=== PATIENT | female | born 1940 | race Caucasian/White ===

== ENCOUNTER 2021-11-11 17:34 | Emergency (ER) | payer OTHER, MEDICARE, SELFPAY ==
[2021-11-11 17:37] VITALS: BP 141/69; PULSE 89; RESP 14; TEMP 36.7; O2SAT 99; BMI 28.7
[2021-11-11 18:39] LABS: Absolute Lymphocyte Count 0.82 X10^3/uL (0.83-4.51); Absolute Neutrophil Count 4.4 X10^3/uL (2.0-7.7); Basophil# 0.02 X10^3/uL; Basophil% 0.3 % (0-1); Eosinophil# 0.17 X10^3/uL; Eosinophils% 2.8 % (0-5); Hematocrit 33.4 % (37-47); Hemoglobin 11.5 g/dL (12.0-15.0); Lymphocyte # 0.82 X10^3/ul (0.83-4.51); Lymphocyte % 13.7 % (19-41); Mean Corp Hgb Conc 34.4 g/dL (32-36); Mean Corpuscular Hgb 32.6 pg (27.0-32.0); Mean Corpuscular Volume 94.6 fL (81-99); Mean Platelet Vol. 10.4 fl (6.2-12.0); Monocyte# 0.59 X10^3/uL; Monocyte% 9.8 % (0-10); NRBC Flagged by Analyzer 0 % (0-5); Neutrophil # 4.38 X10^3/uL (2.7-7.7); Neutrophil % 73.2 % (47-70); Platelet Count 206 K/mm3 (150-450); RBC Distribution Width CV 11.5 % (11.6-14.6); RBC Distribution Width SD 39.1 fl (35.1-43.9); Red Blood Count 3.53 M/mm3 (4.2-5.4)
[2021-11-11 18:56] LABS: ALB/GLOB Ratio 1.2 RATIO (0.9-2.4); AST(SGOT) 17 U/L (15-37); Alanine Aminotransfer ALT/SGPT 27 U/L (13-56); Albumin, Serum 3.6 g/dL (3.2-5.0); Alkaline Phosphatase 83 U/L (45-117); Anion Gap 6 (5-15); BUN 32 mg/dL (7-18); BUN/Creat Ratio 17.9 RATIO (10-20); Calcium,Total 8.7 mg/dL (8.5-10.1); Chloride 108 mmol/L (98-107); Creatinine, Serum 1.79 mg/dL (0.55-1.02); EST Glomerular Filtration Rate 29 mL/min (>60); Est Glom Filt Rate - Afr Amer 35 mL/min (>60); Estimated Creatinine Clearance 22.01 ml/min; Glucose 112 mg/dL (74-106); Potassium 3.6 mmol/L (3.5-5.1); Protein, Total 6.6 g/dL (6.4-8.2); Sodium Level 137 mmol/L (136-145)
[2021-11-11 18:58] LABS: Prothrombin Time (Protime)PT. 12.4 SECONDS (11.7-14.9)
[2021-11-11 18:59] LABS: Partial Thromboplast Time 24.8 Seconds (24.1-36.2)
--- NOTE | 2021-11-11 19:55 | EDS_ITS ---
HPI History of Present Illness Chief Complaint: GI Bleed Informant: patient Narrative Narrative: Very pleasant 81-year-old female arriving to the emergency department chief complaint of bright red blood per rectum. Patient states that she had a bowel movement at 4:00 and at 5:00 this afternoon in which the stool was brown but there was bright red blood. She denies any syncope or lightheadedness. She is recently started on aspirin and Plavix because of a stroke. Patient reports a recent colonoscopy with Dr. Asif and states that she was told it was negative. She denies any history of diverticulosis. She denies any rectal pain. No prior aortic repair. [facility] Medical History (Updated 11/11/21 @ 19:[address] August Anna DO) Stroke Home Medications aspirin 81 mg tablet,delayed release 81 mg PO DAILY 11/11/21 [History Last Taken Unknown] atorvastatin 80 mg tablet (Lipitor) 80 mg PO QHS 11/11/21 [History Last Taken Unknown] biotin 1,000 mcg chewable tablet 1,000 mcg PO DAILY 11/11/21 [History Last Taken Unknown] clopidogrel 75 mg tablet (Plavix) 75 mg PO DAILY 11/11/21 [History Last Taken Unknown] levothyroxine 75 mcg tablet 75 mcg PO DAILY 11/11/21 [History Last Taken Unknown] Allergy/AdvReac Type Severity Reaction Status Date / Time nitrofurantoin Allergy Hives Verified 11/11/21 17:36 [From Macrodantin] benzonatate AdvReac Other Verified 11/11/21 17:36 [From Tessalon Perles] Social History (Updated 11/11/21 @ 19:[address] August Anna DO) current gender identity: female Smoking Status: Former smoker ROS ROS ED Constitutional Constitutional ED: Denies chills or weight loss Eyes Eyes: Denies change in vision or diplopia ENT ENT ED: Denies ear pain, rhinorrhea or sore throat Cardiovascular Cardiovascular: Denies chest pain, orthopnea, palpitations or racing heartbeat Respiratory/Chest Respiratory/Chest: Denies cough, dyspnea or orthopnea Gastrointestinal Gastrointestinal: Reports other Details: Rectal bleeding ; Denies abdominal pain, diarrhea, nausea or vomiting Genitourinary Genitourinary ED: Denies dysuria, hematuria or urinary frequency Musculoskeletal Musculoskeletal: Denies arthralgias or myalgias Integumentary Denies abscess or rash Neurologic Neurologic: Denies headache(s) or weakness Psychiatric Psychiatric: Denies anxiety, depression, suicidal ideation or suicidal thoughts Endocrine Endocrinology: Denies polydipsia, polyphagia or polyuria Allergic/Immunologic Allergic/Immunologic ED: Denies mouth swelling, tongue swelling or urticaria EXAM Physical Exam Const Vital Signs: 11/11/21 17:37 Temperature 98.1 F Temperature Source Temporal Pulse Rate 89 Respiratory Rate 14 Blood Pressure 141/69 H Blood Pressure Mean 93 Pulse Ox 99 Oxygen Delivery Method Room Air Positive well nourished and well developed General Appearance ED: well developed HEENT Reports normocephalic, head/scalp atraumatic and moist mucous membranes Eyes PERRL and EOMs intact bilaterally Neck no lymphadenopathy, supple and no JVD Resp normal respiratory effort and clear to auscultation bilaterally Cardio regular rate, regular rhythm and no murmurs GI normal to inspection, nondistended, normoactive bowel sounds and non-tender Palpation: soft Narrative: On rectal examination there is bright red blood on the glove. There is no anal fissure or external hemorrhoid. Stool is brown Back/Spine no CVA tenderness and normal ROM Extremity normal to inspection General Extremety ED: Negative for edema General Extremity: Negative for edema Neuro oriented x3 and CN's II-XII intact bilaterally Sensorium / Orientation: alert Motor Exam: strength 5/5 throughout Psych mental status grossly normal Mood & Affect: Negative for depressed or tearful Skin no rashes or lesions noted and no wounds MDM MDM MDM Narrative Medical decision making narrative: Patient's hemoglobin is 11.5. I do not have anything old to compare to and she does not know what her hemoglobin would typically run. She is hemodynamically stable. She has had no further bleeding. I think it is reasonable that we discharge her home and have her observe. If she continues to bleed she would need to have her hemoglobin rechecked and possibly admission. Patient notes understanding of the plan Lab Data Attestation: I reviewed the patient's lab results. Labs: Laboratory Results - last 24 hr 11/11/21 11/11/21 11/11/21 18:00 18:00 18:00 WBC 6.0 RBC 3.53 L Hgb 11.5 L Hct 33.4 L MCV 94.6 MCH 32.6 H MCHC 34.4 RDW Std Deviation 39.1 RDW Coeff of Kristy 11.5 L Plt Count 206 MPV 10.4 Immature Gran % (Auto) 0.200 Neut % (Auto) 73.2 H Lymph % (Auto) 13.7 L Mason % (Auto) 9.8 Eos % (Auto) 2.8 Baso % (Auto) 0.3 Absolute Neuts (auto) 4.4 Absolute Lymphs (auto) 0.82 L Nucleated RBC % 0 PT 12.4 INR 1.0 APTT 24.8 Sodium 137 Potassium 3.6 Chloride 108 H Carbon Dioxide 23.0 Anion Gap 6 BUN 32 H Creatinine 1.79 H Estim Creat Clear Calc 22.01 Est GFR (MDRD) Af Amer 35 L Est GFR (MDRD) Non-Af 29 L BUN/Creatinine Ratio 17.9 Glucose 112 H Calcium 8.7 Total Bilirubin 0.30 AST 17 ALT 27 Alkaline Phosphatase 83 Total Protein 6.6 Albumin 3.6 Globulin 3.0 Albumin/Globulin Ratio 1.2 Discharge Plan Triage Chief Complaint: GI Bleed ED Provider: August Anna Dx/Rx/DC Orders Clinical Impression: Acute lower gastrointestinal bleeding Instructions: ED Lower GI Bleeding (Stable) Prescriptions: No Action atorvastatin [Lipitor] 80 mg Tablet 80 mg PO QHS clopidogrel [Plavix] 75 mg Tablet 75 mg PO DAILY aspirin [Aspir-81] 81 mg Tablet,Delayed Release (Dr/Ec) 81 mg PO DAILY levothyroxine 75 mcg Tablet 75 mcg PO DAILY biotin 1,000 mcg Tablet,Chewable 1,000 mcg PO DAILY Primary Care Provider: Reddy Crowe Referrals: Reddy Crowe MD [Primary Care Provider] - As Needed Disposition Disposition: Home, Self Care
[2021-11-11 20:08] VITALS: PULSE 85; RESP 18; O2SAT 96
== END 2021-11-11 20:10 | disposition home or self-care (01) ==
PROVIDERS: Emergency Provider Emergency Medicine; PCP Family Medicine; Visit Provider Emergency Medicine
DX: K92.1 Melena (principal); Z87.891 Personal history of nicotine dependence; Z86.73 Personal history of transient ischemic attack (TIA), and cerebral infarction without residual deficits; Z79.82 Long term (current) use of aspirin; Z79.02 Long term (current) use of antithrombotics/antiplatelets; Z79.899 Other long term (current) drug therapy
CPT/HCPCS: 80053; 85025; 85610; 85730; 99283; A4216

== ENCOUNTER 2022-09-23 09:53 | Emergency (ER) | payer MEDICARE, SELFPAY ==
[2022-09-23] VITALS (11 sets, daily range): BP systolic 108–180; BP diastolic 53–86; PULSE 50–68; RESP 13–18; TEMP 36.1; O2SAT 96–100; BMI 27.8
--- NOTE | 2022-09-23 10:12 | CT_ITS ---
We are attempting to reach an attending provider to discuss findings. An addendum with communication details will be sent when the communication is complete. EXAM: CT HEAD WITHOUT INTRAVENOUS CONTRAST CLINICAL INDICATION: Neuro deficit, acute, stroke suspected TECHNIQUE: Multiple axial images were obtained of the head without intravenous contrast. This CT exam was performed using one or more of the following dose reduction techniques: automated exposure control, adjustment of the mA and/or kV according to patient size, and/or use of iterative reconstruction technique. COMPARISON: No relevant prior studies available. FINDINGS: BRAIN AND EXTRA-AXIAL SPACES: Areas of diminished white matter density noted within both cerebral hemispheres suggestive of chronic microvascular change. No hemorrhage or mass effect. No evidence of acute ischemia. BONES/JOINTS: No suspicious lytic or blastic abnormality. SINUSES: No acute sinusitis. MASTOID AIR CELLS: Normal. Clear. ORBITS: Visualized globes, extraocular muscles, optic nerves and retrobulbar fat appear unremarkable. CT/STROKE Brain/Head without Cont IMPRESSION: 1. No acute intracranial abnormality. 2. Senescent changes. Aspect score 10 Electronically Signed: Kenny Knight MD at 11:38 EDT ,
--- NOTE | 2022-09-23 10:12 | EKG12_ITS ---
Test Reason : DIZZY Blood Pressure : / mmHG Vent. Rate : 051 BPM Atrial Rate : 051 BPM P-R Int : 156 ms QRS Dur : 078 ms QT Int : 454 ms P-R-T Axes : 051 032 041 degrees QTc Int : 418 ms Sinus bradycardia Otherwise normal ECG Confirmed by KWAN TIERNEY, MILLICENT ([id number]), content editor RAISA ANGLIN ([id number]) on 09/27/2022 2:28:28 PM Referred By: Confirmed By:BERT BOWENS MD
--- NOTE | 2022-09-23 10:13 | CT_ITS ---
INDICATION: Neuro deficit, acute, stroke suspected EXAMINATION: CTA HEAD - CTA Head and Neck W/ Contrast Injection (and W/O Contrast Images if performed) TECHNIQUE: [place] of [place]/head CT angiogram protocol was performed following IV contrast. Routine carotid CT angiogram protocol was performed without and with IV contrast. NASCET criteria using the distal ICAs for comparison were used for evaluation of stenoses. 3D reconstructions were reviewed of the CT angiogram head and neck. A radiation dose optimization technique was used for this scan. IV Contrast dosage and agent: 75 cc [id number] COMPARISON: None. FINDINGS: --Anterior cerebral circulation: ACAs: No significant stenosis at the visualized segments. ACOM: Not present. MCAs: 2 of the branches at the trifurcation of the right M1 segment appears significantly stenotic without occlusion. Left MCA and branches appear normal. --Posterior cerebral circulation: PCOMs: Right P-comm is present giving rise to the right PERIODICALS LIBRARY ASSISTANT. intellectual property paralegal: No significant stenosis at the visualized segments. BASILAR ARTERY: No significant stenosis. --Carotid and vertebral circulation: AORTIC ARCH AND BRANCHES: Normal anatomy, patent. RIGHT CCA: No occlusion, significant stenosis or dissection. RIGHT ICA: No occlusion, significant stenosis or dissection. LEFT CCA: No occlusion, significant stenosis or dissection. LEFT ICA: No occlusion, significant stenosis or dissection. RIGHT VERTEBRAL ARTERY: No occlusion, significant stenosis or dissection. LEFT VERTEBRAL ARTERY: No occlusion, significant stenosis or dissection. NECK SOFT TISSUES: Unremarkable. LUNG APICES: Clear. BONES: Unremarkable. 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 Otherwise unremarkable CTA head and neck. N.B. : The above Results were Read Back by Kenny Knight MD to Julio Marques and understanding confirmed on 09/23/2022 11:53:25 (ET). Electronically Signed: Kenny Knight MD at 11:54 EDT ,
--- NOTE | 2022-09-23 10:17 | NURSING ---
NO OLD EKGS
--- NOTE | 2022-09-23 10:19 | ED.VIS.STROK ---
HPI History of Present Illness Chief Complaint: Dizziness Narrative Narrative: Patient present with a chief complaint of dizziness, mild headache, and some left foot numbness. She states the symptoms started last evening. She states she just has a mild ache in her head. Its not bad or sudden on onset/thunderclap. She states her dizziness is just a feeling as though she might be on a boat. But its not spinning. Is just a little bit of unsteady feeling. But she states she walks without any difficulty at all. She does not lean to one side or have to grab anything. She does not feel presyncopal. She just feels like her balance is a little harder to control than normal. She also then noted that she has some numbness of her left foot only. And it is distal to the ankle all the way down to the toes. Nothing proximally. Nothing in upper extremities. No weakness. Nothing seems to make the symptoms better or worse. Patient does have a history of a stroke approximately 1 year ago in October 2021. She presented with aphasia. It resolved in 24 to 36 hours. She used to be on Plavix and aspirin. They also placed a loop recorder in about that time because as I suspect there was a question of possible A-fib. This July she was admitted to a hospital in [place]. That was for pneumonia. But she was found to be in atrial fibrillation. At that time she was placed on Eliquis and is still taking it as prescribed. She is also on a low-dose of metoprolol. Other medicines include levothyroxine. She is not on a statin aspirin or Plavix at this time. [facility] Medical History (Updated 09/23/22 @ 16:[address] Julio Marques MD) Atrial fibrillation Stroke Home Medications biotin 1,000 mcg chewable tablet 1,000 mcg PO DAILY 11/11/21 [History Last Taken Unknown] levothyroxine 75 mcg tablet 75 mcg PO DAILY 11/11/21 [History Last Taken Unknown] apixaban 2.5 mg tablet (Eliquis) 2.5 mg PO DAILY 09/23/22 [History Last Taken Unknown] metoprolol tartrate 25 mg tablet 25 mg PO BID 09/23/22 [History Last Taken Unknown] Allergy/AdvReac Type Severity Reaction Status Date / Time nitrofurantoin Allergy Hives Verified 09/23/22 09:54 [From Macrodantin] benzonatate AdvReac Other Verified 09/23/22 09:54 [From Tessalon Jena] Social History Smoking Status: Former smoker ROS ROS ED Constitutional Constitutional ED: Denies chills, fever(s) or weakness ENT ENT ED: Denies rhinorrhea or sore throat Cardiovascular Cardiovascular: Denies chest pain, palpitations or racing heartbeat Respiratory/Chest Respiratory/Chest: Denies cough or dyspnea Gastrointestinal Gastrointestinal: Denies nausea or vomiting Genitourinary Genitourinary ED: Denies hematuria Musculoskeletal Musculoskeletal: Denies myalgias Integumentary Denies rash Neurologic Neurologic: Reports headache(s) and paresthesias; Denies weakness Hematologic/Lymphatic Hematologic/Lymphatic: Reports easy bleeding and easy bruising Allergic/Immunologic Allergic/Immunologic ED: Denies urticaria EXAM Physical Exam Narrative Exam Narrative: Patient is awake alert sitting comfortably in bed. I watched her walk in down the koo when I came in. She had a good stable gait and was not ataxic or wide-based. HEENT shows no trauma. Eyes show normal range of motion. There is no visual field cut to direct confrontation. Neck shows no pain with motion. There is no carotid bruit heard on either side. Lungs are clear bilaterally and saturations are normal 100% on room air. Heart is regular. Slightly bradycardic. Sounds to be in normal sinus rhythm. I do not hear any murmurs. Abdomen is soft and completely nontender Back shows no tenderness on the neck thoracic or lumbar area. Extremities show no edema cords. Neurologic: Normal coordination visual strength throughout. She has an NIH of 1 losing 1 point for some very subtle sensory loss on the dorsum of the left foot compared with the right. She still feels the area but it does feel different. Skin shows no abnormal bruising or petechiae. No diaphoresis. No pallor. Const Vital Signs: 09/23/22 09:54 09/23/22 10:30 09/23/22 10:30 Temperature 97 F L Temperature Source Temporal Pulse Rate 58 L 50 L Respiratory Rate 14 18 Blood Pressure 143/82 H 139/53 H Blood Pressure Mean 102 81 Pulse Ox 100 96 96 Oxygen Delivery Method Room Air Room Air Room Air 09/23/22 11:00 09/23/22 11:30 09/23/22 13:13 Temperature Temperature Source Pulse Rate 53 L 54 L 51 L Respiratory Rate 16 16 15 Blood Pressure 137/67 H 180/74 H 134/63 H Blood Pressure Mean 90 109 86 Pulse Ox 96 97 98 Oxygen Delivery Method Room Air Room Air 09/23/22 12:00 09/23/22 12:30 09/23/22 13:00 Temperature Temperature Source Pulse Rate 56 L 51 L 50 L Respiratory Rate 18 14 13 Blood Pressure 134/63 H 125/66 H Blood Pressure Mean 86 85 Pulse Ox 99 97 97 Oxygen Delivery Method Room Air Room Air Room Air 09/23/22 15:00 Temperature Temperature Source Pulse Rate 57 L Respiratory Rate 14 Blood Pressure 109/86 H Blood Pressure Mean 93 Pulse Ox 99 Oxygen Delivery Method Room Air MDM MDM MDM Narrative Medical decision making narrative: My independent interpretation the patient's CT of the head shows no acute process. Final reading is similar. Radiology is reading of the CTA shows possible stenosis of 2 branches of trifurcation of her right MCA. Blood work shows minimal anemia which is not the source of her symptoms. Coagulation studies are normal. Electrolytes showed mild renal dysfunction but better than her baseline. We discussed case with teleneurology. They did not have the CT at the time. I called back and talk again to the neurologist. He looked at the images of the CT. His concern is that this is not stenosis but may be subtotal or subacute occlusive clot. He thought she should be at a facility that can do intervention if necessary. I talked with the family about this. Since all her care and family members work at [facility], she preferred to go there. Their family members were able to contact [facility] that actually called me. I had just gotten off the line with the transfer line for [facility] also. I discussed the case with Dr. Velasquez there. They will accept her in transfer. Patient was not given tPA as these symptoms are from last night, she is on Eliquis, and they have now resolved. Lab Data Labs: Laboratory Results - last 24 hr 09/23/22 09/23/22 09/23/22 10:19 10:22 10:22 WBC 8.2 RBC 3.88 L Hgb 11.2 L Hct 34.9 L MCV 89.9 MCH 28.9 MCHC 32.1 RDW Std Deviation 46.0 H RDW Coeff of Kristy 14.1 Plt Count 210 MPV 9.4 Immature Gran % (Auto) 0.200 Neut % (Auto) 72.8 H Lymph % (Auto) 12.8 L Grimes % (Auto) 6.2 Eos % (Auto) 7.6 H Baso % (Auto) 0.4 Absolute Neuts (auto) 6.0 Absolute Lymphs (auto) 1.05 Nucleated RBC % 0 PT 14.2 INR 1.1 APTT 27.0 Sodium Potassium Chloride Carbon Dioxide Anion Gap BUN Creatinine Estim Creat Clear Calc Est GFR (MDRD) Af Amer Est GFR (MDRD) Non-Af BUN/Creatinine Ratio Glucose Calcium Troponin I High Sens TSH POC Glucose 103 09/23/22 10:22 WBC RBC Hgb Hct MCV MCH MCHC RDW Std Deviation RDW Coeff of Kristy Plt Count MPV Immature Gran % (Auto) Neut % (Auto) Lymph % (Auto) Grimes % (Auto) Eos % (Auto) Baso % (Auto) Absolute Neuts (auto) Absolute Lymphs (auto) Nucleated RBC % PT INR APTT Sodium 137 Potassium 4.2 Chloride 104 Carbon Dioxide 26.0 Anion Gap 7 BUN 27 H Creatinine 1.56 H Estim Creat Clear Calc 24.84 Est GFR (MDRD) Af Amer 41 L Est GFR (MDRD) Non-Af 34 L BUN/Creatinine Ratio 17.3 Glucose 113 H Calcium 8.9 Troponin I High Sens 9 TSH 1.16 POC Glucose Radiography Diagnostic Testing: Clinical Impression(s) from Imaging Studies Brain CT 09/23/22 10:12 IMPRESSION: 1. No acute intracranial abnormality. 2. Senescent changes. Aspect score 10 Electronically Signed: Kenny Knight MD at 11:38 EDT , ADDENDUM: 09/23/22 1200 IMPRESSION: 1. No acute intracranial abnormality. 2. Senescent changes. Aspect score 10 N.B. : The above Results were Read Back by Kenny Knight MD to Julio Marques MD, and understanding confirmed on 09/23/2022 11:53:34 (ET). 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 Otherwise unremarkable CTA head and neck. N.B. : The above Results were Read Back by Kenny Knight MD to Julio Marques and understanding confirmed on 09/23/2022 11:53:25 (ET). 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 Otherwise unremarkable CTA head and neck. N.B. : The above Results were Read Back by Kenny Knight MD to Julio Marques and understanding confirmed on 09/23/2022 11:53:25 (ET). Electronically Signed: Kenny Knight MD at 11:54 EDT Reading Location ID and State: [facility] / [place] Tel , Service support , Chest X-Ray 09/23/22 11:30 IMPRESSION: No acute cardiopulmonary abnormality. Moderate size hiatal hernia. Electronically Signed: Kenny Knight MD at 11:57 EDT , EKG Initial EKG: Comments: My independent interpretation the patient's EKG that was done to look for possible rhythm abnormality shows a normal sinus rhythm but bradycardic rate at 51. No ectopy. No acute ST elevation or depression. NH interval, QRS duration and QTc are all normal. Critical Care Time Critical Care Time: Yes Critical care time (excluding procedures): 30-74 minutes, Discussing w/Patient &/or Family/Campground Attendant, Discussing w/Consultants, Arranging Admission or Transfer, Performing Direct Patient Care at Bedside and - (38 minutes several revisits, risk for worsening stroke, adding therapy, multiple discussions, risk for decompensation) Discharge Plan Triage Chief Complaint: Dizziness ED Provider: Julio Marques Dx/Rx/DC Orders Clinical Impression: TIA on medication, Coagulopathy, Cephalalgia Prescriptions: No Action levothyroxine 75 mcg Tablet 75 mcg PO DAILY biotin 1,000 mcg Tablet,Chewable 1,000 mcg PO DAILY metoprolol tartrate 25 mg tablet 25 mg PO BID Eliquis 2.5 mg tablet 2.5 mg PO DAILY Primary Care Provider: Reddy Crowe Referrals: Reddy Crowe MD [Primary Care Provider] - Disposition Disposition: Acute Care Hospital Discharge Location: [facility]
[2022-09-23 10:33] LABS: Absolute Lymphocyte Count 1.05 X10^3/uL (0.83-4.51); Basophil# 0.03 X10^3/uL; Basophil% 0.4 % (0-1); Eosinophil# 0.62 X10^3/uL; Eosinophils% 7.6 % (0-5); Hematocrit 34.9 % (37-47); Hemoglobin 11.2 g/dL (12.0-15.0); Lymphocyte # 1.05 X10^3/ul (0.83-4.51); Lymphocyte % 12.8 % (19-41); Mean Corp Hgb Conc 32.1 g/dL (32-36); Mean Corpuscular Hgb 28.9 pg (27.0-32.0); Mean Corpuscular Volume 89.9 fL (81-99); Mean Platelet Vol. 9.4 fl (6.2-12.0); Monocyte# 0.51 X10^3/uL; Monocyte% 6.2 % (0-10); NRBC Flagged by Analyzer 0 % (0-5); Neutrophil # 5.97 X10^3/uL (2.7-7.7); Neutrophil % 72.8 % (47-70); Platelet Count 210 K/mm3 (150-450); RBC Distribution Width CV 14.1 % (11.6-14.6); Red Blood Count 3.88 M/mm3 (4.2-5.4); White Blood Count 8.2 K/mm3 (4.4-11.0)
[2022-09-23 10:41] LABS: Bedside Glucose 103 mg/dL (74-106)
[2022-09-23 11:02] LABS: International Normalized Ratio 1.1; Prothrombin Time (Protime)PT. 14.2 SECONDS (11.7-14.9)
[2022-09-23 11:11] LABS: BUN 27 mg/dL (7-18); Creatinine, Serum 1.56 mg/dL (0.55-1.02); Estimated Creatinine Clearance 24.84 ml/min; Glucose 113 mg/dL (74-106)
[2022-09-23 11:12] LABS: Anion Gap 7 (5-15); BUN/Creat Ratio 17.3 RATIO (10-20); Calcium,Total 8.9 mg/dL (8.5-10.1); Chloride 104 mmol/L (98-107); EST Glomerular Filtration Rate 34 mL/min (>60); Est Glom Filt Rate - Afr Amer 41 mL/min (>60); Potassium 4.2 mmol/L (3.5-5.1); Sodium Level 137 mmol/L (136-145); Thyroid Stim Hormone (TSH) 1.16 uIU/mL (0.358-3.74); Troponin-I HS 9 pg/mL (3.0-54.0)
--- NOTE | 2022-09-23 11:30 | RAD_ITS ---
EXAM: XR CHEST, 1 VIEW CLINICAL INDICATION: Neuro deficit, acute, stroke suspected TECHNIQUE: Frontal view of the chest. COMPARISON: No relevant prior studies available. FINDINGS: LUNGS AND PLEURAL SPACES: Normal. No consolidation or edema. No pneumothorax. No effusion. HEART: Normal heart size. MEDIASTINUM: Moderate size hiatal hernia. BONES/JOINTS: No acute abnormality. TUBES, LINES AND DEVICES: Loop recorder in place. RAD/Chest 1 View IMPRESSION: No acute cardiopulmonary abnormality. Moderate size hiatal hernia. Electronically Signed: Kenny Knight MD at 11:57 EDT ,
--- NOTE | 2022-09-23 14:21 | ED.RN ---
PER DR. RAJAN, WE CAN COMPLETE NIH'S AT THIS TIME.
[2022-09-23] MEDS: Aspirin 325 MG Tablet PO (14:34)
--- NOTE | 2022-09-23 17:14 | ED.RN ---
per pt she updated daughter on leaving and did not want daughter called at this time.
== END 2022-09-23 17:15 | disposition short-term general hospital (02) ==
PROVIDERS: Emergency Provider Emergency Medicine; PCP Family Medicine; Visit Provider Emergency Medicine
DX: G45.9 Transient cerebral ischemic attack, unspecified (principal); I48.91 Unspecified atrial fibrillation; D68.9 Coagulation defect, unspecified; Z87.891 Personal history of nicotine dependence; Z79.01 Long term (current) use of anticoagulants; Z86.73 Personal history of transient ischemic attack (TIA), and cerebral infarction without residual deficits; R51.9 Headache, unspecified
CPT/HCPCS: 70450; 70496; 70498; 71045; 80048; 82962; 84443; 84484; 85025; 85610; 85730; 93005; 99284; Q9967; A4216

== ENCOUNTER 2022-10-05 15:40 | Inpatient (IN) | payer MEDICARE, SELFPAY ==
[2022-10-05 15:46] VITALS: BP 138/59; PULSE 59; RESP 16; TEMP 36.7; O2SAT 98; BMI 27.9
[2022-10-05 21:20] VITALS: BP 133/52; PULSE 64; RESP 18; TEMP 35.7; O2SAT 98; BMI 27.9
--- NOTE | 2022-10-05 21:34 | HP.PCM_ITS ---
[facility] - General General Date of Admission: 10/05/22 Date of Service: 10/05/22 HPI Narrative 09/23/2022 NAOMI HARRISON, is a 82 Female who presents to [facility] Emergency Department with stroke like symptoms. Transfer to [facility]. 09/23/2022 Admit to [facility]. Sudden onset headache, persistent headache, left leg numbness for 7 hours. Symptoms resolved upon arrival to [facility] ED. 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 EKG okay, Bilateral ICA negative significant stenosis. Order MRI brain, hold eliquis until ischemic stroke ruled out. Start Atorvastatin 40mg daily. CKD stage 3a baseline. 09/24/2022 MRI brain showed multiple scattered infarcts in right MCA territory. 09/25/2022 Fell with left ankle fracutre. 09/28/2022 ORIF left bimalleolar ankle fracture with Dr. Hayden. 09/29/2022 NWB left lower extremity, short leg splint. PT/OT. Passed swallow screen. Liver enzymes elevated to high doses of Percocet, but trending down. 10/05/2022 Admit to for 3 hours daily rehabilitation, strengthening, prior to discharge home alone. [facility] Medical History (Updated 10/05/22 @ 21:[address] Ramin Pedroza MD) Atrial fibrillation Hypothyroid Hypothyroidism Stroke Home Medications biotin 1,000 mcg chewable tablet 1,000 mcg PO DAILY Check with primary doctor 11/11/21 [History Last Taken Unknown] levothyroxine 75 mcg tablet 75 mcg PO DAILY hypothyroid 11/11/21 [History Last Taken Unknown] apixaban 2.5 mg tablet (Eliquis) 2.5 mg PO BID A-Fib 09/23/22 [History Last Taken Unknown] metoprolol tartrate 25 mg tablet 25 mg PO BID BP/HR 09/23/22 [History Last Taken Unknown] ergocalciferol (vitamin D2) 1,000 unit capsule 1,000 unit PO DAILY supplement 10/05/22 [History Last Taken Unknown] hydrocortisone 2.5 % rectal cream with applicator 1 ea MT 0600,2200 hemorrhoids 10/05/22 [History Last Taken Unknown] oxycodone 5 mg capsule 5 mg PO Q6H PRN Pain 1-10 10/05/22 [History Last Taken Unknown] pantoprazole 40 mg tablet,delayed release 40 mg PO 0600,1600 Check with primary doctor 10/05/22 [History Last Taken 10/05/22 06:00] pantoprazole 40 mg tablet,delayed release 40 mg PO DAILY Check with primary doctor 10/05/22 [History Last Taken Unknown] propranolol 10 mg tablet 10 mg PO BID PRN elevated BP/HR 10/05/22 [History Last Taken Unknown] triamcinolone acetonide 0.025 % topical cream 1 applic topical BID PRN itchy 10/05/22 [History Last Taken Unknown] Allergy/AdvReac Type Severity Reaction Status Date / Time nitrofurantoin Allergy Hives Verified 09/23/22 09:54 [From Macrodantin] benzonatate AdvReac Other Verified 09/23/22 09:54 [From Tessalon Perles] Family History (Updated 10/05/22 @ 21:[address] Ramin Pedroza MD) Father CAD (coronary artery disease) Diabetes Brother Multiple sclerosis Brother ALS (amyotrophic lateral sclerosis) Grandfather CAD (coronary artery disease) Surgical History (Updated 10/05/22 @ 21:[address] Ramin Pedroza MD) History of blepharoplasty History of hernia surgery History of mandibular surgery S/P skin biopsy Social History (Updated 10/05/22 @ 21:[address] Ramin Pedroza MD) household members: none Smoking Status: Former smoker alcohol intake: current alcohol intake frequency: 0-2 drinks per day Alcohol type: wine details: 2 glasses of wine every 2 weeks. substance use type: does not use ROS Constitutional Constitutional: Denies chills, fever(s) or weight gain ENT HEENT: Denies headache(s), nasal congestion or nasal discharge Cardiovascular Cardiovascular: Denies chest pain or palpitations Respiratory/Chest Respiratory/Chest: Denies cough, excessive phlegm production or shortness of breath with exertion Gastrointestinal Gastrointestinal: Denies abdominal pain, nausea or vomiting Genitourinary Genitourinary: Denies dysuria Musculoskeletal Musculoskeletal: Denies joint pain or joint swelling Integumentary Integumentary: Denies rash or wounds Neurologic Neurologic: Denies focal weakness, numbness or tingling Psychiatric Psychiatric: Denies anxiety, auditory hallucinations, depression, homicidal ideation or suicidal ideation Vital Signs Vital Signs Vital Signs: 10/05/22 15:46 Temperature 98.1 F Temperature Source Temporal Pulse Rate 59 L Respiratory Rate 16 Blood Pressure 138/59 H Blood Pressure Mean 85 Blood Pressure Source Monitor Blood Pressure Position Semi-Fowlers Blood Pressure Location Right Arm Pulse Ox 98 Oxygen Delivery Method Room Air Weight Weight: 73.8 kg Body Mass Index (BMI) 27.9 Indicators for Scoring Admitted with or Primary Diagnosis of CVA/Stroke: Yes Hx of CVA/Stroke: Yes Modified José Miguel Score MRS Score at time of Evaluation: 1-No significant disability NIHSS NIHSS 1a. Level of Consciousness: Alert; keenly responsive 1b. LOC Questions: Answers BOTH questions correctly. 1c. LOC Commands: Performs both tasks correctly. 2. Best Gaze: Normal 3. Visual: No visual loss 4. Facial Palsy: Normal symmetrical movements 5a. Left Arm: No drift; arm holds 90 (or 45) degrees for full 10 seconds 5b. Right Arm: No drift; arm holds 90 (or 45) degrees for full 10 seconds 6a. Left Leg: No drift; leg holds 30-degree position for full 5 seconds 6b. Right Leg: No drift; leg holds 30-degree position for full 5 seconds 7. Limb Ataxia: Absent 8. Sensory: Normal; no sensory loss 9. Best Language: No aphasia; normal 10. Dysarthria: Normal 11. Extinction and Inattention: No abnormality Total: 0 Physical Exam Const alert General Appearance: cooperative HEENT normocephalic Eyes PERRL and EOMs intact bilaterally Neck supple, no JVD and no carotid bruits Resp normal respiratory effort, normal air movement and clear to auscultation bi laterally Cardio regular rate and regular rhythm GI normal to inspection, nondistended, normoactive bowel sounds, non-tender and non-distended Extremity normal capillary refill Extremity Narrative: Left lower extremity splint. General Extremity: Negative for edema Skin no rashes or lesions noted General Skin Exam: no breakdown Psych affect normal Appearance: appropriate Assessment & Plan Assessment/Plan (1) Debility: (2) Bimalleolar fracture of left ankle: (3) Acute right MCA stroke: (4) Atrial fibrillation: (5) Chronic kidney disease, stage 3a: (6) Hypothyroidism: (7) Allergic rhinitis: PLAN: Plan 82 year old female with below past medical history hospitalized for multiple embolic infarcts right MCA territory, complicated by bimalleolar left ankle fracture requiring ORIF 09/28/2022, admitted to for 3 hours daily rehabilitation, strengthening, prior to discharge home alone. * Debility - PT/OT/ST. * Pain - Tylenol 1000mg q6h prn pain (1-5), Oxycodone 5mg q4h prn pain (6-10). * Bowel - senna/colace 2 tablets bid, Dulcolax 10mg pr x 1 prn, MOM 30ml po x 1 prn. * Atrial fibrillation - Metoprolol 25mg bid, Eliquis 2.5mg bid. * Rash - HC 2.5% bid, and bid prn. * Hypothyroidism - Levothyroxine 75mcg daily. * Gastritis - Pantoprazole 40mg bid thru 10/13/2022, then 40mg daily. * Bimalleolar left ankle fracture s/p ORIF - LLE short leg splint, NWB left lower extremity, follow with Dr. Hayden. * Vitamin D deficiency - D3 25mcg daily.
[2022-10-05] MEDS: oxyCODONE 5 MG Tablet PO (21:41)
[2022-10-05 21:42] VITALS: BP 133/52; PULSE 64
[2022-10-05] MEDS: Senna/Docusate Sodium 1 Tablet 2 TABLET PO (21:42)
[2022-10-05] MEDS: Hydrocortisone 2.5% Crm 1 APPLIC RC (21:42)
[2022-10-05] MEDS: Metoprolol Tartrate 25 MG Tablet PO (21:42)
[2022-10-05] MEDS: APIXABAN 2.5 MG TABLET (WCH) PO (21:42)
[2022-10-06] VITALS (7 sets, daily range): BP systolic 105–119; BP diastolic 52–56; PULSE 60–61; RESP 14–16; TEMP 36.8–37.4; O2SAT 95–98; BMI 27.8
[2022-10-06] MEDS: Hydrocortisone 2.5% Crm 1 APPLIC RC ×2 (05:49→20:37)
[2022-10-06] MEDS: Pantoprazole Sodium 40 MG Tablet PO ×2 (05:50→17:12)
[2022-10-06] MEDS: Levothyroxine 75 MCG Tablet PO (05:50)
[2022-10-06 06:04] LABS: Absolute Lymphocyte Count 2.12 X10^3/uL (0.83-4.51); Absolute Neutrophil Count 4.2 X10^3/uL (2.0-7.7); Basophil# 0.05 X10^3/uL; Basophil% 0.6 % (0-1); Hematocrit 31.7 % (37-47); Hemoglobin 9.9 g/dL (12.0-15.0); Lymphocyte # 2.12 X10^3/ul (0.83-4.51); Lymphocyte % 27.1 % (19-41); Mean Corp Hgb Conc 31.2 g/dL (32-36); Mean Corpuscular Hgb 29.2 pg (27.0-32.0); Mean Corpuscular Volume 93.5 fL (81-99); Mean Platelet Vol. 8.9 fl (6.2-12.0); Monocyte# 0.78 X10^3/uL; NRBC Flagged by Analyzer 0 % (0-5); Neutrophil # 4.15 X10^3/uL (2.7-7.7); Platelet Count 415 K/mm3 (150-450); RBC Distribution Width CV 14.8 % (11.6-14.6); RBC Distribution Width SD 51.1 fl (35.1-43.9); Red Blood Count 3.39 M/mm3 (4.2-5.4); White Blood Count 7.8 K/mm3 (4.4-11.0)
[2022-10-06 06:43] LABS: ALB/GLOB Ratio 0.6 RATIO (0.9-2.4); AST(SGOT) 72 U/L (15-37); Alanine Aminotransfer ALT/SGPT 83 U/L (13-56); Albumin, Serum 2.6 g/dL (3.2-5.0); Alkaline Phosphatase 527 U/L (45-117); Anion Gap 8 (5-15); BUN 28 mg/dL (7-18); BUN/Creat Ratio 17.9 RATIO (10-20); Calcium,Total 8.9 mg/dL (8.5-10.1); Chloride 105 mmol/L (98-107); Creatinine, Serum 1.56 mg/dL (0.55-1.02); EST Glomerular Filtration Rate 34 mL/min (>60); Est Glom Filt Rate - Afr Amer 41 mL/min (>60); Estimated Creatinine Clearance 24.84 ml/min; Globulin 4.1 g/dL (2.2-4.2); Glucose 103 mg/dL (74-106); Magnesium 2.2 mg/dL (1.6-2.6); Phosphorus 3.8 mg/dL (2.5-4.9); Potassium 3.9 mmol/L (3.5-5.1); Protein, Total 6.7 g/dL (6.4-8.2); Sodium Level 138 mmol/L (136-145)
[2022-10-06] MEDS: Cholecalciferol (VIT D3) 25 MCG TABLET (1,000 UNITS) PO (08:51)
[2022-10-06] MEDS: Metoprolol Tartrate 25 MG Tablet PO ×2 (08:51→20:36)
[2022-10-06] MEDS: APIXABAN 2.5 MG TABLET (WCH) PO ×2 (08:51→20:37)
--- NOTE | 2022-10-06 11:55 | PN_ITS ---
Subjective Subjective Patient seen, examined. She is eating breakfast. She has no new problems, concerns, issues, complaints. Pain is well controlled. Objective Data Objective Data Vital Signs: Vital Signs Temp Pulse Resp BP Pulse Ox O2 Del Method 98.2 F 60 16 119/52 L 97 Room Air 10/06/22 09:02 10/06/22 09:02 10/06/22 09:02 10/06/22 09:02 10/06/22 09:02 10/06/22 09:02 Oxygen Delivery Method Room Air Weight: 73.6 kg Body Mass Index (BMI) 27.8 Intake & Output: Intake and Output for Last 24 Hours 10/04/22 10/05/22 10/06/22 23:59 23:59 23:59 Intake Total 240 / 240 Output Total 200 / 200 200 / 200 Balance -200 / -200 40 / 40 Lab / Micro Data Result Diagrams: 10/06/22 05:55 10/06/22 05:55 Labs: Laboratory Results - last 24 hr 10/06/22 05:55: WBC 7.8, RBC 3.39 L, Hgb 9.9 L, Hct 31.7 L, MCV 93.5, MCH 29.2, MCHC 31.2 L, RDW Std Deviation 51.1 H, RDW Coeff of Kristy 14.8 H, Plt Count 415, MPV 8.9, Immature Gran % (Auto) 0.300, Neut % (Auto) 53.0, Lymph % (Auto) 27.1, Lynn % (Auto) 10.0, Eos % (Auto) 9.0 H, Baso % (Auto) 0.6, Absolute Neuts (auto) 4.2, Absolute Lymphs (auto) 2.12, Nucleated RBC % 0 10/06/22 05:55: Sodium 138, Potassium 3.9, Chloride 105, Carbon Dioxide 25.0, Anion Gap 8, BUN 28 H, Creatinine 1.56 H, Estim Creat Clear Calc 24.84, Est GFR (MDRD) Af Amer 41 L, Est GFR (MDRD) Non-Af 34 L, BUN/Creatinine Ratio 17.9, Glucose 103, Calcium 8.9, Phosphorus 3.8, Magnesium 2.2, Total Bilirubin 0.60, AST 72 H, ALT 83 H, Alkaline Phosphatase 527 H, Total Protein 6.7, Albumin 2.6 L , Globulin 4.1, Albumin/Globulin Ratio 0.6 L Physical Exam Const alert General Appearance: cooperative HEENT normocephalic Eyes PERRL and EOMs intact bilaterally Neck supple, no JVD and no carotid bruits Resp normal respiratory effort, normal air movement and clear to auscultation bilaterally Cardio regular rate and regular rhythm GI normal to inspection, nondistended, normoactive bowel sounds, non-tender and non-distended Extremity normal capillary refill Extremity Narrative: Left lower extremity short leg splint. General Extremity: Negative for edema Skin no rashes or lesions noted General Skin Exam: no breakdown Psych affect normal Appearance: appropriate Assessment & Plan Assessment/Plan (1) Debility: (2) Bimalleolar fracture of left ankle: (3) Acute right MCA stroke: (4) Atrial fibrillation: (5) Chronic kidney disease, stage 3a: (6) Hypothyroidism: (7) Allergic rhinitis: PLAN: Plan 82 year old female with below past medical history hospitalized for multiple embolic infarcts right MCA territory, complicated by bimalleolar left ankle fracture requiring ORIF 09/28/2022, admitted to for 3 hours daily rehabilitation, strengthening, prior to discharge home alone. * Debility - PT/OT/ST. * Pain - Tylenol 1000mg q6h prn pain (1-5), Oxycodone 5mg q4h prn pain (6-10). * Bowel - senna/colace 2 tablets bid, Dulcolax 10mg pr x 1 prn, MOM 30ml po x 1 prn. * Atrial fibrillation - Metoprolol 25mg bid, Eliquis 2.5mg bid. * Rash - HC 2.5% bid, and bid prn. * Hypothyroidism - Levothyroxine 75mcg daily. * Gastritis - Pantoprazole 40mg bid thru 10/13/2022, then 40mg daily. * Bimalleolar left ankle fracture s/p ORIF - LLE short leg splint, NWB left lower extremity, follow with Dr. Hayden. * Vitamin D deficiency - D3 25mcg daily. * Acute right MCA stroke - no deficits. Capacity Capacity Assessment Tool Can the patient make a choice & communicate that choice?: Yes Can the patient understand benefits, risks and alternatives?: Yes Can the patient make a logical, rational choice?: Yes Is the choice the patient makes consistent w/ their values?: Yes Is there an impending, emergent risk to the patient?: No Does the patient have an Advance Directive?: Yes Is there a Surrogate Available?: Yes i.e. HCPOA: Yes i.e. close relative (spouse, child, parent, sibling)?: Yes
--- NOTE | 2022-10-06 13:02 | REHABEVAL_ITS ---
Admission Information Primary Diagnosis:: Acute right MCA stroke, left bimalleolar fracture s/p ORIF. Status Changes from Prescreening?: No changes Identified Actual Problem List:: Falls, Pain, ALteration in Cmfrt, Alteration in Sleep, Mobility Impaired and Self Care Deficit Potential Problem List:: DVT, Bleeding, Infection, UTI, Aspiration, Falls, Skin Integrity and Depression Risk of Complications DVT: DEREK Hammonds Bleeding: Monitor Lab Values, Nursing to Teach Precautions for anti-coagulation therapy., Wound, if applicable, to be assessed every shift. and Stroke patients assessed for lethargy or change in status. Infection: Clinical Staff to Monitor for S/S of infection: and S/S of infection include fever, redness, warmth, etc. Urinary Tract Infection: Monitor for frequency, burning, discomfort, or incontinence. and Nursing will obtain urine sample for urinalysis and C&S when ordered. Aspiration: Clinical staff will monitor for coughing, drooling, congestion., Speech will evaluate swallowing and dsyphasia. and Nursing will monitor patient swallowing during meals. Falls: Patient will be evaluated for Fall Precautions and Patient will be placed on Fall Precautions as indicated per protocol. Skin Breakdown: Nursing will assess skin daily using assessment tool. and Nurs ing will place on Skin Breakdown Precautions as indicated. Pain: Clinical staff will assess patient's pain level per protocol., Medications will be given, if needed, and the pain level reassessed. and Other methods: Massage, distraction, decrease stimulus, etc. used PRN. Plan of Care Patient requires physician specializing in physical medicine and rehab oversight to provide close medical supervision of rehab issues including: Pain Management, Sleep Problems, Bowel and Bladder, Medical and co-morbidity Management, DVT pro phylaxis, Rehabilitation Leadership and Coordination of treatment team Patient needs Physical Therapy: For a minimum of 1 hour and At least 5 out of 7 days Patient needs Physical Therapy to improve:: Mobility, Strengthening, Transfers, Stretching, ROM, Endurance, Stairs, Gait and Balance Patient needs Occupational Therapy: For a minimum of 1 hour and At least 5 out of 7 days Patient needs Occupational Therapy to improve ADL's incl.: Eating, Grooming, Bathing, Dressing, Toileting, Toilet transfers, Higher functioning activities, Household tasks, Adaptive Equipment and Splinting Patient requires speech therapy: For a minimum of 1 hour and At least 5 out of 7 days Patient requires speech therapy for: Swallowing, Cognition, Language Skills and Compensatory Strategies Patient requires 24/7 Rehabilitation Nursing for: Pain Issues, Identifying and preventing risk factors, Monitoring and reporting current medical conditions, Assisting with ambulation, transfer, and all ADL's, Teaching patients about disease process and medications, Family teaching, Providing safe environment, Bowel and Bladder Issues, Skin integrity and Medication Management Patient needs Operator Automated Process/ Case Management for: Discharge Planning, Arranging Home Equipment or Services and Family Interventions Patient needs Dietary and Nutrition Services for: Adequate Nutrition and Nutritional Education Goals Patient will remain: free from falls and or injury at time of discharge. Patient will perform bed mobility at: MOD I level of assist. Patient will complete transfers from bed to chair at: MOD I level of assist. Patient will ambulate: with standby assist, with LRD and - (25 feet/) Patient will propel wheelchair: 100 feet and with standby assist Patient will complete upper body dressing at: MOD I level of assist. Patient will complete lower body dressing at: MOD I level of assist. Patient will complete toileting at: MOD I level of assist. Patient will perform bathing at: MOD I level of assist. Patient will complete grooming at: MOD I level of assist. Patient will complete home management skills at: MOD I level of assist. Patient will achieve: - (2 steps.) Patient will have pain level of: of 3 or less Patient's skin will: remain intact and free from infection. Patient will receive: adequate nutrition. Discharge Planning Pt Prognosis for Sig. Practical Improv. w/in Reasonable Time: Good Estimated Length of stay (days): 21 Anticipated D/C Destination: Home with Home Health Was Preadmission Assessment Accurate?: Yes
--- NOTE | 2022-10-06 15:34 | CHAPLAIN ---
Type of Pastoral Visit _x__ Initial Visit ___ Follow-up Visit ___ On-call Visit ___ General Patient Visit ___ Spiritual Assessment ___ Family Conference ___ Bereavement ___ Rapid Response ___ Code Blue ___ Other (describe below) Pastoral Care Referral From _x__ Patient ___ Family ___ Nurse ___ Physician ___ Real Estate Office Manager ___ Checking Clerk ___ Other (describe below) Sacrament/Intervention _x__ Active listening ___ Anointing ___ Rastafari ___ Bereavement ___ Communion ___ Teresa exploration ___ _x__ Life review ___ Prayer ___ Reconciliation ___ Sacrament of Sick ___ Supportive presence ___ Wedding ___ Other (describe below) Pastoral Comments patient reviews her reason for therapy and recent stroke that resulted in a fall; pt gives some life review; pt is recovering very well from the minor stroke but has assistance with foot after surgery; pt has a daughter nearby; pt does not indicate any other concerns; pt states she is fine and will ask for further support if needed
[2022-10-06] MEDS: Senna/Docusate Sodium 1 Tablet 2 TABLET PO (20:37)
[2022-10-06] MEDS: oxyCODONE 5 MG Tablet PO (20:52)
[2022-10-07] MEDS: Hydrocortisone 2.5% Crm 1 APPLIC RC ×2 (05:45→20:35)
[2022-10-07] MEDS: Levothyroxine 75 MCG Tablet PO (05:45)
[2022-10-07] MEDS: Pantoprazole Sodium 40 MG Tablet PO ×2 (05:45→17:12)
[2022-10-07 06:04] LABS: Absolute Lymphocyte Count 1.57 X10^3/uL (0.83-4.51); Absolute Neutrophil Count 3.8 X10^3/uL (2.0-7.7); Basophil# 0.04 X10^3/uL; Basophil% 0.6 % (0-1); Eosinophil# 0.59 X10^3/uL; Eosinophils% 8.8 % (0-5); Hematocrit 29.8 % (37-47); Hemoglobin 9.1 g/dL (12.0-15.0); Lymphocyte # 1.57 X10^3/ul (0.83-4.51); Lymphocyte % 23.5 % (19-41); Mean Corp Hgb Conc 30.5 g/dL (32-36); Mean Corpuscular Hgb 28.2 pg (27.0-32.0); Mean Corpuscular Volume 92.3 fL (81-99); Mean Platelet Vol. 8.8 fl (6.2-12.0); Monocyte# 0.65 X10^3/uL; Monocyte% 9.7 % (0-10); NRBC Flagged by Analyzer 0 % (0-5); Neutrophil # 3.81 X10^3/uL (2.7-7.7); Neutrophil % 57.1 % (47-70); Platelet Count 422 K/mm3 (150-450); RBC Distribution Width CV 14.7 % (11.6-14.6); RBC Distribution Width SD 49.9 fl (35.1-43.9); Red Blood Count 3.23 M/mm3 (4.2-5.4); White Blood Count 6.7 K/mm3 (4.4-11.0)
[2022-10-07 07:00] LABS: Anion Gap 8 (5-15); BUN 31 mg/dL (7-18); Calcium,Total 8.8 mg/dL (8.5-10.1); Chloride 108 mmol/L (98-107); Creatinine, Serum 1.55 mg/dL (0.55-1.02); EST Glomerular Filtration Rate 34 mL/min (>60); Est Glom Filt Rate - Afr Amer 41 mL/min (>60); Glucose 100 mg/dL (74-106); Potassium 4.3 mmol/L (3.5-5.1); Sodium Level 140 mmol/L (136-145)
[2022-10-07 08:24] VITALS: BP 112/48; PULSE 58; RESP 17; TEMP 36.9; O2SAT 96
--- NOTE | 2022-10-07 08:33 | CASEMGMT ---
Social Work IDT met with patient and dtr via conference call for Team meeting. Discussed patient's progress in PT/OT/ST/SN. Educated to [facility] insurance with [employer] 10/11 and continued stay is not guaranteed with each review. Pt has $300/day copay from days 1-5, after $0 copay. Pt's goal is to return home alone at [facility]. Will ReTeam weekly. SW to continue to follow for DC planning. Shawna Trevino MSW A R COLLECTIONS REP
[2022-10-07 09:54] VITALS: PULSE 70
[2022-10-07] MEDS: Cholecalciferol (VIT D3) 25 MCG TABLET (1,000 UNITS) PO (09:54)
[2022-10-07] MEDS: Metoprolol Tartrate 25 MG Tablet PO ×2 (09:54→20:33)
[2022-10-07] MEDS: APIXABAN 2.5 MG TABLET (WCH) PO ×2 (09:56→20:34)
--- NOTE | 2022-10-07 10:46 | CASEMGMT ---
Social Work Pt agreeable to ask dtr to provide copies of advanced directives. Shawna Trevino, DATABASE MARKETING MANAGER DATABASE MANAGEMENT SPECIALIST
--- NOTE | 2022-10-07 13:50 | NURSING ---
Sabino for Dr. Ragland's office requesting to reschedule appt and if walking boot could be provided if possible. Waiting for return call.
[2022-10-07 14:12] VITALS: BMI 27.8
--- NOTE | 2022-10-07 14:52 | PN_ITS ---
Subjective Subjective Patient seem, examined. Patient seen on Team rounds, her daughter Consuelo was on the phone. Radha has been doing well, her only complaint is to have something to help her sleep. Objective Data Objective Data Vital Signs: Vital Signs Temp Pulse Resp BP Pulse Ox O2 Del Method 98.5 F 70 17 112/48 L 96 Room Air 10/07/22 08:24 10/07/22 09:54 10/07/22 08:24 10/07/22 08:24 10/07/22 08:24 10/07/22 10:00 Oxygen Delivery Method Room Air Weight: 73.6 kg Body Mass Index (BMI) 27.8 Intake & Output: Intake and Output for Last 24 Hours 10/05/22 10/06/22 10/07/22 23:59 23:59 23:59 Intake Total 460 / 460 Output Total 200 / 200 550 / 550 Balance -200 / -200 -90 / -90 Lab / Micro Data Result Diagrams: 10/07/22 05:53 10/07/22 05:53 Labs: Laboratory Results - last 24 hr 10/07/22 05:53: WBC 6.7, RBC 3.23 L, Hgb 9.1 L, Hct 29.8 L, MCV 92.3, MCH 28.2, MCHC 30.5 L, RDW Std Deviation 49.9 H, RDW Coeff of Kristy 14.7 H, Plt Count 422, MPV 8.8, Immature Gran % (Auto) 0.300, Neut % (Auto) 57.1, Lymph % (Auto) 23.5, [place] % (Auto) 9.7, Eos % (Auto) 8.8 H, Baso % (Auto) 0.6, Absolute Neuts (auto) 3.8, Absolute Lymphs (auto) 1.57, Nucleated RBC % 0 10/07/22 05:53: Sodium 140, Potassium 4.3, Chloride 108 H, Carbon Dioxide 24.0, Anion Gap 8, BUN 31 H, Creatinine 1.55 H, Estim Creat Clear Calc 25.00, Est GFR (MDRD) Af Amer 41 L, Est GFR (MDRD) Non-Af 34 L, BUN/Creatinine Ratio 20.0, Glucose 100, Calcium 8.8 Physical Exam Const alert General Appearance: cooperative HEENT normocephalic Eyes PERRL and EOMs intact bilaterally Neck supple, no JVD and no carotid bruits Resp normal respiratory effort, normal air movement and clear to auscultation bilaterally Cardio regular rate and regular rhythm GI normal to inspection, nondistended, normoactive bowel sounds, non-tender and non-distended Extremity normal capillary refill Extremity Narrative: Left short leg splint. General Extremity: Negative for edema Skin no rashes or lesions noted General Skin Exam: no breakdown Psych affect normal Appearance: appropriate Assessment & Plan Assessment/Plan (1) Debility: (2) Bimalleolar fracture of left ankle: (3) Acute right MCA stroke: (4) Atrial fibrillation: (5) Chronic kidney disease, stage 3a: (6) Hypothyroidism: (7) Allergic rhinitis: PLAN: Plan 82 year old female with below past medical history hospitalized for multiple embolic infarcts right MCA territory, complicated by bimalleolar left ankle fracture requiring ORIF 09/28/2022, admitted to for 3 hours daily rehabilitation, strengthening, prior to discharge home alone. * Debility - PT/OT/ST. * Pain - Tylenol 1000mg q6h prn pain (1-5), Oxycodone 5mg q4h prn pain (6-10). * Bowel - senna/colace 2 tablets bid, Dulcolax 10mg pr x 1 prn, MOM 30ml po x 1 prn. * Atrial fibrillation - Metoprolol 25mg bid, Eliquis 2.5mg bid. * Rash - HC 2.5% bid, and bid prn. * Hypothyroidism - Levothyroxine 75mcg daily. * Gastritis - Pantoprazole 40mg bid thru 10/13/2022, then 40mg daily. * Bimalleolar left ankle fracture s/p ORIF - LLE short leg splint, NWB left lower extremity, follow with Dr. Hayden. * Vitamin D deficiency - D3 25mcg daily. * Acute right MCA stroke - no deficits, ST signed off. * Insomnia - Rx Melatonin 10mg qhs. Capacity Capacity Assessment Tool Can the patient make a choice & communicate that choice?: Yes Can the patient understand benefits, risks and alternatives?: Yes Can the patient make a logical, rational choice?: Yes Is the choice the patient makes consistent w/ their values?: Yes Is there an impending, emergent risk to the patient?: No Does the patient have an Advance Directive?: Yes Is there a Surrogate Available?: Yes i.e. HCPOA: Yes i.e. close relative (spouse, child, parent, sibling)?: Yes
[2022-10-07 20:00] VITALS: PULSE 52; RESP 16; O2SAT 98; BMI 27.8
[2022-10-07 20:33] VITALS: BP 117/51; PULSE 52
[2022-10-07] MEDS: MELATONIN 10 MG TABLET PO (20:33)
[2022-10-07] MEDS: Senna/Docusate Sodium 1 Tablet 2 TABLET PO (20:33)
[2022-10-07] MEDS: oxyCODONE 5 MG Tablet PO (20:34)
[2022-10-07 21:32] VITALS: BP 117/51; PULSE 52; RESP 16; TEMP 36.8; O2SAT 98
[2022-10-08] MEDS: Hydrocortisone 2.5% Crm 1 APPLIC RC ×2 (05:47→21:35)
[2022-10-08] MEDS: Pantoprazole Sodium 40 MG Tablet PO ×2 (05:47→16:41)
[2022-10-08] MEDS: Levothyroxine 75 MCG Tablet PO (05:47)
[2022-10-08 05:49] LABS: Hematocrit 28.7 % (37-47); Hemoglobin 8.9 g/dL (12.0-15.0)
[2022-10-08 07:03] VITALS: BP 116/48; PULSE 58; RESP 16; TEMP 36.9; O2SAT 97
[2022-10-08] MEDS: APIXABAN 2.5 MG TABLET (WCH) PO ×2 (08:21→21:21)
[2022-10-08] MEDS: Cholecalciferol (VIT D3) 25 MCG TABLET (1,000 UNITS) PO (08:23)
[2022-10-08 08:33] VITALS: PULSE 59
[2022-10-08] MEDS: Metoprolol Tartrate 25 MG Tablet PO ×2 (08:33→21:22)
[2022-10-08 08:39] VITALS: PULSE 59
[2022-10-08 16:43] VITALS: BMI 27.8
[2022-10-08 19:35] VITALS: BP 105/41; PULSE 56; RESP 16; TEMP 36.8; O2SAT 98
[2022-10-08] MEDS: Senna/Docusate Sodium 1 Tablet 2 TABLET PO (21:21)
[2022-10-08] MEDS: oxyCODONE 5 MG Tablet PO (21:21)
[2022-10-08 21:22] VITALS: BP 105/41; PULSE 56
[2022-10-09] MEDS: Levothyroxine 75 MCG Tablet PO (06:02)
[2022-10-09] MEDS: Pantoprazole Sodium 40 MG Tablet PO ×2 (06:02→16:32)
[2022-10-09] MEDS: Hydrocortisone 2.5% Crm 1 APPLIC RC ×2 (06:08→21:01)
[2022-10-09 06:37] LABS: Hematocrit 29.6 % (37-47); Hemoglobin 9.8 g/dL (12.0-15.0)
[2022-10-09 09:17] VITALS: BP 110/44; PULSE 58; RESP 15; TEMP 37; O2SAT 98
[2022-10-09] MEDS: Cholecalciferol (VIT D3) 25 MCG TABLET (1,000 UNITS) PO (09:23)
[2022-10-09] MEDS: APIXABAN 2.5 MG TABLET (WCH) PO ×2 (09:25→21:00)
[2022-10-09 09:27] VITALS: BP 110/44; PULSE 58
[2022-10-09] MEDS: Metoprolol Tartrate 25 MG Tablet PO ×2 (09:27→21:00)
[2022-10-09 09:31] VITALS: PULSE 58
[2022-10-09 12:45] VITALS: BMI 27.8
[2022-10-09 19:23] VITALS: BP 97/44; PULSE 60; RESP 14; TEMP 36.5; O2SAT 99
[2022-10-09 20:30] VITALS: BP 104/56
[2022-10-09 21:00] VITALS: PULSE 60
[2022-10-09] MEDS: Senna/Docusate Sodium 1 Tablet 2 TABLET PO (21:00)
[2022-10-09] MEDS: MELATONIN 10 MG TABLET PO (21:00)
[2022-10-10 03:24] VITALS: BMI 27.8
[2022-10-10] MEDS: Hydrocortisone 2.5% Crm 1 APPLIC RC ×2 (06:07→21:09)
[2022-10-10] MEDS: Pantoprazole Sodium 40 MG Tablet PO ×2 (06:07→16:17)
[2022-10-10] MEDS: Levothyroxine 75 MCG Tablet PO (06:07)
[2022-10-10 08:00] VITALS: BP 121/47; PULSE 66; RESP 15; TEMP 35.9; O2SAT 98
[2022-10-10 08:18] VITALS: PULSE 60
[2022-10-10] MEDS: APIXABAN 2.5 MG TABLET (WCH) PO ×2 (08:18→21:03)
[2022-10-10] MEDS: Metoprolol Tartrate 25 MG Tablet PO ×2 (08:18→21:03)
[2022-10-10] MEDS: Cholecalciferol (VIT D3) 25 MCG TABLET (1,000 UNITS) PO (08:18)
[2022-10-10 17:00] VITALS: BMI 27.8
[2022-10-10 18:58] VITALS: BP 100/56; PULSE 67; RESP 14; TEMP 36.7; O2SAT 99
[2022-10-10 21:03] VITALS: PULSE 60
[2022-10-10] MEDS: MELATONIN 10 MG TABLET PO (21:03)
[2022-10-10] MEDS: Senna/Docusate Sodium 1 Tablet 2 TABLET PO (21:03)
[2022-10-10] MEDS: Hydrocortisone 2.5% Crm 1 APPLIC TOPICAL (21:05)
[2022-10-10 21:53] VITALS: BMI 27.8
[2022-10-11] MEDS: Levothyroxine 75 MCG Tablet PO (06:07)
[2022-10-11] MEDS: Pantoprazole Sodium 40 MG Tablet PO ×2 (06:08→17:10)
[2022-10-11] MEDS: Hydrocortisone 2.5% Crm 1 APPLIC RC ×2 (06:09→20:42)
[2022-10-11 07:24] VITALS: BP 122/47; PULSE 53; RESP 16; TEMP 36.6; O2SAT 97
[2022-10-11 08:15] VITALS: PULSE 53
[2022-10-11] MEDS: APIXABAN 2.5 MG TABLET (WCH) PO ×2 (08:15→20:41)
[2022-10-11] MEDS: Cholecalciferol (VIT D3) 25 MCG TABLET (1,000 UNITS) PO (08:15)
[2022-10-11] MEDS: Metoprolol Tartrate 25 MG Tablet PO ×2 (08:15→20:41)
--- NOTE | 2022-10-11 11:44 | PN_ITS ---
Subjective Subjective Afebrile VSS-heart rate ranges from 53-66. Blood pressure tends to be a little lower in the evening but the MAP is still above 60. She is on metoprolol tartrate 25 mg p.o. twice daily at 10 AM and 10 PM. Maintaining appropriate oxygen saturation on RA Oral intake is good Discussed with nursing - no problems that need addressed Reviewed the PT/OT/ST notes still requiring max assist with toileting Medication list reviewed. She has only taken 3 doses of oxycodone since admission to rehab and the last dose was on 10/08/2022. All recent lab was reviewed. Hemoglobin is stable at 9.8. She has normochromic normocytic indices. She has stage IIIb chronic renal failure with a stable creatinine at 1.55-1.56. LFTs at admission showed mildly increased transaminases, a normal bilirubin and an increased alkaline phosphatase at 527. TSH this month was normal at 1.16. Dr. Pedroza's H&P was reviewed. Patient presented to the emergency department on 09/23/2022 complaining of left leg numbness and severe headache. 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 She was transferred from [facility] to [facility] and while in the hospital fell and fractured her left ankle. On 09/28 she had a ORIF of left bimalleolar ankle fracture by Dr. Reagan. Radha denies lightheadedness, vertigo, CP, SOB at rest, SOB with exertion, cough, nausea, vomiting, abd pain, diarrhea, constipation, dysuria, calf pain and ankle swelling. She is fixated on seeing Dr. Reagan for an appt this week and an XRAY of the RLE. she has an appt scheduled for the and I had to inform her and her dtr Consuelo that she would not be able to leave rehab and then come back but, we could get an XRAY and Dr. Reagan could review the XRAY and tell us what to do. She tells me that she is going to be placed in a walking boot? She is anxious to get out of the hospital. She would like to have an XRAY done BRANDIE so she can get into a boot and go home. She has a hx of AF and was on Eliquis at the time of the multiple infarcts.....on 2.5 mg BID......then why did she have the infarcts? Should she be on a higher dose? She was not picked up by ST. Objective Data Objective Data Vital Signs: Vital Signs Temp Pulse Resp BP Pulse Ox O2 Del Method 97.9 F 53 L 16 122/47 H 97 Room Air 10/11/22 07:24 10/11/22 08:15 10/11/22 07:24 10/11/22 07:24 10/11/22 07:24 10/11/22 07:24 Oxygen Delivery Method Room Air Weight: 162 lb 4.163 oz Body Mass Index (BMI) 27.8 Intake & Output: Intake and Output for Last 24 Hours 10/09/22 10/10/22 10/11/22 23:59 23:59 23:59 Intake Total 240 / 240 200 / 200 810 / 810 Balance 240 / 240 200 / 200 810 / 810 Lab / Micro Data Result Diagrams: 10/09/22 06:18 10/07/22 05:53 Physical Exam Const alert and no apparent distress Constitutional Narrative: Sitting in the recliner at the bedside. General Appearance: cooperative HEENT Mouth: dry mucous membranes Resp clear to auscultation bilaterally Cardio regular rate, regular rhythm, no murmurs and no gallops GI normal to inspection, nondistended, normoactive bowel sounds, soft to palpation and non-tender GI Narrative: No guarding with palpation. Tells me her bowels are moving fine. Extremity Extremity Narrative: The Left calf is larger than the R but, she denies any calf pain. The distal LLE is in a posterior splint. The toes on the L foot at warm and she has intact sensation. General Extremity: Negative for clubbing or cyanosis Skin General Skin Exam: no breakdown Rashes: no rashes Psych cooperative Psych Narrative: anxious at times. Assessment & Plan Assessment/Plan (1) Debility: (2) Acute right MCA stroke: (3) Bimalleolar fracture of left ankle: (4) Chronic renal failure (CRF), stage 3b: (5) Atrial fibrillation: (6) Hypothyroidism: (7) Allergic rhinitis: (8) Abnormal LFTs (liver function tests): (9) Normochromic normocytic anemia: (10) Dehydration, mild: PLAN: Plan 1. Continue therapy 2. CBC and CMP in the a.m. 3. Hemoccult stool 4. Iron studies in the a.m. 5. Transaminases and alk phos are presumed to be elevated due to Percocet but she was also recently started on a statin. Has never had her liver imaged at this hospital. 6. Mucous membranes are very dry-encouraged increased fluid intake. Charges/Coding Visit Charges Inpatient E&M: 40537 Subs Hosp L2
--- NOTE | 2022-10-11 14:00 | NURSING ---
message left for Coleen at Dr Anders's office regarding pt's follow up appt.
[2022-10-11 15:06] VITALS: BMI 27.8
[2022-10-11 19:40] VITALS: BMI 27.8
[2022-10-11 19:44] VITALS: BP 101/57; PULSE 53; RESP 17; TEMP 36.4; O2SAT 97
[2022-10-11] MEDS: Senna/Docusate Sodium 1 Tablet 2 TABLET PO (20:40)
[2022-10-11] MEDS: MELATONIN 10 MG TABLET PO (20:40)
[2022-10-11 20:41] VITALS: BP 107/51; PULSE 55
[2022-10-12 05:47] LABS: Hematocrit 27.9 % (37-47); Hemoglobin 8.7 g/dL (12.0-15.0); Mean Corp Hgb Conc 31.2 g/dL (32-36); Mean Corpuscular Hgb 28.7 pg (27.0-32.0); Mean Corpuscular Volume 92.1 fL (81-99); Mean Platelet Vol. 9.2 fl (6.2-12.0); Platelet Count 296 K/mm3 (150-450); RBC Distribution Width CV 14.5 % (11.6-14.6); Red Blood Count 3.03 M/mm3 (4.2-5.4); White Blood Count 5.9 K/mm3 (4.4-11.0)
[2022-10-12] MEDS: Levothyroxine 75 MCG Tablet PO ×2 (06:00→06:01)
[2022-10-12] MEDS: Pantoprazole Sodium 40 MG Tablet PO ×2 (06:00→17:38)
[2022-10-12] MEDS: Hydrocortisone 2.5% Crm 1 APPLIC RC ×2 (06:03→21:38)
[2022-10-12 06:16] LABS: ALB/GLOB Ratio 0.7 RATIO (0.9-2.4); AST(SGOT) 38 U/L (15-37); Alanine Aminotransfer ALT/SGPT 42 U/L (13-56); Albumin, Serum 2.6 g/dL (3.2-5.0); Alkaline Phosphatase 320 U/L (45-117); Anion Gap 8 (5-15); BUN 30 mg/dL (7-18); BUN/Creat Ratio 20.3 RATIO (10-20); Calcium,Total 8.6 mg/dL (8.5-10.1); Chloride 109 mmol/L (98-107); Creatinine, Serum 1.48 mg/dL (0.55-1.02); EST Glomerular Filtration Rate 36 mL/min (>60); Est Glom Filt Rate - Afr Amer 44 mL/min (>60); Estimated Creatinine Clearance 26.18 ml/min; Ferritin 52 ng/mL (8-252); Globulin 3.7 g/dL (2.2-4.2); Glucose 102 mg/dL (74-106); Iron 32 ug/dL (50-170); Iron Binding Capacity,Total 386 ug/dL (250-450); PERCENT IRON SATURATION 8.3 % (15.0-55.0); Potassium 4.3 mmol/L (3.5-5.1); Protein, Total 6.3 g/dL (6.4-8.2); Sodium Level 142 mmol/L (136-145)
[2022-10-12 07:13] VITALS: BP 128/57; PULSE 58; RESP 16; TEMP 36.6; O2SAT 98
[2022-10-12 07:44] VITALS: BP 128/57; PULSE 58
[2022-10-12] MEDS: APIXABAN 2.5 MG TABLET (WCH) PO ×2 (07:44→21:37)
[2022-10-12] MEDS: Metoprolol Tartrate 25 MG Tablet PO ×2 (07:44→21:37)
[2022-10-12] MEDS: Cholecalciferol (VIT D3) 25 MCG TABLET (1,000 UNITS) PO (07:44)
--- NOTE | 2022-10-12 10:55 | PN_ITS ---
Subjective Subjective Afebrile VSS Maintaining appropriate oxygen saturation on RA Oral intake is good for food and not so great for fluids. She was encouraged to increase her fluid intake yesterday and also today. Discussed with nursing - no problems that need addressed Reviewed the PT/OT/ST notes Medication list reviewed. All lab was personally reviewed. Hemoglobin is 8.7, down from 9.8 on 10/09/2022. White blood cell count is normal. Platelets are normal. BUN is stable at 30 and the creatinine is 1.48, down from 1.55 on 10/07/2022. Serum iron is low at 32 and the iron saturation is very low at 8.3. Ferritin is 52 which is normal however this is likely falsely elevated secondary to recent fracture/inflammation. The bilirubin and transaminases are normal. Alkaline phosphatase is still elevated at 320 (down from 570 at admission). Could the increase be due to the fracture? or is there something else going on? All paperwork from the previous hospital was reviewed. Last colonoscopy was in 2020 and she had internal hemorrhoids and diverticulosis. She was seen by the GI service at the previous hospital and a right upper quadrant ultrasound was negative and so was the hepatitis panel. A abdomen/pelvis CT was done that showed a complex renal cyst and a bladder diverticulum. She also had a hiatal hernia on CT. Repeat renal ultrasound is recommended in 6 to 12 months. A liver biopsy was recommended by the GI service however the patient refused. She was being evaluated for possible autoimmune disease versus medication induced abnormal LFTs. Alpha-1 antitrypsin was 196 which is normal. Ceruloplasmin was 35 which is also unremarkable. Mitochondrial M2 IgG is still pending at the time the patient was transferred to [facility]. Alkaline phosphatase was as high as 600 at the previous hospital. Emeli denies lightheadedness, vertigo, CP, SOB at rest, SOB with exertion, cough, nausea, vomiting, abd pain, diarrhea, constipation, dysuria, calf pain and ankle swelling. She has some pain in the LLE but, only when she is doing therapy. Objective Data Objective Data Vital Signs: Vital Signs Temp Pulse Resp BP Pulse Ox O2 Del Method 97.9 F 58 L 16 128/57 H 98 Room Air 10/12/22 07:13 10/12/22 07:44 10/12/22 07:13 10/12/22 07:44 10/12/22 07:13 10/12/22 07:13 Oxygen Delivery Method Room Air Weight: 162 lb 4.163 oz Body Mass Index (BMI) 27.8 Intake & Output: Intake and Output for Last 24 Hours 10/10/22 10/11/22 10/12/22 23:59 23:59 23:59 Intake Total 200 / 200 1170 / 1170 Balance 200 / 200 1170 / 1170 Lab / Micro Data Result Diagrams: 10/12/22 05:27 10/12/22 05:27 Labs: Laboratory Results - last 24 hr 10/12/22 05:27: WBC 5.9, RBC 3.03 L, Hgb 8.7 L, Hct 27.9 L, MCV 92.1, MCH 28.7, MCHC 31.2 L, RDW Std Deviation 49.0 H, RDW Coeff of Kristy 14.5, Plt Count 296, MPV 9.2 10/12/22 05:27: Sodium 142, Potassium 4.3, Chloride 109 H, Carbon Dioxide 25.0, Anion Gap 8, BUN 30 H, Creatinine 1.48 H, Estim Creat Clear Calc 26.18, Est GFR (MDRD) Af Amer 44 L, Est GFR (MDRD) Non-Af 36 L, BUN/Creatinine Ratio 20.3 H, Gl ucose 102, Calcium 8.6, Iron 32 L, TIBC 386, Iron Saturation 8.3 L, Ferritin 52, Total Bilirubin 0.40, AST 38 H, ALT 42, Alkaline Phosphatase 320 H, Total Protein 6.3 L, Albumin 2.6 L, Globulin 3.7, Albumin/Globulin Ratio 0.7 L Physical Exam Const alert and no apparent distress Constitutional Narrative: Sitting in the recliner at the bedside. General Appearance: cooperative Resp clear to auscultation bilaterally Cardio regular rate, regular rhythm, no murmurs and no gallops GI normal to inspection, nondistended, normoactive bowel sounds, soft to palpation and non-tender GI Narrative: No guarding with palpation. Tells me her bowels are moving fine. Extremity Extremity Narrative: The Left calf is larger than the R but, she denies any calf pain. The distal LLE is in a posterior splint. The toes on the L foot at warm and she has intact sensation. General Extremity: Negative for clubbing or cyanosis Skin General Skin Exam: no breakdown Rashes: no rashes Psych cooperative Psych Narrative: anxious at times. Assessment & Plan Assessment/Plan (1) Debility: (2) Acute right MCA stroke: (3) Bimalleolar fracture of left ankle: (4) Chronic renal failure (CRF), stage 3b: (5) Atrial fibrillation: (6) Hypothyroidism: (7) Allergic rhinitis: (8) Abnormal LFTs (liver function tests): (9) Normochromic normocytic anemia: (10) Dehydration, mild: PLAN: Plan 1. Test dose of 100 mg of iron sucrose today and if she tolerates we will give an additional 3 doses of 200 mg. 2. Check a Hemoccult stool 3. Continue therapy 4. I had a discussion with Emeli and told her that she will need to follow up with GI for the elevated AP - autoimmune vs drug induced liver injury. She lives in [place] and is agreeable to following up with Dr. Ro post CT. She will also need a renal US in 6 to 12 months to follow-up on the complex renal cyst. She tells me that she sees a urologist for elevated creat? 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 5. A VM was left with Dr. Reagan's office yesterday regarding the XRAY to be done and if she can be placed in a boot and if she will be wt bearing with the boot and if she is to get a boot he will have to order. No call back yet today. Charges/Coding Visit Charges Inpatient E&M: 22617 Subs Hosp L2
[2022-10-12] MEDS: 0.9% Saline Lock 10 ML Syringe IV (15:01)
[2022-10-12] MEDS: Sodium Ferric Gluconat 125 MG in 0.9% Normal Saline 100 ML 110 MG IV (15:02)
[2022-10-12 15:28] VITALS: BMI 27.8
[2022-10-12 19:32] VITALS: BP 105/50; PULSE 52; RESP 12; TEMP 37; O2SAT 97
[2022-10-12 21:37] VITALS: BP 110/49; PULSE 57
[2022-10-12] MEDS: Senna/Docusate Sodium 1 Tablet 2 TABLET PO (21:37)
[2022-10-12] MEDS: MELATONIN 10 MG TABLET PO (21:37)
[2022-10-12 22:00] VITALS: RESP 16; O2SAT 97
--- NOTE | 2022-10-13 01:21 | NURSING ---
During HS medpass Pt had decreased BP and heartrate . RN aware
[2022-10-13 01:39] VITALS: BMI 27.8
--- NOTE | 2022-10-13 02:36 | NURSING ---
Reviewed and agree with [employer] INST[employer] documentation.
[2022-10-13] MEDS: Hydrocortisone 2.5% Crm 1 APPLIC RC ×2 (04:56→21:10)
[2022-10-13] MEDS: Pantoprazole Sodium 40 MG Tablet PO (04:57)
[2022-10-13] MEDS: 0.9% Saline Lock 10 ML Syringe IV ×2 (05:10→18:08)
[2022-10-13 06:00] VITALS: BMI 27.7
[2022-10-13 07:33] VITALS: BP 140/52; PULSE 60; RESP 16; TEMP 36.2; O2SAT 97
--- NOTE | 2022-10-13 09:00 | NURSING ---
Addendum entered by Malathi Field 10/13/22 16:22: received call form Coleen @ Dr Ragland's office at 1623, she just sent a page out to the doctor and will get back to us. Addendum entered by Malathi Field 10/13/22 14:10: Left 3rd massage for Dr king's nurse relating to pt's f/u appt and inquired about the need for xrays Original Note: left message for Dr Gordon's nurse relating to pt's f/u appt. inquired about the need for X-rays to be completed while pt is in rehab.
[2022-10-13] MEDS: APIXABAN 2.5 MG TABLET (WCH) PO ×2 (09:33→21:09)
[2022-10-13 09:34] VITALS: PULSE 62
[2022-10-13] MEDS: Cholecalciferol (VIT D3) 25 MCG TABLET (1,000 UNITS) PO (09:34)
[2022-10-13] MEDS: Metoprolol Tartrate 25 MG Tablet PO ×2 (09:34→21:09)
[2022-10-13 15:14] VITALS: BMI 27.7
[2022-10-13 21:00] VITALS: BP 108/45; PULSE 57; RESP 18; TEMP 36.6; O2SAT 99; BMI 27.7
[2022-10-13] MEDS: MELATONIN 10 MG TABLET PO (21:08)
[2022-10-13] MEDS: Senna/Docusate Sodium 1 Tablet 2 TABLET PO (21:08)
[2022-10-13 21:09] VITALS: BP 108/45; PULSE 57
[2022-10-14] MEDS: Pantoprazole Sodium 40 MG Tablet PO ×2 (06:34→08:59)
[2022-10-14] MEDS: Levothyroxine 75 MCG Tablet PO (06:34)
[2022-10-14] MEDS: Hydrocortisone 2.5% Crm 1 APPLIC TOPICAL (06:34)
[2022-10-14 08:26] VITALS: BP 112/53; PULSE 55; RESP 16; TEMP 36.1; O2SAT 98
[2022-10-14 08:59] VITALS: PULSE 112
[2022-10-14] MEDS: Cholecalciferol (VIT D3) 25 MCG TABLET (1,000 UNITS) PO (08:59)
[2022-10-14] MEDS: Metoprolol Tartrate 25 MG Tablet PO ×2 (08:59→22:13)
[2022-10-14] MEDS: APIXABAN 2.5 MG TABLET (WCH) PO ×2 (08:59→22:13)
[2022-10-14] MEDS: 0.9% Saline Lock 10 ML Syringe IV (10:33)
--- NOTE | 2022-10-14 13:11 | CASEMGMT ---
Addendum entered by Shawna Trevino 10/14/22 16:45: SW returned to pt's room to assist with DC planning and answered pt's questions. SW spoke with pt an extended period of time. Pt remained persistent on getting answers from Dr. Holman on the boot, f/u appt, and WBS. Pt expressed concern with having ortho follow up if Dr Logan does not return calls from nursing staff, or pt, especially after pt is discharged. SW educated that is outside of this worker's scope and deferred to Dr. Hinkle for follow up and resolution. SW grounded pt to focus on discharge planning options. Pt took extensive notes from the information provided by this worker on options. SW educated and provide lists of assisted living facilities - cost, ELOS, services available, SNFs - cost, ELOS, services available, skilled and nonskilled HHC - cost and services available. Lists were printed from [employer] including quality and resource data. SW educated pt that this worker will coordinate skilled services for DC and pt would coordinate nonskilled HHC if pt chose to DC home. After all questions were answered, pt requested this worker follow up with Dr. Hinkle on ortho appt. KOURTNEY spoke with Dr. Hinkle whom offered to consult [facility] but cautioned most Drs do not see pt's of a different surgeon, and nursing will continue to attempt to contact Dr. Conte. KOURTNEY updated pt with above statement. -- While this worker was still present on RU unit, Dr. Holman's office returned the phone call and nursing asked this worker to speak with the office. After speaking with the office, it was concluded that if pt gets discharged next week, an appt has been scheduled to see Dr. Conte in the office on 10/21. At which time, Dr. Logan will assess leg for wounds, remove the sutures, then determine the appropriateness for a walking boot. The office will ask Dr. Logan in the meantime if [facility] can complete imaging and send to Dr. Logan prior to next appt for further orders on WBS/healing ,etc. KOURTNEY updated IDT on above. KOURTNEY revisited pt at bedside with above information and pt phoned dtr for this worker to provide the information from Dr. Conte's office as well. KOURTNEY reinforced that the pt still needs to decide on a discharge plan. SW offered for home and facility be planned for concurrently, if pt cannot decide. Pt and dtr expressed understanding and will notify this worker with decision. SW will continue to follow for DC planning. Original Note: Social Work IDT met with patient and dtr via conference call for Team meeting. Discussed patient's progress in PT/OT/SN. Educated to [facility] insurance with NRD 10/19 and continued stay is not guaranteed with each review. Therapy recommending ramp to enter/exit pt's home. Ortho has not returned nursing phone calls for follow up on boot and recommendations for recovery. SW inquired about DC plans. PT expressed she is not comfortable going home alone or to dtr's house with steps and not managing her toileting/showers independently. Pt unsure about AL or SNF. SW offered to return after Team meeting to further discuss. Shawna Trevino, HOME SPECIALIST PALLET REPAIRER
--- NOTE | 2022-10-14 14:24 | NURSING ---
Sabino again for Dr. Holman's office requesting if xrays can be completed here and if pt is allowed to receive walking boot.
[2022-10-14 14:40] VITALS: BMI 27.7
--- NOTE | 2022-10-14 15:25 | PN_ITS ---
Subjective Subjective Emeli was seen on team rounds today. Her dtr Consuelo participated by phone. Afebrile VSS-blood pressure is well controlled. Her heart rate is generally in the 50s and low 60s however this morning it jumped up to 112. Maintaining appropriate oxygen saturation on RA Oral intake is good Discussed with nursing - no problems that need addressed Reviewed the PT/OT/ST notes Medication list reviewed. Emeli denies lightheadedness, vertigo, CP, SOB at rest, SOB with exertion, cough, nausea, vomiting, abd pain, diarrhea, constipation, dysuria, calf pain and ankle swelling. She has pain in the left distal leg only during therapy and when she elevates her leg afterwards she has no pain. She is sleeping well and eating well. She is making good progress with therapy but, she does not feel safe in the BR and may be wanting to go to SNF for additional therapy prior to going home with her dtr. She is perseverating on getting the posterior splint off and getting into a boot. We have been calling Dr. Ragland's office and leaving 's for the past week and finally got a call back yesterday and they said they would let the doctor know and get back to us........still have not gotten back to us about XRAY and possible transition to a boot. Pt would like to change doctors and follow up in [place]. Objective Data Objective Data Vital Signs: Vital Signs Temp Pulse Resp BP Pulse Ox O2 Del Method 97.0 F L 112 H 16 112/53 L 98 Room Air 10/14/22 08:26 10/14/22 08:59 10/14/22 08:26 10/14/22 08:26 10/14/22 08:26 10/14/22 08:26 Oxygen Delivery Method Room Air Weight: 161 lb 9.581 oz Body Mass Index (BMI) 27.7 Intake & Output: Intake and Output for Last 24 Hours 10/12/22 10/13/22 10/14/22 23:59 23:59 23:59 Intake Total 135 / 135 270 / 270 Balance 135 / 135 270 / 270 Lab / Micro Data Result Diagrams: 10/12/22 05:27 10/12/22 05:27 Micro: Microbiology 10/13/22 04:55 Stool Stool Occult Blood (ALEXA) - Final Occult Blood Positive Physical Exam Const alert and no apparent distress Constitutional Narrative: Sitting in the recliner at the bedside. General Appearance: cooperative Resp clear to auscultation bilaterally Effort and Inspection: Negative for tachypneic or labored Cardio regular rate, regular rhythm, no murmurs and no gallops Cardio Narrative: No ectopy GI normal to inspection, nondistended, normoactive bowel sounds, soft to palpation and non-tender GI Narrative: No guarding with palpation. Tells me her bowels are moving fine. Extremity General Extremity: Negative for clubbing or cyanosis Skin General Skin Exam: no breakdown Rashes: no rashes Psych cooperative Psych Narrative: anxious at times. Assessment & Plan Assessment/Plan (1) Debility: (2) Acute right MCA stroke: PLAN: Actually multiple strokes in the distribution of the R MCA - While on Eliquis 2.5 mg BID. Why would she have embolic strokes while on Eliquis.......could the endothelium in the R MCA at the trifurcation be friable? No intervention was done at [facility]. There was no obstruction to flow. (3) Bimalleolar fracture of left ankle: (4) Chronic renal failure (CRF), stage 3b: (5) Atrial fibrillation: (6) Hypothyroidism: (7) Allergic rhinitis: (8) Abnormal LFTs (liver function tests): (9) Normochromic normocytic anemia: (10) Dehydration, mild: PLAN: Plan 1. Continue therapy. 2. Asked Dr. Thomas if he would be willing to accept this patient for follow- up with him for left tibia/fib fracture and ORIF 3. Creat clearance is only 25 (creat>1.5) and she is 82 YO so 2.5 mg BID is an appropriate dose of Eliquis so why did she have embolic CVA's? 4. Find out which neurologist saw her at [facility] and ask if the dose should be increased or she should be transitioned to Warfarin, etc? 5. Continue IV iron supplementation. Stool is hem +. Continue Protonix. She denies abdominal pain, nausea, vomiting, diarrhea and denies a history of peptic ulcer disease. She does have hemorrhoids and diverticulosis. Charges/Coding Visit Charges Inpatient E&M: 62537 Subs Hosp L2
--- NOTE | 2022-10-14 16:17 | NURSING ---
Dr Holman's office returned call to say they are still waiting for a response if xray's can be completed here. Also the doctor's office stated that he has to see pt in person to assess the leg and remove sutures before he will allow placement of a boot.New appt now scheduled for 10/21/22 @ [address] Holman's office
[2022-10-14 22:13] VITALS: PULSE 63
[2022-10-14] MEDS: Senna/Docusate Sodium 1 Tablet 2 TABLET PO (22:13)
[2022-10-14] MEDS: Hydrocortisone 2.5% Crm 1 APPLIC RC (22:14)
[2022-10-14] MEDS: MELATONIN 10 MG TABLET PO (22:14)
[2022-10-14 22:30] VITALS: BP 133/57; PULSE 63; RESP 16; TEMP 37; O2SAT 95; BMI 27.7
[2022-10-15] MEDS: Levothyroxine 75 MCG Tablet PO (06:38)
[2022-10-15] MEDS: Hydrocortisone 2.5% Crm 1 APPLIC RC ×2 (06:38→21:49)
[2022-10-15 08:05] VITALS: BP 129/59; PULSE 56; RESP 18; TEMP 36.3; O2SAT 93
--- NOTE | 2022-10-15 10:02 | PCM.PN.BLA ---
Progress Note Afebrile VSS Maintaining appropriate oxygen saturation on RA Oral intake is good Discussed with nursing - no problems that need addressed Reviewed the PT/OT/ST notes Medication list reviewed. No complaints today. Alert and oriented X 3 Sitting in the recliner at the bedside in NAD Lungs - CTA HRRR, no gallop Abd is soft, ND, NT and she does not guard with palpation no edema RLE Intact sensation to the R foot and the foot is warm Impression 1. debility due to stroke 2. R MCA embolic strokes 3. Hx of recent tib/fib fx with ORIF by Dr. Reagan at [facility] I discussed with Emeli whether she wanted to follow up with Dr. Thomas since he agreed to see her or if she wanted to follow up with Dr. Reagan since the office finally called back yesterday and said Dr. Reagan would have to see her before she could be put in a boot. She elected to follow up with Dr. Thomas. A consult was put in for Dr. Thomas and she will be seen today. Continue therapy Visit Charges Inpatient E&M: 58515 Subs Hosp L1
--- NOTE | 2022-10-15 10:33 | CONS.ORTHO ---
HPI Consult Data Date of Consult: 10/15/22 HPI Narrative HPI Narrative: NAOMI HARRISON, is a 82 F who is being consulted on today status post left ORIF for a bimalleolar ankle fracture. DOS: 09/28/2022. Patient had surgery at [facility] by Dr. Reagan. She was transferred to the rehab unit at [facility] on 10/05/2022. Attempts have been made to reach the surgeon for follow-up and there was no response. Therefore, [facility], specifically Dr. Thomas was consulted to follow-up with the patient postoperatively. The patient states that she is doing well overall. She is not currently taking anything for pain. States she had elevated liver enzymes and so is not currently taking any pain medications. Patient states that she has been in the splint since the operation. She denies any calf pain, numbness or tingling, chest pain, shortness of breath, nausea, vomiting, fevers or chills. The patient is participating in physical therapy, occupational therapy and speech therapy. She is currently nonweightbearing through her left lower extremity. [facility] Medical History (Updated 10/11/22 @ 15:[address] Naomi Hinkle, ) Atrial fibrillation Chronic renal failure (CRF), stage 3b History of right MCA stroke Hypothyroidism Home Medications biotin 1,000 mcg chewable tablet 1,000 mcg PO DAILY Check with primary doctor 11/11/21 [History Last Taken Unknown] levothyroxine 75 mcg tablet 75 mcg PO DAILY hypothyroid 11/11/21 [History Last Taken Unknown] apixaban 2.5 mg tablet (Eliquis) 2.5 mg PO BID A-Fib 09/23/22 [History Last Taken Unknown] metoprolol tartrate 25 mg tablet 25 mg PO BID BP/HR 09/23/22 [History Last Taken Unknown] ergocalciferol (vitamin D2) 1,000 unit capsule 1,000 unit PO DAILY supplement 10/05/22 [History Last Taken Unknown] hydrocortisone 2.5 % rectal cream with applicator 1 ea MT 0600,2200 hemorrhoids 10/05/22 [History Last Taken Unknown] oxycodone 5 mg capsule 5 mg PO Q6H PRN Pain 1-10 10/05/22 [History Last Taken Unknown] pantoprazole 40 mg tablet,delayed release 40 mg PO 0600,1600 Check with primary doctor 10/05/22 [History Last Taken 10/05/22 06:00] pantoprazole 40 mg tablet,delayed release 40 mg PO DAILY Check with primary doctor 10/05/22 [History Last Taken Unknown] propranolol 10 mg tablet 10 mg PO BID PRN elevated BP/HR 10/05/22 [History Last Taken Unknown] triamcinolone acetonide 0.025 % topical cream 1 applic topical BID PRN itchy 10/05/22 [History Last Taken Unknown] Allergy/AdvReac Type Severity Reaction Status Date / Time nitrofurantoin Allergy Hives Verified 09/23/22 09:54 [From Macrodantin] benzonatate AdvReac Other Verified 09/23/22 09:54 [From Tessalon Perles] Family History (Updated 10/05/22 @ 21:[address] Ramin Pedroza MD) Father CAD (coronary artery disease) Diabetes Brother Multiple sclerosis Brother ALS (amyotrophic lateral sclerosis) Grandfather CAD (coronary artery disease) Surgical History (Updated 10/15/22 @ 13:41 by SHELLY Santana) History of blepharoplasty History of eye surgery History of hernia surgery History of mandibular surgery S/P skin biopsy Social History (Updated 10/05/22 @ 21:[address] Ramin Pedroza MD) household members: none Smoking Status: Former smoker alcohol intake: current alcohol intake frequency: 0-2 drinks per day Alcohol type: wine details: 2 glasses of wine every 2 weeks. substance use type: does not use ROS Constitutional Constitutional: Denies chills or fever(s) Respiratory/Chest Respiratory/Chest: Denies shortness of breath at rest Gastrointestinal Gastrointestinal: Denies nausea or vomiting Musculoskeletal Musculoskeletal: Reports abnormal gait, joint stiffness and limited range of motion; Denies extremity pain, numbness, radiating pain into limb or tingling Integumentary Integumentary: Denies rash Neurologic Neurologic: Denies headache(s) Vital Signs Vital Signs Vital Signs: 10/14/22 22:13 10/14/22 22:30 10/14/22 22:30 Temperature 98.6 F Temperature Source Temporal Pulse Rate 63 63 Pulse Strength Normal (2+) Respiratory Rate 16 Respiratory Effort Respiratory Depth Respiratory Pattern Blood Pressure 133/57 H Blood Pressure Mean 82 Blood Pressure Source Monitor Blood Pressure Position Blood Pressure Location Pulse Ox 95 Oxygen Delivery Method Room Air 10/14/22 22:30 10/15/22 08:05 Temperature 97.4 F L Temperature Source Oral Pulse Rate 63 56 L Pulse Strength Respiratory Rate 16 18 Respiratory Effort Normal Non-Labored Respiratory Depth Normal Respiratory Pattern Normal Blood Pressure 129/59 H Blood Pressure Mean 82 Blood Pressure Source Monitor Blood Pressure Position Semi-Fowlers Blood Pressure Location Left Arm Pulse Ox 95 93 Oxygen Delivery Method Room Air Room Air Weight Weight: 161 lb 9.581 oz Body Mass Index (BMI) 27.7 Physical Exam Narrative Upon inspection of the left lower extremity she is in a fabricated splint. Upon removal of the splint there is good approximation of the incision sites without any surrounding erythema, discharge, warmth or other signs of infection. She has very minimal tenderness palpation around the incision sites. Sutures were removed. Patient has intact sensation throughout the left lower extremity. Soft compartments. Negative Homans. Palpable pedal pulse. Normal capillary refill. Very mild swelling of the left lower extremity. She is very apprehensive to perform plantarflexion or dorsiflexion of the ankle but after given a few minutes she can move a few degrees in each direction. She is able to wiggle her toes. Const alert, oriented x3 and no apparent distress General Appearance: cooperative Lab / Micro Data Result Diagrams: 10/12/22 05:27 10/12/22 05:27 Assessment & Plan Assessment/Plan (1) Bimalleolar fracture of left ankle: (2) Status post open reduction with internal fixation (ORIF) of fracture of ankle: PLAN: Plan Patient was seen today status post ORIF of a left ankle bimalleolar fracture, DOS: 09/28/2022. No operative report was available to view. Ordered left tibia and fibula x-rays. Reviewed these and there are no acute concerns. She was removed from her splint. Sutures were removed today and the incision sites are healing well without any signs of infection. She was placed into a tall walking boot. She should remove this for gentle AROM 3-5 times per day, to ice and elevate and for hygiene. Otherwise, she should be in the walking boot. She has been NWB will progress to TTWB for the next 4 weeks. She should continue with PT/OT. She should work on AROM daily and this was demonstrated to the patient. Her incisions sites should be kept clean and dry. The incision sites should be cleansed daily with warm water and antibacterial soap and should be pat dry. She should not submerge in any water for 10-14 days - until the incision sites are completely healed. She should continue to elevate and ice as needed for swelling. She should notify the staff or our office if she develops calf pain, discussed blood clot/DVT risk. She is currently taking Eliquis 2.5mg BID. She is not currently taking anything for pain. She should follow up with our office in 4 weeks. If she is still in rehab she can be seen in the hospital. If she is home she should come into the office. In 4 weeks will order 3 views of the left ankle. The patient's questions were answered. She is in agreement with the plan. The case and plan have been discussed and reviewed with Dr. Thomas and he is in agreement with the plan. Charges/Coding Visit Charges Office Visits / Consults: 37259 IP Consult L3
[2022-10-15] MEDS: APIXABAN 2.5 MG TABLET (WCH) PO ×2 (10:56→21:36)
[2022-10-15] MEDS: 0.9% Saline Lock 10 ML Syringe IV ×3 (10:58→21:52)
[2022-10-15] MEDS: Pantoprazole Sodium 40 MG Tablet PO (10:59)
[2022-10-15 11:00] VITALS: PULSE 59
[2022-10-15] MEDS: Metoprolol Tartrate 25 MG Tablet PO ×2 (11:00→21:48)
[2022-10-15] MEDS: Cholecalciferol (VIT D3) 25 MCG TABLET (1,000 UNITS) PO (11:01)
--- NOTE | 2022-10-15 11:10 | RAD_ITS ---
HISTORY: f/u after ORIF. TECHNIQUE: XR Tibia/Fibula 2 Views. COMPARISON: None. FINDINGS: BONES : Cortical plate and screw fixation of nondisplaced distal fibular fracture. Small fragment noted at the lateral malleolus. Screw fixation of a nondisplaced fracture of the medial malleolus. JOINTS: No dislocation. Mild degenerative osteophytes of the knee. SOFT TISSUES: Moderate soft tissue swelling of the ankle. RAD/Tibia & Fibula 2 Views IMPRESSION: Satisfactory alignment of the left ankle status post ORIF bimalleolar fractures. Soft tissue swelling. Electronically Signed: Galilea Rojas MD at 15:09 EDT ,
[2022-10-15 15:26] VITALS: BMI 27.7
[2022-10-15 19:42] VITALS: BP 103/46; PULSE 54; RESP 14; TEMP 36.8; O2SAT 98
[2022-10-15] MEDS: MELATONIN 10 MG TABLET PO (21:37)
[2022-10-15] MEDS: Senna/Docusate Sodium 1 Tablet 2 TABLET PO (21:38)
[2022-10-15 21:48] VITALS: BP 110/47; PULSE 56
[2022-10-15 22:00] VITALS: RESP 16; O2SAT 97
[2022-10-16] MEDS: Levothyroxine 75 MCG Tablet PO (06:19)
[2022-10-16 08:14] VITALS: BP 108/46; PULSE 53; RESP 16; TEMP 35.9; O2SAT 99
[2022-10-16 08:16] VITALS: PULSE 53
[2022-10-16] MEDS: Metoprolol Tartrate 25 MG Tablet PO ×2 (08:16→20:32)
[2022-10-16] MEDS: APIXABAN 2.5 MG TABLET (WCH) PO ×2 (08:16→20:33)
[2022-10-16] MEDS: Pantoprazole Sodium 40 MG Tablet PO (08:18)
[2022-10-16] MEDS: Cholecalciferol (VIT D3) 25 MCG TABLET (1,000 UNITS) PO (08:18)
[2022-10-16 17:00] VITALS: BMI 27.7
[2022-10-16 20:30] VITALS: BP 104/60; PULSE 63; RESP 16; TEMP 37.1; O2SAT 97; BMI 27.7
[2022-10-16 20:32] VITALS: BP 104/60; PULSE 63
[2022-10-16] MEDS: Senna/Docusate Sodium 1 Tablet 2 TABLET PO (20:33)
[2022-10-16] MEDS: MELATONIN 10 MG TABLET PO (22:00)
[2022-10-17] MEDS: Levothyroxine 75 MCG Tablet PO (06:09)
[2022-10-17] MEDS: 0.9% Saline Lock 10 ML Syringe IV ×4 (06:29→19:49)
[2022-10-17 07:13] VITALS: BP 126/57; PULSE 59; RESP 15; TEMP 36.6; O2SAT 99
[2022-10-17] MEDS: Cholecalciferol (VIT D3) 25 MCG TABLET (1,000 UNITS) PO (08:47)
[2022-10-17 08:48] VITALS: PULSE 64
[2022-10-17] MEDS: APIXABAN 2.5 MG TABLET (WCH) PO ×2 (08:48→21:01)
[2022-10-17] MEDS: Pantoprazole Sodium 40 MG Tablet PO (08:48)
[2022-10-17] MEDS: Metoprolol Tartrate 25 MG Tablet PO ×2 (08:48→20:58)
[2022-10-17 12:49] VITALS: BMI 27.7
[2022-10-17 20:30] VITALS: PULSE 57; RESP 18; BMI 27.7
[2022-10-17] MEDS: Senna/Docusate Sodium 1 Tablet 2 TABLET PO (20:57)
[2022-10-17 20:58] VITALS: BP 125/71; PULSE 57
[2022-10-17] MEDS: MELATONIN 10 MG TABLET PO (20:58)
[2022-10-17 22:00] VITALS: BP 125/71; PULSE 57; RESP 18; TEMP 36.6; O2SAT 97
--- NOTE | 2022-10-18 03:22 | NURSING ---
Reviewed and agree with Anthony FORRESTER, documentation and assessment charting.
[2022-10-18] MEDS: Levothyroxine 75 MCG Tablet PO (07:03)
[2022-10-18] MEDS: APIXABAN 2.5 MG TABLET (WCH) PO ×2 (07:51→20:17)
[2022-10-18 07:54] VITALS: BP 118/60; PULSE 63
[2022-10-18] MEDS: Metoprolol Tartrate 25 MG Tablet PO ×2 (07:54→20:17)
[2022-10-18] MEDS: Cholecalciferol (VIT D3) 25 MCG TABLET (1,000 UNITS) PO (07:55)
[2022-10-18] MEDS: Pantoprazole Sodium 40 MG Tablet PO (07:55)
[2022-10-18 07:57] VITALS: BP 118/60; PULSE 63; RESP 15; TEMP 36.4; O2SAT 99
--- NOTE | 2022-10-18 09:58 | PN_ITS ---
Subjective Subjective Afebrile VSS Maintaining appropriate oxygen saturation on RA Oral intake is good Discussed with nursing - no problems that need addressed Reviewed the PT/OT/ST notes Medication list reviewed. Emeli is requesting that the salt restriction be removed from her diet. She denies pain in the left ankle. She did have some heel pain last night and there was some irritation from the boot. Nursing applied a Mepilex and some padding to the left heel. She denies shortness of breath, lightheadedness, chest pain, cough, dysuria, nausea/vomiting/abdominal pain and calf pain. Having some difficulty sleeping. We discussed starting something to help her sleep in addition to the Melatonin and she is agreeable to Trazodone 50 mg at HS PRN. Objective Data Objective Data Vital Signs: Vital Signs Temp Pulse Resp BP Pulse Ox O2 Del Method 97.6 F L 63 15 118/60 99 Room Air 10/18/22 07:57 10/18/22 07:57 10/18/22 07:57 10/18/22 07:57 10/18/22 07:57 10/18/22 07:57 Oxygen Delivery Method Room Air Weight: 161 lb 9.581 oz Body Mass Index (BMI) 27.7 Intake & Output: Intake and Output for Last 24 Hours 10/16/22 10/17/22 10/18/22 23:59 23:59 23:59 Intake Total 390 / 390 270 / 270 100 / 100 Balance 390 / 390 270 / 270 100 / 100 Lab / Micro Data Result Diagrams: 10/12/22 05:27 10/12/22 05:27 Micro: Microbiology 10/13/22 04:55 Stool Stool Occult Blood (ALEXA) - Final Occult Blood Positive Physical Exam Const alert and no apparent distress General Appearance: cooperative HEENT moist oral mucous membranes Resp normal respiratory effort, no use of accessory muscles and clear to auscultation bilaterally Effort and Inspection: Negative for tachypneic or labored Cardio regular rate, regular rhythm and no gallops GI normal to inspection, nondistended, normoactive bowel sounds, non-tender and non -distended GI Narrative: no guarding with palpation Extremity Negative for no calf tenderness Extremity Narrative: Good cap refill in the R foot. The incisions are intact with not erythema and no purulent DC. There is mild swelling of the Left ankle. The toes are warm and there is intact sensation. No calf pain. General Extremity: edema Skin General Skin Exam: no breakdown Rashes: no rashes Psych affect normal Assessment & Plan Assessment/Plan (1) Debility: (2) Acute right MCA stroke: (3) Bimalleolar fracture of left ankle: (4) Chronic renal failure (CRF), stage 3b: (5) Atrial fibrillation: (6) Hypothyroidism: (7) Allergic rhinitis: (8) Abnormal LFTs (liver function tests): (9) Normochromic normocytic anemia: (10) Dehydration, mild: PLAN: Plan 1. Continue therapy 2. CBC, BMP and phosphorus in the a.m. 3. continue with TTWB. She will follow up with Dr. Thomas following DC 4. Discontinue the heart healthy diet and start a regular diet which hopefully she will find more palatable 5. Add trazodone 50 mg nightly as needed insomnia. Charges/Coding Visit Charges Inpatient E&M: 34907 Subs Hosp L2
[2022-10-18 16:27] VITALS: BMI 27.7
[2022-10-18] MEDS: 0.9% Saline Lock 10 ML Syringe IV (18:08)
[2022-10-18 19:26] VITALS: BP 118/74; PULSE 58; RESP 17; TEMP 36.1; O2SAT 97
[2022-10-18 20:17] VITALS: BP 118/74; PULSE 58
[2022-10-18] MEDS: MELATONIN 10 MG TABLET PO (20:18)
[2022-10-18] MEDS: Senna/Docusate Sodium 1 Tablet 2 TABLET PO (20:18)
[2022-10-18 20:30] VITALS: BMI 27.7
[2022-10-19 05:49] LABS: Hematocrit 29.4 % (37-47); Hemoglobin 9.2 g/dL (12.0-15.0); Mean Corp Hgb Conc 31.3 g/dL (32-36); Mean Corpuscular Hgb 28.9 pg (27.0-32.0); Mean Corpuscular Volume 92.5 fL (81-99); Mean Platelet Vol. 10.1 fl (6.2-12.0); Platelet Count 183 K/mm3 (150-450); RBC Distribution Width CV 15.2 % (11.6-14.6); RBC Distribution Width SD 50.3 fl (35.1-43.9); Red Blood Count 3.18 M/mm3 (4.2-5.4); White Blood Count 5.7 K/mm3 (4.4-11.0)
[2022-10-19 06:15] LABS: Anion Gap 7 (5-15); BUN 25 mg/dL (7-18); BUN/Creat Ratio 17.6 RATIO (10-20); Calcium,Total 8.7 mg/dL (8.5-10.1); Chloride 109 mmol/L (98-107); Creatinine, Serum 1.42 mg/dL (0.55-1.02); EST Glomerular Filtration Rate 38 mL/min (>60); Est Glom Filt Rate - Afr Amer 46 mL/min (>60); Estimated Creatinine Clearance 27.29 ml/min; Glucose 96 mg/dL (74-106); Phosphorus 3.1 mg/dL (2.5-4.9); Potassium 4.1 mmol/L (3.5-5.1); Sodium Level 142 mmol/L (136-145)
[2022-10-19] MEDS: Levothyroxine 75 MCG Tablet PO (06:27)
[2022-10-19 07:32] VITALS: BP 115/55; PULSE 59; RESP 14; TEMP 36.6; O2SAT 96
[2022-10-19 08:45] VITALS: PULSE 64
[2022-10-19] MEDS: Senna/Docusate Sodium 1 Tablet 2 TABLET PO ×2 (08:45→20:40)
[2022-10-19] MEDS: Pantoprazole Sodium 40 MG Tablet PO (08:45)
[2022-10-19] MEDS: Metoprolol Tartrate 25 MG Tablet PO ×2 (08:45→20:41)
[2022-10-19] MEDS: APIXABAN 2.5 MG TABLET (WCH) PO ×2 (08:45→20:41)
[2022-10-19] MEDS: Cholecalciferol (VIT D3) 25 MCG TABLET (1,000 UNITS) PO (08:45)
[2022-10-19 15:55] VITALS: BMI 27.7
[2022-10-19 19:49] VITALS: BP 108/55; PULSE 55; RESP 18; TEMP 36.7; O2SAT 97
[2022-10-19 20:41] VITALS: PULSE 55
[2022-10-19] MEDS: MELATONIN 10 MG TABLET PO (20:41)
[2022-10-20 00:48] VITALS: BMI 27.7
[2022-10-20] MEDS: Levothyroxine 75 MCG Tablet PO (05:17)
[2022-10-20 06:00] VITALS: BMI 27.5
[2022-10-20] MEDS: Pantoprazole Sodium 40 MG Tablet PO (09:03)
[2022-10-20] MEDS: Cholecalciferol (VIT D3) 25 MCG TABLET (1,000 UNITS) PO (09:03)
[2022-10-20] MEDS: APIXABAN 2.5 MG TABLET (WCH) PO ×2 (09:03→21:20)
[2022-10-20 09:04] VITALS: PULSE 60
[2022-10-20] MEDS: Metoprolol Tartrate 25 MG Tablet PO ×2 (09:04→21:20)
[2022-10-20 10:00] VITALS: BP 115/59; PULSE 54; RESP 14; TEMP 36.8; O2SAT 97
[2022-10-20 15:30] VITALS: BMI 27.5
[2022-10-20 19:46] VITALS: BP 114/45; PULSE 55; RESP 17; TEMP 36.6; O2SAT 98
[2022-10-20 20:32] VITALS: BMI 27.5
[2022-10-20] MEDS: Senna/Docusate Sodium 1 Tablet 2 TABLET PO (21:19)
[2022-10-20 21:20] VITALS: BP 125/61; PULSE 56
[2022-10-20] MEDS: MELATONIN 10 MG TABLET PO (21:20)
[2022-10-21] MEDS: Levothyroxine 75 MCG Tablet PO (05:11)
[2022-10-21 07:40] VITALS: BP 120/59; PULSE 59; RESP 16; TEMP 37.1; O2SAT 97
[2022-10-21] MEDS: APIXABAN 2.5 MG TABLET (WCH) PO ×2 (09:03→20:21)
[2022-10-21] MEDS: Pantoprazole Sodium 40 MG Tablet PO (09:03)
[2022-10-21 09:04] VITALS: BP 120/59; PULSE 59
[2022-10-21] MEDS: Cholecalciferol (VIT D3) 25 MCG TABLET (1,000 UNITS) PO (09:04)
[2022-10-21] MEDS: Metoprolol Tartrate 25 MG Tablet PO ×2 (09:04→20:22)
--- NOTE | 2022-10-21 09:42 | PCM.PROGNOTE ---
Subjective Subjective Afebrile VSS Maintaining appropriate oxygen saturation on RA Oral intake is good Discussed with nursing - no problems that need addressed Reviewed the PT/OT/ST notes Medication list reviewed. Denies pain. Denies calf tenderness, CP, SOB, dysuria, palpitations, lightheadedness and difficulty sleeping. Objective Data Objective Data Vital Signs: Vital Signs Temp Pulse Resp BP Pulse Ox O2 Del Method 98.8 F 59 L 16 120/59 L 97 Room Air 10/21/22 07:40 10/21/22 09:04 10/21/22 07:40 10/21/22 09:04 10/21/22 07:40 10/21/22 07:40 Oxygen Delivery Method Room Air Weight: 160 lb 7.944 oz Body Mass Index (BMI) 27.5 Lab / Micro Data Result Diagrams: 10/19/22 05:23 10/19/22 05:23 Micro: Microbiology 10/13/22 04:55 Stool Stool Occult Blood (ALEXA) - Final Occult Blood Positive Physical Exam Const alert and no apparent distress General Appearance: cooperative HEENT moist oral mucous membranes Resp normal respiratory effort, no use of accessory muscles and clear to auscultation bilaterally Effort and Inspection: Negative for tachypneic or labored Cardio regular rate, regular rhythm and no gallops GI normal to inspection, nondistended, normoactive bowel sounds, non-tender and non-distended GI Narrative: no guarding with palpation Extremity Negative for no calf tenderness General Extremity: Negative for edema Skin Skin Narrative: The left heel is no longer painful since the Mepilex was applied. There is just a trace of redness and it is blanchable. General Skin Exam: no breakdown Rashes: no rashes Neuro CN's II-XII intact bilaterally, no focal motor deficits and no sensory deficits noted Psych affect normal Assessment & Plan Assessment/Plan (1) Debility: (2) Acute right MCA stroke: (3) Bimalleolar fracture of left ankle: (4) Chronic renal failure (CRF), stage 3b: (5) Atrial fibrillation: (6) Hypothyroidism: (7) Allergic rhinitis: (8) Abnormal LFTs (liver function tests): (9) Normochromic normocytic anemia: (10) Dehydration, mild: (11) Osteopenia: (12) Status post open reduction with internal fixation (ORIF) of fracture of ankle: (13) Iron deficiency anemia due to chronic blood loss: (14) Heme positive stool: (15) Complex renal cyst: (16) Bradycardia: PLAN: Plan 1. Continue therapy 2. Pt is going to get a temporary ramp so she does not have to go up steps to enter her house. 3. [facility] Her son will be staying with her. Charges/Coding Visit Charges Inpatient E&M: 09893 Subs Hosp L2
[2022-10-21 12:12] VITALS: BMI 27.5
--- NOTE | 2022-10-21 12:43 | CASEMGMT ---
Social Work IDT met with patient and dtr via conference call for Team meeting. Discussed patient's progress in PT/OT/SN. Educated to [facility] insurance with [employer] 10/19 and have not received outcome at this time, but continued stay is not guaranteed. Confirmed DC plan is home with skilled HHC. Pt is planning on installing a ramp for steps to enter. Pt has walking boot and is TTWB. Pt requesting outpatient PT at [facility] and a BSC. SW to coordinate that for DC. Will continue to follow. Shawna Trevino, PROCESS LINE OPERATOR ADJUSTER ARBITRATOR
[2022-10-21 19:57] VITALS: BP 112/76; PULSE 56; RESP 14; TEMP 36.5; O2SAT 99
[2022-10-21] MEDS: Senna/Docusate Sodium 1 Tablet 2 TABLET PO (20:21)
[2022-10-21 20:22] VITALS: BP 119/57; PULSE 56
[2022-10-21] MEDS: traZODone 50 MG Tablet PO (20:26)
--- NOTE | 2022-10-21 20:36 | NURSING ---
Pt requested medication at this time
[2022-10-22 01:46] VITALS: BMI 27.5
[2022-10-22] MEDS: Levothyroxine 75 MCG Tablet PO (06:02)
[2022-10-22 08:06] VITALS: BP 105/53; PULSE 63; RESP 16; TEMP 36.8; O2SAT 98
[2022-10-22 08:49] VITALS: BP 105/53; PULSE 63
[2022-10-22] MEDS: APIXABAN 2.5 MG TABLET (WCH) PO ×2 (08:49→21:55)
[2022-10-22] MEDS: Cholecalciferol (VIT D3) 25 MCG TABLET (1,000 UNITS) PO (08:49)
[2022-10-22] MEDS: Metoprolol Tartrate 25 MG Tablet PO ×2 (08:49→21:55)
[2022-10-22] MEDS: Pantoprazole Sodium 40 MG Tablet PO (08:49)
--- NOTE | 2022-10-22 11:49 | CASEMGMT ---
Social Work Pt requesting to DC home 10/26. SW educated to insurance approving through 10/25 anyway. Pt confirms [facility] and BSC. SW faxed referral to [facility] and sent to [facility] via [employer]. Dtr to transport. Plan: DC home alone 10/26, [facility]. BSC DELGADO JamesW
[2022-10-22 16:46] VITALS: BMI 27.5
[2022-10-22 21:50] VITALS: BP 125/44; PULSE 51; RESP 14; RESP 16; TEMP 37; O2SAT 99; BMI 27.5
[2022-10-22 21:55] VITALS: BP 125/44; PULSE 51
[2022-10-22] MEDS: MELATONIN 10 MG TABLET PO (21:55)
[2022-10-22] MEDS: Senna/Docusate Sodium 1 Tablet 2 TABLET PO (21:56)
[2022-10-23] MEDS: Levothyroxine 75 MCG Tablet PO (06:21)
[2022-10-23 07:37] VITALS: BP 119/52; PULSE 56; RESP 16; TEMP 36.2; O2SAT 95
[2022-10-23] MEDS: Cholecalciferol (VIT D3) 25 MCG TABLET (1,000 UNITS) PO (08:08)
[2022-10-23] MEDS: Pantoprazole Sodium 40 MG Tablet PO (08:08)
[2022-10-23 08:09] VITALS: BP 119/52; PULSE 56
[2022-10-23] MEDS: Metoprolol Tartrate 25 MG Tablet PO ×2 (08:09→21:20)
[2022-10-23] MEDS: APIXABAN 2.5 MG TABLET (WCH) PO ×2 (08:09→21:17)
[2022-10-23 15:11] VITALS: BMI 27.5
[2022-10-23 19:42] VITALS: BP 101/46; PULSE 57; RESP 16; TEMP 37.1; O2SAT 96
[2022-10-23] MEDS: MELATONIN 10 MG TABLET PO (21:17)
[2022-10-23] MEDS: Senna/Docusate Sodium 1 Tablet 2 TABLET PO (21:17)
[2022-10-23 21:20] VITALS: PULSE 60
[2022-10-24 00:13] VITALS: BMI 27.5
[2022-10-24] MEDS: Levothyroxine 75 MCG Tablet PO (06:06)
[2022-10-24 07:53] VITALS: BP 115/52; PULSE 57; RESP 14; TEMP 36.6; O2SAT 96
[2022-10-24 09:55] VITALS: PULSE 62
[2022-10-24] MEDS: Cholecalciferol (VIT D3) 25 MCG TABLET (1,000 UNITS) PO (09:55)
[2022-10-24] MEDS: Metoprolol Tartrate 25 MG Tablet PO ×2 (09:55→19:53)
[2022-10-24] MEDS: Pantoprazole Sodium 40 MG Tablet PO (09:56)
[2022-10-24] MEDS: APIXABAN 2.5 MG TABLET (WCH) PO ×2 (09:56→19:53)
[2022-10-24 13:04] VITALS: BMI 27.5
[2022-10-24 19:38] VITALS: BP 103/60; PULSE 51; RESP 17; TEMP 37.1; O2SAT 96
[2022-10-24 19:51] VITALS: PULSE 57
[2022-10-24 19:53] VITALS: PULSE 57
[2022-10-24] MEDS: MELATONIN 10 MG TABLET PO (19:53)
[2022-10-24] MEDS: Senna/Docusate Sodium 1 Tablet 2 TABLET PO (19:53)
--- NOTE | 2022-10-24 19:58 | NURSING ---
MEDS GIVEN AT THIS TIME PER PT REQUEST
[2022-10-25] MEDS: Levothyroxine 75 MCG Tablet PO (05:52)
[2022-10-25 08:07] VITALS: BP 121/50; PULSE 58; RESP 14; TEMP 36.7; O2SAT 95
[2022-10-25 09:18] VITALS: BP 121/50; PULSE 58
[2022-10-25] MEDS: Cholecalciferol (VIT D3) 25 MCG TABLET (1,000 UNITS) PO (09:18)
[2022-10-25] MEDS: Metoprolol Tartrate 25 MG Tablet PO ×2 (09:18→20:49)
[2022-10-25] MEDS: APIXABAN 2.5 MG TABLET (WCH) PO ×2 (09:18→20:51)
[2022-10-25] MEDS: Pantoprazole Sodium 40 MG Tablet PO (09:18)
[2022-10-25 13:13] VITALS: BMI 27.5
[2022-10-25 20:30] VITALS: BP 111/53; PULSE 54; RESP 16; TEMP 36.7; O2SAT 97; BMI 27.5
[2022-10-25 20:49] VITALS: BP 111/53; PULSE 54
[2022-10-25] MEDS: MELATONIN 10 MG TABLET PO (20:51)
[2022-10-25] MEDS: Senna/Docusate Sodium 1 Tablet 2 TABLET PO (20:51)
[2022-10-26] MEDS: Levothyroxine 75 MCG Tablet PO (06:23)
[2022-10-26 07:47] VITALS: BP 100/54; PULSE 58; RESP 16; TEMP 36.6; O2SAT 99
[2022-10-26 07:49] VITALS: BP 100/54; PULSE 58
[2022-10-26] MEDS: Pantoprazole Sodium 40 MG Tablet PO (07:49)
[2022-10-26] MEDS: Cholecalciferol (VIT D3) 25 MCG TABLET (1,000 UNITS) PO (07:49)
[2022-10-26] MEDS: APIXABAN 2.5 MG TABLET (WCH) PO (07:49)
[2022-10-26] MEDS: Metoprolol Tartrate 25 MG Tablet PO (07:49)
--- NOTE | 2022-10-26 10:00 | DCINST_ITS ---
Discharge Instructions Diet Discharge Diet: Low fat / Low cholesterol Activity Discharge Activity: May Not Drive, May Shower and - (Use the knee walker for getting around and the shower chair and wheeled walker for getting up the steps. ) Weight Bearing Status: Toe touch weight bearing (left leg ) Keep extremity elevated above heart level: Left Leg Dressing / Incision Call your doctor if your incision/area has: Continuous Slow Oozing, Increased Pain/ Swelling, Increased Redness and Foul Smelling Discharge Call your doctor if you observe: Fever of 101 or Higher, Numbness or Tingling, Shortness of breath, Dizziness, Fainting spells, Swelling in the ankles, Chest pain, Increased palpitations (irregular heartbeat), Calf discomfort and Uncontrolled pain Cleanse incision/area with: Soap & Water Follow Up Care Please Follow Up With: Reddy Crowe MD When: Dr. Crowe on 10/28/22 at [address] Thomas on 11/12/22 at 9 AM Test Results: Test results from this visit will be discussed in further detail at your follow- up appointment, if applicable. Pending Tests Upon Discharge: none Discharge Plan Admission Admit Date/Time: 10/05/22 15:40 Primary Reason for Your Visit: Post stroke debility Attending Provider: Radha Hinkle Primary Care Provider: Reddy Crowe Consulting Providers: Ramin Pedroza Chi ; Carlos Thomas Instructions Patient Instructions: Alkaline Phosphatase, Anticoagulants, Discharge Instructions for Stroke, AFib Preventing Stroke, Simple Kidney Cysts Additional Instructions / Restrictions: 1. You have done very well in rehab and I do not foresee you having any problems going home. I do not know what caused you to fall in the bathroom at the other hospital but, I have a theory. Your BP is frequently on the low side and usually you have no lightheadedness with this. Sometimes you do not stay w ell hydrated and the BP drops even more. One of the first things to happen when you have chronic kidney disease is the kidney loses the ability to concentrate the urine. this makes it easy to get dehydrated. When you get dehydrated and stand up, no if for a prolonged period of time, gravity takes the blood to your feet and away from the brain and you can pass out. Usually when the BP drops with standing the heart rate increases to make up for drop in BP. Increased Heart rate increases the cardiac output. Because you have AFIB you are on a medication called Metoprolol to keep the heart rate from going to fast when you are in AFIB. When you stand up your heart rate is still in the 50's and low 60's and this contributes to lightheadedness and passing out. I have decreased the dose of the Metoprolol to see if this helps. You have not been in AFIB since you came to rehab. Your rhythm is always regular when any of us examine you. TAKE HOME POINT: DO NOT LET YOURSELF GET DEHYDRATED. 2. While you were at the other hospital your liver tests were elevated. This could have been due to some of the Medications.....you were started on a statin (for cholesterol) and these medications can affect the liver. The statin was discontinued and the liver enzymes are better but the AP (alkaline phosphatase) is still significantly elevated. They wanted to do a liver bx at the other hospital but, this was put off. AP can go up with a fracture because AP is not only found in liver it is also found in bone. I think if the AP is still elevated in another week you should see a flat lock machine operator. The flat lock machine operator at this hospital is Dr. Bob Friend. You could follow up with Dr. Ro to further investigate why the AP is elevated. 3. Also at the other hospital a CT of the abd was done and it showed a complex cyst on 1 of your kidneys. This may just be a simple cyst and nothing to worry about but, the you should have another US of the kidneys in 6-12 months to make sure it is not changing/enlarging. Dr. Crowe can order the US (ultrasound) for you. 4. You are anemic. We checked your iron studies and you were found to be iron deficient. Iron is a necessary building block for the bone marrow to be able to make new red blood cells. The most common reason people become iron deficient is blood loss. You are losing blood in the gastrointestinal tract.......not uncommon in patients on anticoagulants. We gave you 700 mg of intravenous iron and I am sending you home on an iron supplement. Dr. Crowe will want to recheck another blood count in another week or so to makes sure the blood count is going up since the iron was replaced. To absorb iron from the gastrointestinal track you must have acid. Medications like pantoprazole (Protonix) reduce the acid in your stomach by about 90 to 95%. This can impair iron absorption. Taking your iron tablet with 500 mg of vitamin C (ascorbic acid) can sometimes increase iron absorption. Some people who are chronically on medications like Protonix need to have iron replaced intravenously because they cannot absorb oral iron. 5. I will be sending Dr. Crowe and Dr. Thomas a copy of your discharge summary so that they are up to speed on the things that still need to be addressed post discharge form rehab. 6. You have been diagnosed with osteopenia. Osteopenia can progress to osteoporosis which increases your risk of fractures, even if you do not fall. If you have osteopenia you should have a bone mineral density test every 2 years. There are many options for treatment of osteoporosis including a shot once a year. If you have not had a bone density study in the past [address] Crowe to order one for you. We do those here at the hospital on the ground floor of the oncology building behind [facility]. 7. It has been a pleasure getting to know you. We all appreciated your hard work and good attitude while you have been in rehab. If you or Jeniver have any questions after you leave rehab please feel free to call me. OFFICE: [phone] CELL: [phone] If you ever feel lightheaded when standing sit down as soon as possible to prevent passing out. Discharge Orders/Prescriptions Prescriptions: New metoprolol tartrate 25 mg tablet 12.5 mg PO BID Qty: 20 0RF Rx Instructions: 1/2 tab every 12H ferrous sulfate 324 mg (65 mg iron) tablet,delayed release (DR/EC) 324 mg PO DAILY Qty: 30 0RF Rx Instructions: take with food and 500 mg Vitamin C acetaminophen 325 mg capsule 650 mg PO Q6H PRN (Reason: fever or pain) Qty: 1 0RF Continued biotin 1,000 mcg Tablet,Chewable 1,000 mcg PO DAILY hydrocortisone 2.5 % Cream With Applicator 1 ea [place] 0600,2200 triamcinolone acetonide 0.025 % Cream 1 applic TOPICAL BID PRN (Reason: itchy) ergocalciferol (vitamin D2) 1,000 unit Capsule 1,000 unit PO DAILY levothyroxine 75 mcg Tablet 75 mcg PO DAILY Qty: 30 0RF Rx Instructions: Take in the AM with water on empty stomach. No eating or drinking for 30 min. pantoprazole 40 mg Tablet,Delayed Release (Dr/Ec) 40 mg PO DAILY Qty: 30 0RF Eliquis 2.5 mg tablet 2.5 mg PO BID Qty: 60 0RF Discontinued metoprolol tartrate 25 mg tablet 25 mg PO BID propranolol 10 mg Tablet 10 mg PO BID PRN (Reason: elevated BP/HR) pantoprazole 40 mg Tablet,Delayed Release (Dr/Ec) 40 mg PO 0600,1600 No Action oxycodone [OxyIR] 5 mg Capsule 5 mg PO Q6H PRN (Reason: Pain 1-10) Referrals / Follow Up: Carlos Thomas DO [Med Staff - Active Staff] - 11/12/22 9:00 am Reddy Crowe MD [Primary Care Provider] - 10/28/22 10:00 am Disposition Disposition (needs filled in before D/C Order can be placed): Home, Self Care
[2022-10-26 11:31] VITALS: BP 126/56; PULSE 61; RESP 16; TEMP 36.6; O2SAT 96
--- NOTE | 2022-10-26 11:32 | PCM.DC.SUM ---
Providers Date of Admission: 10/05/22 Date of Discharge: 10/26/22 Primary Care Physician: Dr. Reddy Crowe MD Consultations 10/15/22 09:17 Consult: Orthopedics Routine Consulting Provider: Carlos Thomas Reason for Consult: Left Tib/fib fracture with hx of recent ORIF EMERGENT Consult: No MD Notified: Yes Date Notified: 10/15/22 Time Notified: 09:17 Method of Notification: Text Reason For Visit: STROKE Diagnosis Discharge Diagnosis (1) Debility: Status: Acute Code(s): R53.81 - Other malaise (2) Acute right MCA stroke: Status: Acute Code(s): I63.511 - Cerebral infarction due to unspecified occlusion or stenosis of right middle cerebral artery (3) Bimalleolar fracture of left ankle: Status: Acute Code(s): S82.842A - Displaced bimalleolar fracture of left lower leg, initial encounter for closed fracture (4) Status post open reduction with internal fixation (ORIF) of fracture of ankle: Status: Acute Code(s): Z98.890 - Other specified postprocedural states; Z87.81 - Personal history of (healed) traumatic fracture (5) Abnormal LFTs (liver function tests): Status: Acute Code(s): R79.89 - Other specified abnormal findings of blood chemistry (6) Normochromic normocytic anemia: Status: Acute Code(s): D64.9 - Anemia, unspecified (7) Iron deficiency anemia due to chronic blood loss: Status: Chronic Code(s): D50.0 - Iron deficiency anemia secondary to blood loss (chronic) (8) Heme positive stool: Status: Acute Code(s): R19.5 - Other fecal abnormalities (9) Chronic renal failure (CRF), stage 3b: Status: Acute Code(s): N18.32 - Chronic kidney disease, stage 3b (10) Atrial fibrillation: Status: Acute Code(s): I48.91 - Unspecified atrial fibrillation (11) Hypothyroidism: Status: Acute Code(s): E03.9 - Hypothyroidism, unspecified (12) Allergic rhinitis: Status: Acute Code(s): J30.9 - Allergic rhinitis, unspecified (13) Dehydration, mild: Status: Acute Code(s): E86.0 - Dehydration (14) Osteopenia: Status: Acute Code(s): M85.80 - Other specified disorders of bone density and structure, unspecified site (15) Complex renal cyst: Status: Acute Code(s): N28.1 - Cyst of kidney, acquired (16) Bradycardia: Status: Acute Code(s): R00.1 - Bradycardia, unspecified Plan 1. DC home 2. Follow up with Dr. Crowe, Dr. Thomas, stone polisher machine and neurology 3. OP therapy at [facility] Medications at Discharge Home Medications biotin 1,000 mcg chewable tablet 1,000 mcg PO DAILY Check with primary doctor 11/11/21 ergocalciferol (vitamin D2) 1,000 unit capsule 1,000 unit PO DAILY supplement 10/05/22 hydrocortisone 2.5 % rectal cream with applicator 1 ea [place] 0600,2200 hemorrhoids 10/05/22 oxycodone 5 mg capsule 5 mg PO Q6H PRN Pain 1-10 10/05/22 triamcinolone acetonide 0.025 % topical cream 1 applic topical BID PRN itchy 10/05/22 acetaminophen 325 mg capsule 650 mg PO Q6H PRN fever or pain #1 cap 10/26/22 apixaban 2.5 mg tablet (Eliquis) 2.5 mg PO BID A-Fib #60 tabs 10/26/22 ferrous sulfate 324 mg (65 mg iron) tablet,delayed release 324 mg PO DAILY #30 tabs 10/26/22 levothyroxine 75 mcg tablet 75 mcg PO DAILY hypothyroid #30 tabs 10/26/22 metoprolol tartrate 25 mg tablet 12.5 mg PO BID #20 tabs 10/26/22 pantoprazole 40 mg tablet,delayed release 40 mg PO DAILY Check with primary doctor #30 tabs 10/26/22 Hospital Course Operations - (ORIF of L ankle tib/fib fracture on 09/28/22 at [facility] by Dr. Reagan) Procedures None Summary of Care Provided Minutes Spent on Discharge: 45 Hospital Course: Radha presented to the ED at [facility] on 09/23/22 c/o L leg numbness and a severe LIEBERMAN. MRI of the brain showed multiple scattered infarcts in the right MCA territory. CTA of the head showed significant stenosis of the bifurcation of the right middle cerebral artery. She was transferred from [facility] to [facility] to be evaluated by interventional radiology. No intervention was done. While at [facility] she fell in the BR and sustained a L ankle tib/fib fracture. On 09/28/22 she had ORIF of the left bimalleolar ankle fracture by Dr. Reagan. While at [facility] Her LFT's were found to be elevated. She had an ultrasound of the liver that was negative. She was seen by the GI service and had a CT scan of the abdomen/pelvis which showed a complex renal cyst, hiatal hernia and bladder diverticulum. GI also ordered and alpha 1 antitrypsin and ceruloplasmin and both were unremarkable. She had a mitochondrial M2 IgG and the results were pending at the time of her discharge from [facility]. GI recommended a liver biopsy however the patient preferred to heal from her fracture prior to undertaking a liver biopsy. The abd LFT's could possibly be due to a statin which was started when she had the stroke. While at [facility] she was seen by PT/OT/ST and a recommendation for acute inpatient rehab was given. She was transferred to [facility] acute rehab on 10/05/2022 for 3 hours of therapy daily to restore function/independence at or near her level prior to the stroke. Lab done at [facility] showed the hemoglobin to be down to 8.7. The white blood cell count and platelets were normal. The BUN was elevated at 30 with a creatinine of 1.48. Iron studies showed a low serum iron at 32 and a very low iron saturation of 8.3. Ferritin was 52 but, this likely does not represent true iron storage because ferritin is an acute phase reactant and is likely falsely elevated due to acute inflammation from the fracture. She received 700 mg of IV iron and was started on Ferrous sulfate with 500 mg of Vitamin C. She is chronically on a PPI and may not be able to absorb oral iron so she may need to have IV iron when the H/H starts to drop. She had heme positive stools in rehab and she has a history of a colonoscopy within the past 2 years that showed internal hemorrhoids and diverticulosis. She is chronically on Eliquis and it would not be unusual to have some chronic blood loss. Repeat liver enzymes showed the bilirubin and transaminases to be unremarkable but the alkaline phosphatase remained elevated at 320. This could be due to the fracture but, She has been c/o being itchy frequently prior to the admission to the hospital and she could have something like primary biliary cirrhosis. She should have the alkaline phosphatase repeated in 1 month and if it is still elevated she will follow-up with Dr. Paulino Ro for further work-up. Radha did not want to go back to [facility] for follow up and instead wanted to follow up with orthopedics in [place] since she lives in [place]. Dr. Thomas was consulted and she had a Xray of the L ankle on on 10/15/2022 that showed satisfactory alignment of the left ankle status post ORIF for bimalleolar fractures. The fabricated splint was removed and sutures were removed. She had intact sensation throughout the left lower extremity with good capillary refill. She was placed in a tall walking boot and was made toe-touch weightbearing. She is afraid to toe touch and so she continued to be NWB on the LLE. She has a follow up appt scheduled with Dr. Thomas on 11/12/22. Radha did quite well in therapy and has only taken Oxycodone 3 times while on rehab. The last dose was on 10/08/22. At the time of discharge she is independent with eating and upper body dressing. She is modified independent for grooming, lower body dressing, toileting and toilet transfer. She is supervision/set up for tub/shower transfer. She has ambulated up to 260 feet on various surfaces at mod I with a knee scooter. She is able to go from sitting to standing and can stand/pivot at mod I. She has good mobility at mod I. She was able to do a platform stair transfer with the shower chair and front wheeled walker at [facility] assist for management of the walker and shower chair to change positions to the next depth level. Radha tells me she feels comfortable with this. She was seen by ST on but, had no swallow, speech or cognitive deficits and speech did not pick her up for therapy. She was discharged home on 10/26/22 and will have OP PT/OT at [facility]. DME included a shower chair. She has follow up appts scheduled for Dr. Crowe and Dr. Thomas. She will also need to follow up with cardiology and neurology. Her BP is borderline low and her heart rate is in the 50's. She sometimes does not have adequate fluid intake and with the CRF stage 3 likely can not concentrate her urine. The combination of dehydration and bradycardia can cause significant orthostasis. She has had no AF while on rehab. The metoprolol dose was decreased to 12.5 mg BID to help prevent low BP's and orthostasis. She has a hx of osteopenia and is on a Vitamin D supplement. She was not taking a calcium supplement and she has CRF stage 3b. Calcium tends to be low in patients with CRF and I recommended to her that she started taking TUMS, 1 BID. If she has not had a BMD test in the past 2 years would recommend she have one done in the near future. Repeat LFT's in 1 month - if the AP is still increased she will follow up with Dr. Ro. Repeat renal US in 6-12 months Repeat CBC in 2-4 weeks Physical Exam Const alert, oriented x3 and no apparent distress General Appearance: cooperative HEENT Mouth: dry mucous membranes Eyes PERRL and EOMs intact bilaterally Neck No nuchal rigidity and no carotid bruits Resp normal respiratory effort, normal air movement and clear to auscultation bilaterally Effort and Inspection: Negative for tachypneic or labored Cardio regular rhythm, no murmurs, no rub and no gallops Rate: bradycardia GI normal to inspection, nondistended, normoactive bowel sounds, soft to palpation and non-tender Extremity normal capillary refill and no calf tenderness Extremity Narrative: Mild edema of the Left distal LE. She is good about keeping the LLE elevated when she is sitting in a chair. She has intact sensation in the L ankle and foot. General Extremity: Negative for cyanosis Skin Skin Narrative: The incisions of the left ankle are healing and there is no mejia-incisional erythema, no DC and no increased warmth to touch. General Skin Exam: no breakdown Rashes: no rashes Neuro CN's II-XII intact bilaterally Neuro Narrative: NIHSS is 0. MRS is 1 Psych affect normal Appearance: appropriate Weight / BMI Weight Weight: 160 lb 7.944 oz Body Mass Index (BMI) 27.5 ABG / Lab / Microbiology Data Result Diagrams: 10/19/22 05:23 10/19/22 05:23 Microbiology: Microbiology 10/13/22 04:55 Stool Stool Occult Blood (ALEXA) - Final Occult Blood Positive D/C Instructions Discharge Diet: Low fat / Low cholesterol Weight Bearing Status: Toe touch weight bearing (left leg ) Keep extremity elevated above heart level: Left Leg Call your doctor if your incision/area has: Continuous Slow Oozing, Increased Pain/ Swelling, Increased Redness and Foul Smelling Discharge Call your doctor if you observe: Fever of 101 or Higher, Numbness or Tingling, Shortness of breath, Dizziness, Fainting spells, Swelling in the ankles, Chest pain, Increased palpitations (irregular heartbeat), Calf discomfort and Uncontrolled pain Cleanse incision/area with: Soap & Water Pending Tests Upon Discharge: none Please Follow Up With: Reddy Crowe MD When: Dr. Crowe on 10/28/22 at [address] Thomas on 11/12/22 at 9 AM Meaningful Use Info Meaningful Use Diagnoses (Choose all that apply): Ischemic CVA CVA Therapy Assessed for PT,OT and/or ST?: Yes Ischemic Stroke Antithrombotic order at d/c?: No Reason antithrombotic not ordered: Medical Contraindication (She has heme + stool and anemia and is on an anticoagulant) Dx of Atrial fib/flutter?: Yes Anticoagulant at discharge?: Yes Statins at discharge?: No Reason Statin not ordered: Adverse Reaction to Drug (LFT's elevated and the statin was discontinued. ) Primary Dx Acute Ischemic CVA?: Yes IV thrombolytic ordered during stay?: No Reason IV thrombolytic not ordered: Treatment not Indicated Discharge Plan Admission Admit Date/Time: 10/05/22 15:40 Primary Reason for Your Visit: Post stroke debility Attending Provider: Radha Hinkle Primary Care Provider: Reddy Crowe Consulting Providers: Ramin Pedroza Chi ; Carlos Thomas Instructions Patient Instructions: Alkaline Phosphatase, Anticoagulants, Discharge Instructions for Stroke, AFib Preventing Stroke, Simple Kidney Cysts Additional Instructions / Restrictions: 1. You have done very well in rehab and I do not foresee you having any problems going home. I do not know what caused you to fall in the bathroom at the other hospital but, I have a theory. Your BP is frequently on the low side and usually you have no lightheadedness with this. Sometimes you do not stay well hydrated and the BP drops even more. One of the first things to happen when you have chronic kidney disease is the kidney loses the ability to concentrate the urine. this makes it easy to get dehydrated. When you get dehydrated and stand up, no if for a prolonged period of time, gravity takes the blood to your feet and away from the brain and you can pass out. Usually when the BP drops with standing the heart rate increases to make up for drop in BP. Increased Heart rate increases the cardiac output. Because you have AFIB you are on a medication called Metoprolol to keep the heart rate from going to fast when you are in AFIB. When you stand up your heart rate is still in the 50's and low 60's and this contributes to lightheadedness and passing out. I have decreased the dose of the Metoprolol to see if this helps. You have not been in AFIB since you came to rehab. Your rhythm is always regular when any of us examine you. TAKE HOME POINT: DO NOT LET YOURSELF GET DEHYDRATED. 2. While you were at the other hospital your liver tests were elevated. This could have been due to some of the Medications.....you were started on a statin (for cholesterol) and these medications can affect the liver. The statin was discontinued and the liver enzymes are better but the AP (alkaline phosphatase) is still significantly elevated. They wanted to do a liver bx at the other hospital but, this was put off. AP can go up with a fracture because AP is not only found in liver it is also found in bone. I think if the AP is still elevated in another week you should see a gaming cashier. The gaming cashier at this hospital is Dr. Paulino Ro. You could follow up with Dr. Ro to further investigate why the AP is elevated. 3. Also at the other hospital a CT of the abd was done and it showed a complex cyst on 1 of your kidneys. This may just be a simple cyst and nothing to worry about but, the you should have another US of the kidneys in 6-12 months to make sure it is not changing/enlarging. Dr. Crowe can order the US (ultrasound) for you. 4. You are anemic. We checked your iron studies and you were found to be iron deficient. Iron is a necessary building block for the bone marrow to be able to make new red blood cells. The most common reason people become iron deficient is blood loss. You are losing blood in the gastrointestinal tract.......not uncommon in patients on anticoagulants. We gave you 700 mg of intravenous iron and I am sending you home on an iron supplement. Dr. Crowe will want to recheck another blood count in another week or so to makes sure the blood count is going up since the iron was replaced. To absorb iron from the gastrointestinal track you must have acid. Medications like pantoprazole (Protonix) reduce the acid in your stomach by about 90 to 95%. This can impair iron absorption. Taking your iron tablet with 500 mg of vitamin C (ascorbic acid) can sometimes increase iron absorption. Some people who are chronically on medications like Protonix need to have iron replaced intravenously because they cannot absorb oral iron. 5. I will be sending Dr. Crowe and Dr. Thomas a copy of your discharge summary so that they are up to speed on the things that still need to be addressed post discharge form rehab. 6. You have been diagnosed with osteopenia. Osteopenia can progress to osteoporosis which increases your risk of fractures, even if you do not fall. If you have osteopenia you should have a bone mineral density test every 2 years. There are many options for treatment of osteoporosis including a shot once a year. If you have not had a bone density study in the past [address] Crowe to order one for you. We do those here at the hospital on the ground floor of the oncology building behind [facility]. 7. It has been a pleasure getting to know you. We all appreciated your hard work and good attitude while you have been in rehab. If you or Jeniver have any questions after you leave rehab please feel free to call me. OFFICE: [phone] CELL: [phone] If you ever feel lightheaded when standing sit down as soon as possible to prevent passing out. Discharge Orders/Prescriptions Prescriptions: New metoprolol tartrate 25 mg tablet 12.5 mg PO BID Qty: 20 0RF Rx Instructions: 1/2 tab every 12H ferrous sulfate 324 mg (65 mg iron) tablet,delayed release (DR/EC) 324 mg PO DAILY Qty: 30 0RF Rx Instructions: take with food and 500 mg Vitamin C acetaminophen 325 mg capsule 650 mg PO Q6H PRN (Reason: fever or pain) Qty: 1 0RF Continued biotin 1,000 mcg Tablet,Chewable 1,000 mcg PO DAILY hydrocortisone 2.5 % Cream With Applicator 1 ea AK 0600,2200 triamcinolone acetonide 0.025 % Cream 1 applic TOPICAL BID PRN (Reason: itchy) ergocalciferol (vitamin D2) 1,000 unit Capsule 1,000 unit PO DAILY levothyroxine 75 mcg Tablet 75 mcg PO DAILY Qty: 30 0RF Rx Instructions: Take in the AM with water on empty stomach. No eating or drinking for 30 min. pantoprazole 40 mg Tablet,Delayed Release (Dr/Ec) 40 mg PO DAILY Qty: 30 0RF Eliquis 2.5 mg tablet 2.5 mg PO BID Qty: 60 0RF Discontinued metoprolol tartrate 25 mg tablet 25 mg PO BID propranolol 10 mg Tablet 10 mg PO BID PRN (Reason: elevated BP/HR) pantoprazole 40 mg Tablet,Delayed Release (Dr/Ec) 40 mg PO 0600,1600 No Action oxycodone [OxyIR] 5 mg Capsule 5 mg PO Q6H PRN (Reason: Pain 1-10) Referrals / Follow Up: Carlos Thomas DO [Med Staff - Active Staff] - 11/12/22 9:00 am Reddy Crowe MD [Primary Care Provider] - 10/28/22 10:00 am Disposition Disposition (needs filled in before D/C Order can be placed): Home, Self Care Charges/Coding Visit Charges Inpatient E&M: 85189 Disch Hosp >30min
== END 2022-10-26 13:30 | disposition home or self-care (01) | DRG 561 ==
PROVIDERS: Admitting Provider Family Medicine Geriatric Medicine; PCP Family Medicine; Referring Provider Family Medicine Geriatric Medicine; Visit Provider Internal Medicine
DX: S82.842D Displaced bimalleolar fracture of left lower leg, subsequent encounter for closed fracture with routine healing (principal); D50.0 Iron deficiency anemia secondary to blood loss (chronic); I48.91 Unspecified atrial fibrillation; E86.0 Dehydration; E03.9 Hypothyroidism, unspecified; N18.31 Chronic kidney disease, stage 3a; E55.9 Vitamin D deficiency, unspecified; J30.9 Allergic rhinitis, unspecified; R00.1 Bradycardia, unspecified; W19.XXXD Unspecified fall, subsequent encounter; K29.70 Gastritis, unspecified, without bleeding; Z87.891 Personal history of nicotine dependence; Z86.73 Personal history of transient ischemic attack (TIA), and cerebral infarction without residual deficits; Z79.899 Other long term (current) drug therapy; Z79.890 Hormone replacement therapy; Z79.01 Long term (current) use of anticoagulants; N28.1 Cyst of kidney, acquired
CPT/HCPCS: 36415; 73590; 80048; 80053; 82274; 82728; 83540; 83550; 83735; 84100; 85014; 85018; 85025; 85027; 94668; 96125; 97110; 97112; 97116; 97162; 97166; 97530; 97535; 97542; 97802; 97803; 99252; J7050; A4216; G0463; J2916

== ENCOUNTER 2022-11-02 10:50 | Outpatient (RCR) | payer MEDICARE, SELFPAY ==
--- NOTE | 2022-11-02 14:20 | HP.PTEVAL_ITS ---
Patient's Visit Information NAOMI HARRISON is a 82 year old F referred to Physical Therapy by Dr. Naomi Hinkle DO with a diagnosis of L ankle bimaleolar fx 09/03/22. Date of Evaluation: 11/02/22 Physical Therapist: Ulysses Wiggins, PT, ATC - Visit Plan Frequency: 2-3x /Week Duration: 4-6 Weeks Plan: L ankle PROM/mobs, stretching and strengthening, balance and proprio, bike, and HEP - Subjective DOS: September 03, 2022. Pt reports she went to the ER secondary to feeling like she was having a stroke. Pt notes she was transferred to [facility] at that time to be assessed. Pt notes they kept her overnight, and reports while she was there, she went to the bathroom. As she left the bathroom, her ankle gave out on her and she fell, resulting in a bimalleolar fracture of the L ankle. Pt reports she was in the hospital for one week. Pt then reports she was transferred to the [facility] rehab unit for 3 weeks. Pt reports she has been out now for one week. Pt reports her orders are WBAT. Pt notes she is to wean herself off of the boot as tolerated. Pt reports she is retired at this time. Pt notes 3 steps to enter the house, which she is able to negotiate one step at a time. Pt hopes to be able to drive soon and work on her gardens. 0/10 pain at rest, And pt notes she has not had pain for the last few weeks. - Pain L ankle Pain Intensity (Out of 10): 0 Pain Intensity Range: 0 - Objective Neuro: B LE sensation is WNL to light touch. Girth: R ankle 51 cm, L ankle 52 cm. ROM: R ankle DF= 8, PF= 55; L ankle DF= -15, PF= 45 #F. MMT: R ankle DF= 29, PF= 39; L ankle DF= 18, PF= 17 #F. Gait: Pt is PWB'ing at this time on L LE. - Balance/Special Test Scores Lower Extremity Functional Score: 35 - Goals Goal 1:: Increase L ankle DF ROM x 20 degrees to aid with restoring a more normalized gait pattern Goal Time Frame: 4-6 Weeks Goal 2:: Increase L ankle strength x 10#F to aid with stair negotiation Goal Time Frame: 4-6 Weeks Goal 3:: I with HEP Goal Time Frame: 4-6 Weeks - Rehabilitation Potential Physical Therapy Diagnosis: Pt has L ankle pain, limited ROM, and L ankle weakness secondary to L ankle bimalleolar fx Rehabilitation Potential: Good - Anticipated Interventions Patient/Client Instruction: Educate patient on: Condition, Plan of Care For the Purpose of:: To improve self management Therapeutic Exercise to Include: Strength training, Endurance training, Balance training, Flexibilty training, Gait and locomotor training, Passive ROM, Active ROM For the Purpose of:: To decrease pain, To increase ROM, To improve muscle performance and motor function Thank you for the opportunity to evaluate your patient. For Medicare and Medicare HMO plans, please review the plan of care and approve it. It will need to be FAXED BACK to us at [phone] for Medicare purposes. For Medicare only, by signing this I certify the plan of care. Please let me know if there are questions or concerns regarding this plan of care. Physician Signature: Date:
== END 2022-11-02 19:00 | disposition home or self-care (01) ==
LOC: PT 10:50
PROVIDERS: PCP Family Medicine; Referring Provider Internal Medicine; Visit Provider Family Medicine
DX: S82.842D Displaced bimalleolar fracture of left lower leg, subsequent encounter for closed fracture with routine healing (principal); R53.81 Other malaise
CPT/HCPCS: 97110; 97161

== ENCOUNTER 2023-05-13 10:00 | Emergency (ER) | payer MEDICARE, SELFPAY ==
[2023-05-13 10:01] VITALS: BP 117/57; PULSE 55; RESP 16; TEMP 37; O2SAT 99; BMI 28.1
--- NOTE | 2023-05-13 10:43 | CT_ITS ---
HISTORY: right foot weakness. TECHNIQUE: Multiple axial images were obtained of the head without intravenous contrast. A radiation dose optimization technique was used for this scan. 228 images. COMPARISON: 09/23/2022. FINDINGS: BRAIN PARENCHYMA: Multiple foci and zones of low attenuation in the bilateral cerebral white matter compatible with chronic small vessel ischemic gliosis. Chronic right periventricular lacunar infarct. No acute intra-axial hemorrhage identified. CSF SPACES: Generalized volume loss. No midline shift or other significant mass effect. No acute extra-axial hemorrhage seen. OTHER: Intact calvarium. Mild left frontal ethmoid sinus fluid. Unremarkable orbits. CT/Brain/Head without Contrast IMPRESSION: No acute intracranial process identified. Mild chronic involutional and white matter changes. Electronically Signed: Galilea Rojas MD at 11:47 EST ,
--- NOTE | 2023-05-13 10:59 | EX.ED.DYSGE1 ---
HPI History of Present Illness Chief Complaint: Lower Extremity Injury Informant: patient and family Narrative Narrative: 82-year-old female presenting to the emergency room with right foot weakness and paresthesia. Patient states that she is on Eliquis for atrial fibrillation. She noted that as she was walking into the restaurant this morning for breakfast with her family that her right foot from the ankle distally seem to feel different. She describes it as numbness (describes tingling). Family states that did not seem that she was walking any differently. She states that after eating breakfast and ambulating to the parking lot it seemed like she was not moving the foot as well as normally. She states that movement has returned but there is still some tingling present. She denies any thigh or knee symptoms. She denies any muscle cramps. No back pain. No headache. [facility] Medical History Allergic rhinitis Atrial fibrillation Atrial fibrillation Chronic renal failure (CRF), stage 3b History of right MCA stroke Hypothyroidism Hypothyroidism Osteopenia Home Medications biotin 1,000 mcg chewable tablet 1,000 mcg PO DAILY Check with primary doctor 11/11/21 [History Last Taken Unknown] ergocalciferol (vitamin D2) 1,000 unit capsule 1,000 unit PO DAILY supplement 10/05/22 [History Last Taken Unknown] hydrocortisone 2.5 % rectal cream with applicator 1 ea [place] 0600,2200 hemorrhoids 10/05/22 [History Last Taken Unknown] oxycodone 5 mg capsule 5 mg PO Q6H PRN Pain 1-10 10/05/22 [History Last Taken Unknown] triamcinolone acetonide 0.025 % topical cream 1 applic topical BID PRN itchy 10/05/22 [History Last Taken Unknown] acetaminophen 325 mg capsule 650 mg (2 x 325 mg) PO Q6H PRN fever or pain #1 cap 10/26/22 [Rx Last Taken Unknown] apixaban 2.5 mg tablet (Eliquis) 2.5 mg PO BID A-Fib #60 tabs 10/26/22 [Rx Last Taken Unknown] ferrous sulfate 324 mg (65 mg iron) tablet,delayed release 324 mg PO DAILY #30 tabs 10/26/22 [Rx Last Taken Unknown] levothyroxine 75 mcg tablet 75 mcg PO DAILY hypothyroid #30 tabs 10/26/22 [Rx Last Taken Unknown] metoprolol tartrate 25 mg tablet 12.5 mg (1/2 x 25 mg) PO BID #20 tabs 10/26/22 [Rx Last Taken Unknown] pantoprazole 40 mg tablet,delayed release 40 mg PO DAILY Check with primary doctor #30 tabs 10/26/22 [Rx Last Taken Unknown] Allergy/AdvReac Type Severity Reaction Status Date / Time nitrofurantoin Allergy Hives Verified 09/23/22 09:54 [From Macrodantin] benzonatate AdvReac Other Verified 09/23/22 09:54 [From Tessalon Perles] Family History Father CAD (coronary artery disease) Diabetes Brother Multiple sclerosis Brother ALS (amyotrophic lateral sclerosis) Grandfather CAD (coronary artery disease) Surgical History History of blepharoplasty History of eye surgery History of hernia surgery History of mandibular surgery S/P skin biopsy Status post open reduction with internal fixation (ORIF) of fracture of ankle Social History household members: none Smoking Status: Former smoker alcohol intake: current alcohol intake frequency: 0-2 drinks per day Alcohol type: wine details: 2 glasses of wine every 2 weeks. substance use type: does not use ROS ROS ED Constitutional Constitutional ED: Denies chills, fever(s) or weight loss Eyes Eyes: Denies change in vision or diplopia ENT ENT ED: Denies ear pain, rhinorrhea or sore throat Cardiovascular Cardiovascular: Denies chest pain, orthopnea, palpitations or racing heartbeat Respiratory/Chest Respiratory/Chest: Denies cough, dyspnea or orthopnea Gastrointestinal Gastrointestinal: Denies abdominal pain, diarrhea, nausea or vomiting Genitourinary Genitourinary ED: Denies dysuria, hematuria or urinary frequency Musculoskeletal Musculoskeletal: Denies arthralgias or myalgias Integumentary Denies abscess or rash Neurologic Neurologic: Reports paresthesias, weakness and other Details: See history of present illness ; Denies headache(s) Psychiatric Psychiatric: Denies anxiety, depression, suicidal ideation or suicidal thoughts Endocrine Endocrinology: Denies polydipsia, polyphagia or polyuria Allergic/Immunologic Allergic/Immunologic ED: Denies mouth swelling, tongue swelling or urticaria EXAM Physical Exam Const Vital Signs: 05/13/23 10:01 Temperature 98.6 F Temperature Source Temporal Pulse Rate 55 L Respiratory Rate 16 Blood Pressure 117/57 L Blood Pressure Mean 77 Pulse Ox 99 Oxygen Delivery Method Room Air Positive well nourished and well developed General Appearance ED: well developed HEENT Reports normocephalic, head/scalp atraumatic and moist mucous membranes Eyes PERRL and EOMs intact bilaterally Neck no lymphadenopathy, supple and no JVD Resp normal respiratory effort and clear to auscultation bilaterally Cardio regular rate, regular rhythm and no murmurs GI normal to inspection, nondistended, normoactive bowel sounds and non-tender Palpation: soft Back/Spine no CVA tenderness and normal ROM Extremity Extremity Narrative: The foot and toes appear of normal color. Strong dorsalis pedis posterior tibial pulses. No evidence of foot drop. General Extremety ED: Negative for edema General Extremity: Negative for edema Neuro oriented x3 and CN's II-XII intact bilaterally Neuro Narrative: Strong hip flexor and knee extension bilaterally. Reported paresthesia with touching of foot skin. Sensorium / Orientation: alert Sensory Exam: No sensory level loss detected Motor Exam: strength 5/5 throughout Psych mental status grossly normal Mood & Affect: Negative for depressed or tearful Skin no rashes or lesions noted and no wounds MDM MDM MDM Narrative Medical decision making narrative: CT the brain demonstrated no intracranial bleed or masses. White count 9.6 hemoglobin 12.6. Potassium elevated 5.4 in the setting of a BUN of 32 with a creatinine 1.6. This does appear off of her baseline. She notes that she has not been drinking as much fluids yesterday or today as she normally would. Her symptoms from the ankle down I think are probably a peripheral nerve issue rather than anything central. Her symptoms are almost fully resolved. She has no obvious motor deficit. The remaining symptoms appear to be sensory in nature. At this point patient will be discharged home. She is chronically anticoagulated due to paroxysmal A-fib. She is in a regular rhythm currently. Continue home medications. Lab Data Attestation: I reviewed the patient's lab results. Labs: Laboratory Results - last 24 hr 05/13/23 05/13/23 11:02 11:03 WBC 9.6 RBC 3.91 L Hgb 12.6 Hct 38.7 MCV 99.0 MCH 32.2 H MCHC 32.6 RDW Std Deviation 43.7 RDW Coeff of Kristy 12.1 Plt Count 271 MPV 9.1 Immature Gran % (Auto) 0.500 Neut % (Auto) 81.2 H Lymph % (Auto) 11.[address] [place] % (Auto) 5.8 Eos % (Auto) 0.6 Baso % (Auto) 0.3 Absolute Neuts (auto) 7.8 H Absolute Lymphs (auto) 1.12 Nucleated RBC % 0 Sodium 141 Potassium 5.4 H Chloride 108 H Carbon Dioxide 32.0 Anion Gap 1 L BUN 32 H Creatinine 1.60 H Estim Creat Clear Calc 24.22 Est GFR (MDRD) Af Amer 40 L Est GFR (MDRD) Non-Af 33 L BUN/Creatinine Ratio 20.0 Glucose 111 H Calcium 9.6 Radiography Diagnostic Testing: Clinical Impression(s) from Imaging Studies Brain CT 05/13/23 10:43 IMPRESSION: No acute intracranial process identified. Mild chronic involutional and white matter changes. Electronically Signed: Galilea Rojas MD at 11:47 EST Reading Location ID and State: [facility] / [place] Tel , Service support , Discharge Plan Triage Chief Complaint: Lower Extremity Injury ED Provider: August Anna Dx/Rx/DC Orders Clinical Impression: Paresthesia of right foot, CKD (chronic kidney disease), Peripheral neuropathy, Acute hyperkalemia Instructions: ED Neuropathy, Peripheral, ED Paraesthesias Prescriptions: No Action biotin 1,000 mcg Tablet,Chewable 1,000 mcg PO DAILY oxycodone [OxyIR] 5 mg Capsule 5 mg PO Q6H PRN (Reason: Pain 1-10) hydrocortisone 2.5 % Cream With Applicator 1 ea [place] 0600,2200 triamcinolone acetonide 0.025 % Cream 1 applic TOPICAL BID PRN (Reason: itchy) ergocalciferol (vitamin D2) 1,000 unit Capsule 1,000 unit PO DAILY metoprolol tartrate 25 mg tablet 12.5 mg PO BID Qty: 20 0RF Rx Instructions: 1/2 tab every 12H ferrous sulfate 324 mg (65 mg iron) tablet,delayed release (DR/EC) 324 mg PO DAILY Qty: 30 0RF Rx Instructions: take with food and 500 mg Vitamin C acetaminophen 325 mg capsule 650 mg PO Q6H PRN (Reason: fever or pain) Qty: 1 0RF levothyroxine 75 mcg Tablet 75 mcg PO DAILY Qty: 30 0RF Rx Instructions: Take in the AM with water on empty stomach. No eating or drinking for 30 min. pantoprazole 40 mg Tablet,Delayed Release (Dr/Ec) 40 mg PO DAILY Qty: 30 0RF Eliquis 2.5 mg tablet 2.5 mg PO BID Qty: 60 0RF Primary Care Provider: Reddy Crowe Referrals: Reddy Crowe MD [Primary Care Provider] - 1-2 Weeks Activity Restrictions/Additional Instructions: As discussed your potassium today is 5.4 and your creatinine (kidney marker) has increased to 1.6. This may be in part due to hydration. I would recommend ensuring that you are drinking plenty of water and follow-up with your doctor for recheck of these levels. Please return to the emergency department if any new or worsening symptoms. Disposition Disposition: Home, Self Care
[2023-05-13 11:09] LABS: Absolute Lymphocyte Count 1.12 X10^3/uL (0.83-4.51); Absolute Neutrophil Count 7.8 X10^3/uL (2.0-7.7); Basophil# 0.03 X10^3/uL; Basophil% 0.3 % (0-1); Eosinophil# 0.06 X10^3/uL; Eosinophils% 0.6 % (0-5); Hematocrit 38.7 % (37-47); Hemoglobin 12.6 g/dL (12.0-15.0); Lymphocyte # 1.12 X10^3/ul (0.83-4.51); Lymphocyte % 11.6 % (19-41); Mean Corp Hgb Conc 32.6 g/dL (32-36); Mean Corpuscular Hgb 32.2 pg (27.0-32.0); Mean Platelet Vol. 9.1 fl (6.2-12.0); Monocyte# 0.56 X10^3/uL; Monocyte% 5.8 % (0-10); NRBC Flagged by Analyzer 0 % (0-5); Neutrophil # 7.81 X10^3/uL (2.7-7.7); Neutrophil % 81.2 % (47-70); Platelet Count 271 K/mm3 (150-450); RBC Distribution Width CV 12.1 % (11.6-14.6); RBC Distribution Width SD 43.7 fl (35.1-43.9); Red Blood Count 3.91 M/mm3 (4.2-5.4); White Blood Count 9.6 K/mm3 (4.4-11.0)
[2023-05-13 11:22] LABS: Anion Gap 1 (5-15); BUN 32 mg/dL (7-18); Calcium,Total 9.6 mg/dL (8.5-10.1); Chloride 108 mmol/L (98-107); EST Glomerular Filtration Rate 33 mL/min (>60); Est Glom Filt Rate - Afr Amer 40 mL/min (>60); Estimated Creatinine Clearance 24.22 ml/min; Glucose 111 mg/dL (74-106); Potassium 5.4 mmol/L (3.5-5.1); Sodium Level 141 mmol/L (136-145)
== END 2023-05-13 12:33 | disposition home or self-care (01) ==
PROVIDERS: Emergency Provider Emergency Medicine; PCP Family Medicine; Visit Provider Emergency Medicine
DX: R20.2 Paresthesia of skin (principal); I48.0 Paroxysmal atrial fibrillation; N18.32 Chronic kidney disease, stage 3b; G62.9 Polyneuropathy, unspecified; E87.5 Hyperkalemia; E03.9 Hypothyroidism, unspecified; Z79.01 Long term (current) use of anticoagulants; Z79.890 Hormone replacement therapy; Z79.899 Other long term (current) drug therapy; Z87.891 Personal history of nicotine dependence; Z86.73 Personal history of transient ischemic attack (TIA), and cerebral infarction without residual deficits
CPT/HCPCS: 70450; 80048; 85025; 99283

== ENCOUNTER 2024-05-25 13:02 | Inpatient (IN) | payer MEDICARE, SELFPAY ==
[2024-05-25 13:03] VITALS: BP 130/68; PULSE 74; RESP 18; TEMP 36.6; O2SAT 98; BMI 29.9
[2024-05-25 14:06] LABS: Absolute Lymphocyte Count 1.38 X10^3/uL (0.83-4.51); Absolute Neutrophil Count 3.7 X10^3/uL (2.0-7.7); Basophil# 0.02 X10^3/uL; Basophil% 0.3 % (0-1); Eosinophil# 0.12 X10^3/uL; Eosinophils% 2.1 % (0-5); Hematocrit 39.2 % (37-47); Hemoglobin 12.7 g/dL (12.0-15.0); Lymphocyte # 1.38 X10^3/ul (0.83-4.51); Lymphocyte % 23.7 % (19-41); Mean Corp Hgb Conc 32.4 g/dL (32-36); Mean Corpuscular Hgb 31.7 pg (27.0-32.0); Mean Corpuscular Volume 97.8 fL (81-99); Mean Platelet Vol. 9.7 fl (6.2-12.0); Monocyte# 0.54 X10^3/uL; Monocyte% 9.3 % (0-10); NRBC Flagged by Analyzer 0 % (0-5); Neutrophil # 3.74 X10^3/uL (2.7-7.7); Neutrophil % 64.3 % (47-70); Platelet Count 203 K/mm3 (150-450); RBC Distribution Width CV 12.7 % (11.6-14.6); RBC Distribution Width SD 45.7 fl (35.1-43.9); Red Blood Count 4.01 M/mm3 (4.2-5.4); White Blood Count 5.8 K/mm3 (4.4-11.0)
[2024-05-25 14:44] LABS: Anion Gap 5 (5-15); BUN 24 mg/dL (7-18); BUN/Creat Ratio 16.6 RATIO (10-20); Calcium,Total 8.7 mg/dL (8.5-10.1); Chloride 110 mmol/L (98-107); Creatinine, Serum 1.45 mg/dL (0.55-1.02); EST Glomerular Filtration Rate 37 mL/min (>60); Est Glom Filt Rate - Afr Amer 45 mL/min (>60); Estimated Creatinine Clearance 31.24 ml/min; Glucose 93 mg/dL (74-106); Potassium 4.5 mmol/L (3.5-5.1); Sodium Level 138 mmol/L (136-145)
[2024-05-25 15:32] VITALS: BP 141/74; PULSE 61; RESP 18; O2SAT 98
[2024-05-25 15:33] LABS: Mucous, Urine 0 SEEN /hpf (<or=2+)
[2024-05-25 15:37] LABS: Color, Urine Yellow (Yellow); Glucose, Dipstick Normal (Normal); Ketone-Dipstick Negative (Negative); Leukocyte Esterase-Dipstick 100 /ul (Negative); Nitrite-Dipstick Negative (Negative); Occult Blood-Urine 10 /ul (Negative); Protein-Dipstick 30 mg/dl (Negative); Urine Bilirubin Dipstick Negative (Negative); Urine Clarity Sl. Cloudy (Clear); Urine Urobilinogen Normal (Normal)
[2024-05-25 15:58] LABS: Bacteria 2+ /hpf (None Seen); Hyaline Cast 0-5 SEEN /lpf (0-5); Red Blood Cells-Urine 0-5 SEEN /hpf (0-5); Squamous Epithelial Cells - UA 0-5 SEEN /hpf (5-10)
[2024-05-25 15:59] LABS: White Blood Cells 10-25 SEEN /hpf (0-5)
--- NOTE | 2024-05-25 16:27 | CT_ITS ---
EXAM: CT HEAD WITHOUT INTRAVENOUS CONTRAST CLINICAL INDICATION: Confusion TECHNIQUE: Multiple axial images were obtained of the head without intravenous contrast. This CT exam was performed using one or more of the following dose reduction techniques: automated exposure control, adjustment of the mA and/or kV according to patient size, and/or use of iterative reconstruction technique. COMPARISON: 05/13/2023 FINDINGS: BRAIN AND EXTRA-AXIAL SPACES: There is a new hypodensity seen in the right frontal lobe compatible with acute to subacute ischemia. No hemorrhage is identified. No intracranial mass or mass effect. Posterior fossa structures are unremarkable. Ventricles are appropriate for age. No hydrocephalus. Basal cisterns are patent. BONES/JOINTS: Unremarkable. No discrete lytic or blastic abnormalities. SINUSES: Unremarkable as visualized. Clear. MASTOID AIR CELLS: Unremarkable. Clear. ORBITS: Visualized globes, extraocular muscles, optic nerves and retrobulbar fat appear unremarkable. CT/Brain/Head without Contrast IMPRESSION: New focus of hypodensity in the right frontal lobe adjacent to the right frontal horn compatible with acute to subacute ischemia. No hemorrhage is identified. Electronically Signed: Jeferson Pepe MD at 17:22 EST ,
[2024-05-25 17:00] VITALS: BP 144/72; PULSE 73; RESP 18; O2SAT 100
[2024-05-25] MEDS: Ceftriaxone 1 GM/50 ML BAG IV (17:12)
[2024-05-25 17:28] LABS: Lactic Acid 0.9 mmol/L (0.4-1.9)
[2024-05-25 19:00] VITALS: BP 125/81; O2SAT 100
[2024-05-25 19:15] VITALS: BP 125/99; PULSE 73; RESP 19; TEMP 36.7; O2SAT 97
--- NOTE | 2024-05-25 19:18 | EX.ED.DYSGE1 ---
HPI History of Present Illness Chief Complaint: Confusion Informant: patient Onset/Context/Timing Onset: Days (4) Context: Gradual Onset Timing: Waxes and wanes Quality: Confusion Location: Generalized Worsened by: Nothing Relieved by: Nothing Narrative Narrative: Patient presents with some confusion that has been getting worse over the past 4 days. Family states it has been waxing and waning. Family states nothing makes it better and nothing makes it worse. Patient admits to some mild weakness. Patient denies any nausea or vomiting. Patient denies any fevers or chills. Patient denies any chest pain or shortness of breath. Patient does admit to a mild headache. [facility] Medical History Osteopenia History of right MCA stroke Chronic renal failure (CRF), stage 3b Allergic rhinitis Hypothyroidism Atrial fibrillation Hypothyroidism Atrial fibrillation Home Medications ?Medication ?Instructions ?Recorded ?Last Taken ?Type biotin 1,000 mcg chewable tablet 1,000 mcg PO DAILY Check with 11/11/21 Unknown History primary doctor hydrocortisone 2.5 % rectal cream 1 ea [place] 0600,2200 hemorrhoids 10/05/22 Unknown History with applicator oxycodone 5 mg capsule 5 mg PO Q6H PRN Pain 1-10 10/05/22 Unknown History triamcinolone acetonide 0.025 % 1 applic topical BID PRN itchy 10/05/22 Unknown History topical cream acetaminophen 325 mg capsule 650 mg (2 x 325 mg) PO Q6H PRN 10/26/22 Unknown Rx fever or pain #1 cap apixaban 2.5 mg tablet (Eliquis) 2.5 mg PO BID A-Fib #60 tabs 10/26/22 Unknown Rx levothyroxine 75 mcg tablet 75 mcg PO DAILY hypothyroid #30 10/26/22 Unknown Rx tabs metoprolol tartrate 25 mg tablet 12.5 mg (1/2 x 25 mg) PO BID #20 10/26/22 Unknown Rx tabs pantoprazole 40 mg tablet,delayed 40 mg PO DAILY Check with primary 10/26/22 Unknown Rx release doctor #30 tabs [id number] PO 05/25/24 Unknown History Allergy/AdvReac Type Severity Reaction Status Date / Time nitrofurantoin (From Allergy Hives Verified 05/25/24 13:03 Macrodantin) benzonatate (From Tessalon AdvReac Other Verified 05/25/24 13:03 [place]) Family History Father CAD (coronary artery disease) Diabetes Brother Multiple sclerosis Brother ALS (amyotrophic lateral sclerosis) Grandfather CAD (coronary artery disease) Surgical History Status post open reduction with internal fixation (ORIF) of fracture of ankle S/P skin biopsy History of blepharoplasty History of hernia surgery History of eye surgery History of mandibular surgery Social History household members: none Smoking Status: Former smoker alcohol intake: current alcohol intake frequency: 0-2 drinks per day Alcohol type: wine details: 2 glasses of wine every 2 weeks. substance use type: does not use ROS ROS ED Constitutional Constitutional ED: Denies chills or fever(s) Eyes Eyes: Denies blurry vision or change in vision ENT ENT ED: Denies rhinorrhea or sore throat Cardiovascular Cardiovascular: Denies chest pain or palpitations Respiratory/Chest Respiratory/Chest: Denies cough or dyspnea Gastrointestinal Gastrointestinal: Denies nausea or vomiting Genitourinary Genitourinary ED: Denies dysuria or hematuria Musculoskeletal Musculoskeletal: Denies back pain or neck pain Integumentary Denies abscess or rash Neurologic Neurologic: Denies headache(s) or weakness Allergic/Immunologic Allergic/Immunologic ED: Denies mouth swelling or urticaria EXAM Physical Exam Const Vital Signs: 05/25/24 13:03 05/25/24 15:32 05/25/24 17:00 Temperature 97.8 F Temperature Source Temporal Pulse Rate 74 61 73 Respiratory Rate 18 18 18 Blood Pressure 130/68 H 141/74 H 144/72 H Blood Pressure Mean 88 96 96 Pulse Ox 98 98 100 Oxygen Delivery Method Room Air Room Air Room Air 05/25/24 19:00 05/25/24 19:15 Temperature 98.1 F Temperature Source Pulse Rate 73 Respiratory Rate 19 H Blood Pressure 125/81 H 125/99 H Blood Pressure Mean 95 107 Pulse Ox 100 97 Oxygen Delivery Method Positive well nourished and well developed General Appearance ED: well developed and NAD HEENT Reports moist mucous membranes Neck supple and no JVD Resp normal respiratory effort and clear to auscultation bilaterally Cardio regular rate and regular rhythm GI non-tender and non-distended Palpation: soft Extremity General Extremety ED: Negative for edema or tenderness General Extremity: Negative for edema Neuro CN's II-XII intact bilaterally and no sensory deficits noted Sensorium / Orientation: alert Motor Exam: strength 5/5 throughout MDM MDM MDM Narrative Medical decision making narrative: Differential diagnosis includes stroke, urinary tract infection, pneumonia, bronchitis, sepsis, anemia, and electrolyte abnormality. CT scan of the brain will be obtained to assess for stroke. CBC will be obtained to assess for leukocytosis and anemia. Basic metabolic profile will be obtained to assess for electrolyte abnormality and renal function. Urinalysis will be obtained to assess for urinary tract infection and hematuria. Serum lactate will be obtained to assess for sepsis. Urine culture will be obtained to assess for urinary tract infection. Blood cultures will be obtained to assess for sepsis. Lab Data Attestation: I reviewed the patient's lab results. Lab results narrative: CBC was reviewed and was within normal limits. Basic metabolic profile was reviewed. BUN was slightly elevated at 24 and creatinine was 1.45. Serum lactate was reviewed and was normal at 0.9. Urinalysis was reviewed. Leukocyte esterase was 100 with 10-25 white blood cells and 2+ bacteria. Labs: Laboratory Results - last 24 hr 05/25/24 05/25/24 05/25/24 14:00 15:30 16:50 WBC 5.8 RBC 4.01 L Hgb 12.7 Hct 39.2 MCV 97.8 MCH 31.7 MCHC 32.4 RDW Std Deviation 45.7 H RDW Coeff of Kristy 12.7 Plt Count 203 MPV 9.7 Immature Gran % (Auto) 0.300 Neut % (Auto) 64.3 Lymph % (Auto) 23.7 [place] % (Auto) 9.3 Eos % (Auto) 2.1 Baso % (Auto) 0.3 Absolute Neuts (auto) 3.7 Absolute Lymphs (auto) 1.38 Nucleated RBC % 0 Sodium 138 Potassium 4.5 Chloride 110 H Carbon Dioxide 23.0 Anion Gap 5 BUN 24 H Creatinine 1.45 H Estim Creat Clear Calc 31.24 Est GFR (MDRD) Af Amer 45 L Est GFR (MDRD) Non-Af 37 L BUN/Creatinine Ratio 16.6 Glucose 93 Lactic Acid 0.9 Calcium 8.7 Urine Color Yellow Urine Clarity Sl. Cloudy Urine pH 5.0 Ur Specific [place] 1.020 Urine Protein 30 H Urine Glucose (UA) Normal Urine Ketones Negative Urine Occult Blood 10 H Urine Nitrite Negative Urine Bilirubin Negative Urine Urobilinogen Normal Ur Leukocyte Esterase 100 H Urine RBC 0-5 SEEN Urine WBC 10-25 SEEN Ur Squamous Epith Cells 0-5 SEEN Urine Bacteria 2+ Hyaline Casts 0-5 SEEN Urine Mucus 0 SEEN Radiography Diagnostic Testing: Clinical Impression(s) from Imaging Studies Brain CT 05/25/24 16:27 IMPRESSION: New focus of hypodensity in the right frontal lobe adjacent to the right frontal horn compatible with acute to subacute ischemia. No hemorrhage is identified. Electronically Signed: Jeferson Pepe MD at 17:22 EST , CT scan of the brain was obtained. There is a new focus of hypodensity in the right frontal lobe compatible with acute to subacute ischemia. There is no intracranial bleeding noted. This was interpreted by the radiologist and was also independently reviewed by myself. Management Discussion w/another healthcare provider: Hospitalist Treatment and Re-Evaluation :: Patient was given a dose of Rocephin here. Patient and family were advised of the findings. Because of the stroke findings on CT scan, patient will need to be admitted to the hospital for further stroke workup. Case was discussed with the hospitalist. She will admit the patient to PCU for observation. Patient and family understand and are agreeable with the plan. All questions were answered. Discharge Plan Triage Chief Complaint: Confusion ED Provider: Jasson Garcia Dx/Rx/DC Orders Clinical Impression: Acute ischemic stroke, Urinary tract infection Prescriptions: No Action biotin 1,000 mcg Tablet,Chewable 1,000 mcg PO DAILY oxycodone [OxyIR] 5 mg Capsule 5 mg PO Q6H PRN (Reason: Pain 1-10) hydrocortisone 2.5 % Cream With Applicator 1 ea [place] 0600,2200 triamcinolone acetonide 0.025 % Cream 1 applic TOPICAL BID PRN (Reason: itchy) metoprolol tartrate 25 mg tablet 12.5 mg PO BID Qty: 20 0RF Rx Instructions: 1/2 tab every 12H acetaminophen 325 mg capsule 650 mg PO Q6H PRN (Reason: fever or pain) Qty: 1 0RF levothyroxine 75 mcg Tablet 75 mcg PO DAILY Qty: 30 0RF Rx Instructions: Take in the AM with water on empty stomach. No eating or drinking for 30 min. pantoprazole 40 mg Tablet,Delayed Release (Dr/Ec) 40 mg PO DAILY Qty: 30 0RF Eliquis 2.5 mg tablet 2.5 mg PO BID Qty: 60 0RF [id number] [PreserVision AREDS 2 Plus MV] PO Primary Care Provider: Reddy Crowe Referrals: Reddy Crowe MD [Primary Care Provider] - Print Language: Wallisian Disposition Disposition: Acute Care Hospital [facility]
--- NOTE | 2024-05-25 19:29 | PCM.HP.STD ---
HPI - General General Date of Admission: 05/25/24 Date of Service: 05/25/24 Chief Complaint: Altered MS HPI Narrative NAOMI HARRISON, is a 83 F who presented to the emergency department at [facility] on 05/25/2024 with a chief complaint of altered mental status. Family reports her mental status changes were initially noted about 4 days ago. This seems to be waxing and waning. She remains alert and oriented but it has been little things that she is not remembering more short-term memory type concerns. The patient does admit to have some mild weakness and has a history of stroke in the right MCA remotely. She is anticoagulated at baseline on Eliquis 2.5 mg daily with dose reduction for age greater than 80 and serum creatinine greater than 1.5. She has had no fever or chills, no chest pain or shortness of breath she admitted to having a mild headache but has no other symptoms. She denies any dysuria or urinary frequency. On my exam she was alert and oriented x 3. Vital signs on presentation showed a temperature of 97.8, heart rate 74, respiratory 18, blood pressure 130/68 and oxygen saturations were 98% on room air. CBC is unremarkable. Chemistry panel shows normal electrolytes with elevated serum creatinine 1.45 consistent with her baseline CKD (baseline serum creatinine 1.4-1.6). Lactic acid was normal at 0.9. UA is somewhat suggestive of infection and some dehydration with a specific gravity of 1.02, positive leuk esterase, white cells and bacteria was present. With her confusion CT of the brain was performed and a new foci of hypodensity was noted in the right frontal lobe adjacent to the right frontal horn compatible with acute on subacute ischemic stroke. Patient has been compliant with her anticoagulation and has no other symptoms suggestive of stroke. Foci of stroke however could explain some of her confusion. [facility] Medical History Osteopenia History of right MCA stroke Chronic renal failure (CRF), stage 3b Allergic rhinitis Hypothyroidism Atrial fibrillation Hypothyroidism Atrial fibrillation Home Medications ?Medication ?Instructions ?Recorded ?Last Taken ?Type biotin 1,000 mcg chewable tablet 1,000 mcg PO DAILY Check with 11/11/21 05/25/24 History primary doctor oxycodone 5 mg capsule 5 mg PO Q6H PRN Pain 1-10 10/05/22 Unknown History acetaminophen 325 mg capsule 650 mg (2 x 325 mg) PO Q6H PRN 10/26/22 Unknown Rx fever or pain #1 cap apixaban 2.5 mg tablet (Eliquis) 2.5 mg PO BID A-Fib #60 tabs 10/26/22 Unknown Rx levothyroxine 75 mcg tablet 75 mcg PO DAILY hypothyroid #30 10/26/22 Unknown Rx tabs metoprolol tartrate 25 mg tablet 12.5 mg (1/2 x 25 mg) PO BID #20 10/26/22 Unknown Rx tabs pantoprazole 40 mg tablet,delayed 40 mg PO DAILY Check with primary 10/26/22 Unknown Rx release doctor #30 tabs [id number] PO 05/25/24 05/25/24 History Allergy/AdvReac Type Severity Reaction Status Date / Time nitrofurantoin (From Allergy Hives Verified 05/25/24 21:04 Macrodantin) benzonatate (From Tessalon AdvReac Other Verified 05/25/24 21:04 Perles) Family History Father CAD (coronary artery disease) Diabetes Brother Multiple sclerosis Brother ALS (amyotrophic lateral sclerosis) Grandfather CAD (coronary artery disease) Surgical History Status post open reduction with internal fixation (ORIF) of fracture of ankle S/P skin biopsy History of blepharoplasty History of hernia surgery History of eye surgery History of mandibular surgery Social History household members: none Smoking Status: Former smoker alcohol intake: current alcohol intake frequency: 0-2 drinks per day Alcohol type: wine details: 2 glasses of wine every 2 weeks. substance use type: does not use ROS Constitutional Constitutional: Denies anorexia, change in weight, chills, fatigue, fever(s), malaise, night sweats, weakness or other Eyes Eyes: Denies blurry vision, change in eye color, change in vision, discharge from eye(s), double vision, erythema, eye pain, loss of vision or other ENT HEENT: Denies abnormal hearing, dysphagia, ear pain, epistaxis, headache(s), hearing loss, nasal congestion, nasal discharge, post nasal drip, sinus pressure, sore throat or other Cardiovascular Cardiovascular: Denies chest pain, claudication, dyspnea on exertion, edema, lightheadedness, orthopnea, palpitations, paroxysmal nocturnal dyspnea, rapid heart rate, syncope or other Respiratory/Chest Respiratory/Chest: Denies cough, dyspnea, excessive phlegm production, hemoptysis, productive cough, shortness of breath at rest, shortness of breath with exertion, wheezing or other Gastrointestinal Gastrointestinal: Denies abdominal pain, coffee ground emesis, constipation, diarrhea, dyspepsia, hematemesis, hematochezia, loose stools, melena, nausea, vomiting or other Genitourinary Genitourinary: Denies burning urination, difficulty urinating, dysuria, hematuria, nocturia, urinary frequency, urinary hesitancy, urinary incontinence, urinary urgency or other Musculoskeletal Musculoskeletal: Denies arthralgias, back pain, joint pain, joint stiffness, joint swelling, myalgias, neck pain or other Neurologic Neurologic: Reports confusion; Denies abnormal gait, abnormal speech, disequilibrium, dizziness, focal weakness, headache(s), numbness, paresthesias, seizure-like activity, seizures, syncope, tingling, tremor(s) or other Psychiatric Psychiatric: Denies anxiety, depression, homicidal ideation, suicidal ideation or other Endocrine Endocrinology: Denies change in body appearance, cold intolerance, excessive sweating, heat intolerance, polydipsia, polyuria or other Hematologic/Lymphatic Hematologic/Lymphatic: Denies anemia, easy bleeding, easy bruising, lymphadenopathy or other Allergic/Immunologic Allergic/Immunologic: Denies rhinitis, hives, eczemia, asthma or other Vital Signs Vital Signs Vital Signs: 05/25/24 13:03 05/25/24 15:32 05/25/24 17:00 Temperature 97.8 F Temperature Source Temporal Pulse Rate 74 61 73 Respiratory Rate 18 18 18 Blood Pressure 130/68 H 141/74 H 144/72 H Blood Pressure Mean 88 96 96 Pulse Ox 98 98 100 Oxygen Delivery Method Room Air Room Air Room Air 05/25/24 19:00 05/25/24 19:15 Temperature 98.1 F Temperature Source Pulse Rate 73 Respiratory Rate 19 H Blood Pressure 125/81 H 125/99 H Blood Pressure Mean 95 107 Pulse Ox 100 97 Oxygen Delivery Method Weight Weight: 80.558 kg Body Mass Index (BMI) 29.9 Physical Exam Const alert, oriented x3, no apparent distress, healthy appearing and well nourished Constitutional Narrative: Overweight, elderly, white female, sitting up in bed, daughter at bedside, appears comfortable, nontoxic General Appearance: cooperative HEENT normocephalic, head/scalp atraumatic, hearing grossly normal bilaterally and moist oral mucous membranes HEENT Narrative: Mallampati 2, no thrush Eyes EOMs intact bilaterally and conjunctivae normal Eyes Narrative: No scleral icterus Neck no lymphadenopathy and supple Neck Narrative: Trachea midline, no thyroid enlargement Resp normal respiratory effort, no retractions, no use of accessory muscles and clear to auscultation bilaterally Auscultation: Negative for rales, rhonchi or wheezes Cardio regular rate, regular rhythm, S1 normal heart sound, S2 normal heart sound, no murmurs, no rub, no gallops and no clicks GI normal to inspection, nondistended, normoactive bowel sounds, soft to palpation and non-tender Extremity no clubbing, cyanosis or edema Extremity Narrative: 2+ pedal pulses, 2+ radial pulses Neuro oriented x3, CN's II-XII intact bilaterally, moves all extremities and no focal motor deficits Speech: speech normal Psych affect normal Psych Narrative: Very pleasant, interacts appropriately Results Lab / Micro Data 05/25/24 14:00 05/25/24 14:00 Labs: Laboratory Results - last 24 hr 05/25/24 14:00: WBC 5.8, RBC 4.01 L, Hgb 12.7, Hct 39.2, MCV 97.8, MCH 31.7, MCHC 32.4, RDW Std Deviation 45.7 H, RDW Coeff of Kristy 12.7, Plt Count 203, MPV 9.7, Immature Gran % (Auto) 0.300, Neut % (Auto) 64.3, Lymph % (Auto) 23.7, [place] % (Auto) 9.3, Eos % (Auto) 2.1, Baso % (Auto) 0.3, Absolute Neuts (auto) 3.7, Absolute Lymphs (auto) 1.38, Nucleated RBC % 0, Sodium 138, Potassium 4.5, Chloride 110 H, Carbon Dioxide 23.0, Anion Gap 5, BUN 24 H, Creatinine 1.45 H, Estim Creat Clear Calc 31.24, Est GFR (MDRD) Af Amer 45 L, Est GFR (MDRD) Non-Af 37 L, BUN/Creatinine Ratio 16.6, Glucose 93, Calcium 8.7 05/25/24 15:30: Urine Color Yellow, Urine Clarity Sl. Cloudy, Urine pH 5.0, Ur Specific [place] 1.020, Urine Protein 30 H, Urine Glucose (UA) Normal, Urine Ketones Negative, Urine Occult Blood 10 H, Urine Nitrite Negative, Urine Bilirubin Negative, Urine Urobilinogen Normal, Ur Leukocyte Esterase 100 H, Urine RBC 0-5 SEEN, Urine WBC 10-25 SEEN, Ur Squamous Epith Cells 0-5 SEEN, Urine Bacteria 2+, Hyaline Casts 0-5 SEEN, Urine Mucus 0 SEEN 05/25/24 16:50: Lactic Acid 0.9 Imaging Radiology Impression Brain CT 05/25/24 16:27 IMPRESSION: New focus of hypodensity in the right frontal lobe adjacent to the right frontal horn compatible with acute to subacute ischemia. No hemorrhage is identified. Electronically Signed: Jeferson Pepe MD at 17:22 EST , Assessment & Plan Assessment/Plan (1) Acute ischemic stroke: (2) Abnormal urinalysis: (3) Toxic metabolic encephalopathy: PLAN: Plan Acute right frontal lobe ischemic stroke -Patient out of the window by days for TNK -Stroke order set with NIH's per protocol -Check MRI -Will check MRA of head and neck -Continue home Eliquis -Start aspirin 81 mg daily -Will hold off on Plavix initiation due to the fact that she is already on Eliquis and would like to avoid triple therapy to avoid GI complications -Hold blood pressure medication right now to allow some for permissive hypertension -Check lipids -Start atorvastatin 40 mg -Check echocardiogram -Neurology consultation Abnormal urinalysis -Patient is really fairly asymptomatic -Highly doubt this is contributing to her altered clinical status -Will empirically continue ceftriaxone -Cultures are pending Toxic/metabolic encephalopathy -Very minimal -Alert and oriented x 3 for me but daughter states there were little things so she was missing that were not her baseline -Monitor for improvement Hypothyroidism -Continue home levothyroxine Can check TSH History of right MCA stroke -Treatment as noted above Atrial fibrillation -Currently in sinus rhythm -Continue anticoagulation -Restart metoprolol if needed -Dose is low DVT prophylaxis -Continue Eliquis CODE STATUS -per discussion with patient on admission DNR CCA okay for short-term intubation and this was discussed with the patient by her daughters at the bedside Charges/Coding Visit Charges Inpatient E&M: 35175 Init Hosp L2
--- NOTE | 2024-05-25 19:41 | ECHOD_ITS ---
Reason For Study: TIA/CVA Procedure This was a 2D Doppler, Color Flow transthoracic echocardiogram. Exam performed portable in patient room. Left Ventricle Normal LV size. Left ventricular systolic function is normal. The left ventricular ejection fraction is 60 %. Stage 1 diastolic dysfunction. No regional wall motion abnormalities noted. Right Ventricle Normal RV size. Normal systolic function. Atria Normal left atrium. Normal right atrium. Mitral Valve Normal mitral valve. Tricuspid Valve Normal tricuspid valve. Aortic Valve Trisinus/trileaflet aortic valve. Pulmonic Valve Normal pulmonic valve. Great Vessels Normal aortic root. The pulmonary artery is normal size. Inferior vena cava collapse with respiration. Pericardium/Pleural No pericardial effusion. MMode/2D Measurements & Calculations LVIDd: 4.7 cm IVSd: 0.90 cm LVOT diam: 2.0 cm LVIDs: 2.9 cm LVPWd: 0.86 cm LVOT area: 3.0 cm2 RVDd: 3.4 cm FS: 38.0 % asc Aorta Diam: 3.3 cm LAV(MOD-bp): 61.0 ml LVAd ap4: 19.7 cm2 LAV(MOD-bp) Indexed: 33.2 ml/m2 LVLd ap4: 7.4 cm LAV(MOD-sp2): 65.7 ml EDV(MOD-sp4): 43.7 ml LAV(MOD-sp4): 55.8 ml EDV(sp4-el): 44.8 ml LVAs ap4: 9.6 cm2 LVLs ap4: 6.2 cm ESV(MOD-sp4): 13.1 ml ESV(sp4-el): 12.7 ml EF(MOD-sp4): 69.9 % EF(sp4-el): 71.6 % LVAd ap2: 17.8 cm2 SV(MOD-sp4): 30.5 ml SV(MOD-sp2): 23.5 ml LVLd ap2: 6.8 cm SI(MOD-sp4): 16.6 ml/m2 SI(MOD-sp2): 12.8 ml/m2 EDV(MOD-sp2): 38.7 ml EDV(sp2-el): 39.4 ml LVAs ap2: 10.4 cm2 LVLs ap2: 5.8 cm ESV(MOD-sp2): 15.3 ml ESV(sp2-el): 15.8 ml EF(MOD-sp2): 60.5 % SV(sp4-el): 32.1 ml Ao sinus diam: 3.[address] Junction: 2.5 cm LA dimension(2D): 3.3 cm LA A4 area: 20.3 cm2 RA A4 area: 14.1 cm2 TAPSE: 1.9 cm Time Measurements MV dec time: 0.25 sec Doppler Measurements & Calculations MV E max robles: 69.2 cm/sec Lat Peak E' Robles: 10.0 cm/sec Med Peak E' Robles: 7.2 cm/sec MV A max robles: 99.2 cm/sec E/E' lat: 6.9 E/E' med: 9.6 MV E/A: 0.70 MV dec slope: 277.9 cm/sec2 Ao V2 max: 121.0 cm/sec LV V1 max: 88.5 cm/sec Ao max P.9 mmHg LV V1 max P.1 mmHg Ao V2 mean: 86.2 cm/sec LV V1 mean P.1 mmHg Ao mean P.2 mmHg LV V1 mean: 69.3 cm/sec Ao V2 VTI: 31.7 cm LV V1 VTI: 25.1 cm AV (velocity ratio): 0.79 KAYLYNN(I,D): 2.4 cm2 KAYLYNN(V,D): 2.2 cm2 SV(LVOT): 76.0 ml PA V2 max: 73.7 cm/sec ECHO/Echo Complete Interpretation Summary Normal LV size. Left ventricular systolic function is normal. The left ventricular ejection fraction is 60 %. Stage 1 diastolic dysfunction. Ordering Physician: Audra Leal Referring Physician: MD Sebastien Reddy Performed By: Cris Ramsey, ONEAL
--- NOTE | 2024-05-25 19:58 | CASEMGMT ---
Care Management Face to Face with patient for initial transition planning/care coordination assessment in the ED. This display card writer introduced self and role at [facility]. Patient lying in bed, alert and oriented; patient?s daughter, Consuelo, bedside. Patient willing to participate in assessment and is able to answer all questions appropriately. Patient gave permission to speak in front of Consuelo. Care providers, pharmacy, and demographics verified. Admitting Diagnosis: acute ischemic stroke, abnormal urinalysis, toxic metabolic encephalopathy Other diagnosis history: chronic renal failure, atrial fibrillation, hypothyroidism PCP: Dr. Crowe Specialists: Dr. Fall, truck chauffeur at . Dr. Pritchard, tree faller at . Preferred Pharmacy: [facility] in [place] Insurance: [employer] Medicare Prescription Benefit: yes Living Will/HPOA: yes, daughter Consuelo is listed. Patient?s daughter stated being able to bring in a copy of patient?s advance directives. LNOK: daughter, Consuelo, and son, Larry. Son lives in [place]; daughter lives in [place]. Living Arrangements: one story home with two steps to enter. There is a basement, but patient reports not having to go downstairs often. Patient reports being independent with all ADLs. Transportation: patient drives DME: shower chair HHC: none SNF/Rehab: [facility] in September 2022 after having a broken ankle. Community Resources: none Behavioral Health History: none Patient goals: Patient wishes to discharge home and denies need for SNF or HHC at this time. Patient states she has no further needs or concerns. Disposition Plan: admission to acute; RN CM/SW to follow for discharge planning needs that may arise. Karen Marcus, RECORD CLERK SALESPERSON, BRIDGE DESIGN ENGINEER
--- NOTE | 2024-05-25 20:00 | CM.ED ---
Social work Patient states patient's daughter, Consuelo, is listed as HCPOA. Patient's daughter was bedside and stated being able to bring in patient's advance directives. Karen Marcus, UNIX CONSULTANT, INFORMAL WAITER/WAITRESS
[2024-05-25 20:16] LABS: Hemoglobin A1c 5.5 % (3.8-5.6)
[2024-05-25 20:49] VITALS: BP 140/66; PULSE 66; RESP 16; TEMP 36.7; O2SAT 99; BMI 29.5
[2024-05-25] MEDS: 0.9% Normal Saline (1000mL) 1,000 ML 100 ML IV (22:15)
[2024-05-25] MEDS: Atorvastatin Calcium 40 MG Tablet PO (22:16)
[2024-05-25] MEDS: APIXABAN 2.5 MG TABLET (WCH) PO (22:16)
[2024-05-25] MEDS: 0.9% Saline Lock 10 ML Syringe IV (22:17)
[2024-05-26] VITALS (8 sets, daily range): BP systolic 115–137; BP diastolic 60–74; PULSE 53–78; RESP 14–18; TEMP 36.2–37.1; O2SAT 94–98; BMI 29.5
[2024-05-26] MEDS: Acetaminophen 325 MG Tablet 650 MG PO (01:56)
[2024-05-26] MEDS: Levothyroxine 75 MCG Tablet PO (05:54)
[2024-05-26 07:03] LABS: Absolute Lymphocyte Count 1.59 X10^3/uL (0.83-4.51); Absolute Neutrophil Count 3.1 X10^3/uL (2.0-7.7); Basophil# 0.02 X10^3/uL; Basophil% 0.4 % (0-1); Eosinophil# 0.23 X10^3/uL; Eosinophils% 4.2 % (0-5); Hemoglobin 10.8 g/dL (12.0-15.0); Lymphocyte # 1.59 X10^3/ul (0.83-4.51); Lymphocyte % 28.9 % (19-41); Mean Corp Hgb Conc 31.8 g/dL (32-36); Mean Corpuscular Hgb 31.1 pg (27.0-32.0); Mean Platelet Vol. 9.8 fl (6.2-12.0); Monocyte# 0.58 X10^3/uL; Monocyte% 10.5 % (0-10); NRBC Flagged by Analyzer 0 % (0-5); Neutrophil # 3.08 X10^3/uL (2.7-7.7); Neutrophil % 55.8 % (47-70); Platelet Count 176 K/mm3 (150-450); RBC Distribution Width CV 12.6 % (11.6-14.6); RBC Distribution Width SD 45.3 fl (35.1-43.9); Red Blood Count 3.47 M/mm3 (4.2-5.4); White Blood Count 5.5 K/mm3 (4.4-11.0)
[2024-05-26 07:28] LABS: ALB/GLOB Ratio 0.8 RATIO (0.9-2.4); AST(SGOT) 12 U/L (15-37); Alanine Aminotransfer ALT/SGPT 17 U/L (13-56); Albumin, Serum 2.5 g/dL (3.2-5.0); Alkaline Phosphatase 79 U/L (45-117); Anion Gap 5 (5-15); BUN 26 mg/dL (7-18); Chloride 113 mmol/L (98-107); Cholesterol 210 mg/dL (200); Creatinine, Serum 1.37 mg/dL (0.55-1.02); EST Glomerular Filtration Rate 39 mL/min (>60); Est Glom Filt Rate - Afr Amer 48 mL/min (>60); Estimated Creatinine Clearance 32.57 ml/min; Globulin 3.1 g/dL (2.2-4.2); Glucose 112 mg/dL (74-106); High Density Lipoprotein 63 mg/dL; Magnesium 2.1 mg/dL (1.6-2.6); Protein, Total 5.6 g/dL (6.4-8.2); Sodium Level 140 mmol/L (136-145); Triglycerides 100 mg/dL; Very Low Density Lipoprotein 20 mg/dL (5-40)
--- NOTE | 2024-05-26 08:21 | STROKE.CONS ---
Assessment and Plan: Stroke Assessment/Plan NAOMI HARRISON is a 83 F with a history of Afib on eliquis, CKD, prior stroke who presents for evaluation of encephalopathy. Not a TNK or thrombectomy candidate. Neurological examination shows intact examination. Neuroimaging shows Right frontal stroke on CT. LDL: 127 Continue home Eliquis Started on ASA 81 - okay to continue for now Continue statin for target LDL <70 Please obtain stroke w/up MRI brain, MRA of head and neck or CTA, HbA1C, ECHO Permissive hypertension PT, OT evaluation Thanks for the consult. spent 70 min in evaluation of this patient. HPI Consult Data Date of Consult: 05/26/24 HPI Narrative HPI Narrative: NAOMI HARRISON, is a 83 F who presents who on 05/25/2024 with a chief complaint of altered mental status. Family reports her mental status changes were initially noted about 4 days ago. This seems to be waxing and waning. She remains alert and oriented but it has been little things that she is not remembering more short-term memory type concerns. The patient does admit to have some mild weakness and has a history of stroke in the right MCA remotely. She is anticoagulated at baseline on Eliquis 2.5 mg daily with dose reduction for age greater than 80 and serum creatinine greater than 1.5. She reports being confused on and has resolved. She has been compliant with medications. She has had no fever or chills, no chest pain or shortness of breath she admitted to having a mild headache but has no other symptoms. She denies any dysuria or urinary frequency. CT of the brain was performed and a new foci of hypodensity was noted in the right frontal lobe adjacent to the right frontal horn compatible with acute on subacute ischemic stroke. [facility] Medical History Osteopenia History of right MCA stroke Chronic renal failure (CRF), stage 3b Allergic rhinitis Hypothyroidism Atrial fibrillation Hypothyroidism Atrial fibrillation Home Medications ?Medication ?Instructions ?Recorded ?Last Taken ?Type biotin 1,000 mcg chewable tablet 1,000 mcg PO DAILY Check with 11/11/21 05/25/24 History primary doctor oxycodone 5 mg capsule 5 mg PO Q6H PRN Pain 1-10 10/05/22 Unknown History acetaminophen 325 mg capsule 650 mg (2 x 325 mg) PO Q6H PRN 10/26/22 Unknown Rx fever or pain #1 cap apixaban 2.5 mg tablet (Eliquis) 2.5 mg PO BID A-Fib #60 tabs 10/26/22 05/25/24 Rx levothyroxine 75 mcg tablet 75 mcg PO DAILY hypothyroid #30 10/26/22 05/25/24 Rx tabs metoprolol tartrate 25 mg tablet 12.5 mg (1/2 x 25 mg) PO BID #20 10/26/22 Unknown Rx tabs pantoprazole 40 mg tablet,delayed 40 mg PO DAILY Check with primary 10/26/22 Unknown Rx release doctor #30 tabs [id number] PO 05/25/24 05/25/24 History Allergy/AdvReac Type Severity Reaction Status Date / Time nitrofurantoin (From Allergy Hives Verified 05/25/24 21:04 Macrodantin) benzonatate (From Tessalon AdvReac Other Verified 05/25/24 21:04 Perles) Family History Father CAD (coronary artery disease) Diabetes Brother Multiple sclerosis Brother ALS (amyotrophic lateral sclerosis) Grandfather CAD (coronary artery disease) Surgical History Status post open reduction with internal fixation (ORIF) of fracture of ankle S/P skin biopsy History of blepharoplasty History of hernia surgery History of eye surgery History of mandibular surgery Social History household members: none Smoking Status: Former smoker alcohol intake: current alcohol intake frequency: 0-2 drinks per day Alcohol type: wine details: 2 glasses of wine every 2 weeks. substance use type: does not use Vital Signs Vital Signs Vital Signs: 05/25/24 13:03 05/25/24 15:32 05/25/24 17:00 Temperature 97.8 F Temperature Source Temporal Pulse Rate 74 61 73 Pulse Strength Respiratory Rate 18 18 18 Respiratory Effort Respiratory Depth Respiratory Pattern Blood Pressure 130/68 H 141/74 H 144/72 H Blood Pressure Mean 88 96 96 Blood Pressure Source Blood Pressure Position Blood Pressure Location Pulse Ox 98 98 100 Oxygen Delivery Method Room Air Room Air Room Air 05/25/24 19:00 05/25/24 19:15 05/25/24 20:49 Temperature 98.1 F 98.0 F Temperature Source Oral Pulse Rate 73 66 Pulse Strength Respiratory Rate 19 H 16 Respiratory Effort Respiratory Depth Respiratory Pattern Blood Pressure 125/81 H 125/99 H 140/66 H Blood Pressure Mean 95 107 90 Blood Pressure Source Monitor Blood Pressure Position Supine Blood Pressure Location Left Arm Pulse Ox 100 97 99 Oxygen Delivery Method Room Air 05/25/24 21:00 05/25/24 22:00 05/26/24 00:49 Temperature 98.0 F Temperature Source Temporal Pulse Rate 70 Pulse Strength Normal (2+) Respiratory Rate 16 Respiratory Effort Normal Respiratory Depth Normal Respiratory Pattern Normal Blood Pressure 126/64 H Blood Pressure Mean 84 Blood Pressure Source Monitor Blood Pressure Position Semi-Fowlers Blood Pressure Location Left Arm Pulse Ox 97 Oxygen Delivery Method Room Air Room Air 05/26/24 04:45 05/26/24 04:49 Temperature 97.4 F L Temperature Source Temporal Pulse Rate 60 Pulse Strength Respiratory Rate 14 Respiratory Effort Normal Respiratory Depth Normal Respiratory Pattern Normal Blood Pressure 115/62 Blood Pressure Mean 79 Blood Pressure Source Monitor Blood Pressure Position Supine Blood Pressure Location Left Arm Pulse Ox 94 Oxygen Delivery Method Room Air Room Air Weight Weight: 78.1 kg Body Mass Index (BMI) 29.5 NIHSS NIHSS Nursing Documentation NIHSS Nursing Documentation: NIHSS: Ischemic Stroke/TIA Start: 05/25/24 20:48 Text: For PCU Patients: NIH and Neuro Check every 4 Status: Active hours, PRN and with change in RN caregiver. Freq: [id number] Protocol: Activity Type Activity Date Activity User E-sign Co-sign Detail Recorded Client Recorded Date Recorded By Document 05/26/24 04:49 [id number] 05/26/24 05:11 05/26/24 04:49 NIH Stroke Scale [NIHSS] A score of 0 is normal or asymptomatic . Total possible score is 42. Inpatient: RN or Physician to activate a stroke alert for onset of new stroke symptoms or with NIHSS increase >/= 3 points. Following change in neurological status, NIHSS will be performed per physician order or more frequently PRN. -1a. Level of Consciousness Alert; keenly responsive -1b. LOC Questions Answers BOTH questions correctly. -1c. LOC Commands Performs both tasks correctly . -2. Best Gaze Normal -3. Visual No visual loss -4. Facial Palsy Normal symmetrical movements -5a. Left Arm No drift; arm holds 90 (or 45 ) degrees for full 10 seconds -5b. Right Arm No drift; arm holds 90 (or 45 ) degrees for full 10 seconds -6a. Left Leg No drift; leg holds 30-degree position for full 5 seconds -6b. Right Leg No drift; leg holds 30-degree position for full 5 seconds -7. Limb Ataxia Absent -8. Sensory Normal; no sensory loss -9. Best Language No aphasia; normal -10. Dysarthria Normal -11. Extinction and Inattention No abnormality -Total 0 Query Text:A score of 0 is normal or asymptomatic. Total possible score is 42 . ED: Notify Physician for NIHSS increase by > / = 3 points. Inpatient: RN or Physician to activate a stroke alert for NIHSS increase of > / = 3 points. Coma Scale [Assess] -Eye Opening Spontaneous -Motor Obeys Commands -Verbal Oriented [Total] -Coma Scale Total 15 NIHSS 1a. Level of Consciousness: Alert; keenly responsive 1b. LOC Questions: Answers BOTH questions correctly. 1c. LOC Commands: Performs both tasks correctly. 2. Best Gaze: Normal 3. Visual: No visual loss 4. Facial Palsy: Normal symmetrical movements 5a. Left Arm: No drift; arm holds 90 (or 45) degrees for full 10 seconds 5b. Right Arm: No drift; arm holds 90 (or 45) degrees for full 10 seconds 6a. Left Leg: No drift; leg holds 30-degree position for full 5 seconds 6b. Right Leg: No drift; leg holds 30-degree position for full 5 seconds 7. Limb Ataxia: Absent 8. Sensory: Normal; no sensory loss 9. Best Language: No aphasia; normal 10. Dysarthria: Normal 11. Extinction and Inattention: No abnormality Total: 0 Physical Exam Const alert and oriented x3 General Appearance: cooperative Orientation / Consciousness: awake Exam Limitations: no limitations HEENT normocephalic Face and Sinus: normal facial exam Eyes EOMs intact bilaterally Neuro Neuro Narrative: Awake, alert, oriented X3 Speech fluent, no aphasia Cranial nerves 2-12 intact Motor power 5/5 Sensation: Intact No ataxia Lab / Micro Data 05/26/24 06:32 05/26/24 06:32 Labs: Laboratory Results - last 24 hr 05/25/24 14:00: WBC 5.8, RBC 4.01 L, Hgb 12.7, Hct 39.2, MCV 97.8, MCH 31.7, MCHC 32.4, RDW Std Deviation 45.7 H, RDW Coeff of Krist[place] 12.7, Plt Count 203, MPV 9.7, Immature Gran % (Auto) 0.300, Neut % (Auto) 64.3, Lymph % (Auto) 23.7, [place] % (Auto) 9.3, Eos % (Auto) 2.1, Baso % (Auto) 0.3, Absolute Neuts (auto) 3.7, Absolute Lymphs (auto) 1.38, Nucleated RBC % 0, Sodium 138, Potassium 4.5, Chloride 110 H, Carbon Dioxide 23.0, Anion Gap 5, BUN 24 H, Creatinine 1.45 H, Estim Creat Clear Calc 31.24, Est GFR (MDRD) Af Amer 45 L, Est GFR (MDRD) Non-Af 37 L, BUN/Creatinine Ratio 16.6, Glucose 93, Hemoglobin A1c 5.5, Calcium 8.7 05/25/24 15:30: Urine Color Yellow, Urine Clarity Sl. Cloudy, Urine pH 5.0, Ur Specific [place] 1.020, Urine Protein 30 H, Urine Glucose (UA) Normal, Urine Ketones Negative, Urine Occult Blood 10 H, Urine Nitrite Negative, Urine Bilirubin Negative, Urine Urobilinogen Normal, Ur Leukocyte Esterase 100 H, Urine RBC 0-5 SEEN, Urine WBC 10-25 SEEN, Ur Squamous Epith Cells 0-5 SEEN, Urine Bacteria 2+, Hyaline Casts 0-5 SEEN, Urine Mucus 0 SEEN 05/25/24 16:50: Lactic Acid 0.9 05/26/24 06:32: WBC 5.5, RBC 3.47 L, Hgb 10.8 L, Hct 34.0 L, MCV 98.0, MCH 31.1, MCHC 31.8 L, RDW Std Deviation 45.3 H, RDW Coeff of Kristy 12.6, Plt Count 176, MPV 9.8, Immature Gran % (Auto) 0.200, Neut % (Auto) 55.8, Lymph % (Auto) 28.9, [place] % (Auto) 10.5 H, Eos % (Auto) 4.2, Baso % (Auto) 0.4, Absolute Neuts (auto) 3.1, Absolute Lymphs (auto) 1.59, Nucleated RBC % 0, Sodium 140, Potassium 4.0, Chloride 113 H, Carbon Dioxide 22.0, Anion Gap 5, BUN 26 H, Creatinine 1.37 H, Estim Creat Clear Calc 32.57, Est GFR (MDRD) Af Amer 48 L, Est GFR (MDRD) Non-Af 39 L, BUN/Creatinine Ratio 19.0, Glucose 112 H, Calcium 8.0 L, Phosphorus 3.0, Magnesium 2.1, Total Bilirubin 0.20, AST 12 L, ALT 17, Alkaline Phosphatase 79, Total Protein 5.6 L, Albumin 2.5 L, Globulin 3.1, Albumin/Globulin Ratio 0.8 L, Triglycerides 100, Cholesterol 210 H, LDL Cholesterol 127, VLDL Cholesterol 20, HDL Cholesterol 63 Imaging Radiology Impression Brain CT 05/25/24 16:27 IMPRESSION: New focus of hypodensity in the right frontal lobe adjacent to the right frontal horn compatible with acute to subacute ischemia. No hemorrhage is identified. Electronically Signed: Jeferson Pepe MD at 17:22 EST , Active Medications Active Medications Active Medications: Current Medications Generic Name Dose Route Start Last Admin Trade Name Freq PRN Reason Stop Dose Admin Acetaminophen 650 mg 05/25/24 20:48 05/26/24 01:56 Acetaminophen 325 Mg Tablet PO 650 mg Q6H PRN PRN Administration Pain 1-10 Or Fever>100.7 Apixaban 2.5 mg 05/25/24 22:00 05/25/24 22:16 Apixaban 2.5 Mg Tablet (h) PO 2.5 mg BID AGATA Administration Aspirin 81 mg 05/26/24 08:00 Aspirin 81 Mg Tab.Chew PO BREAKFAST AGATA Atorvastatin Calcium 40 mg 05/25/24 22:00 05/25/24 22:16 Atorvastatin Calcium 40 Mg Tablet PO 40 mg QHS AGATA Administration Hydralazine HCl 5 mg 05/25/24 20:48 Hydralazine 20 Mg/Ml Vial IV 05/26/24 20:48 Q30M PRN maintain BP parameters with HR <60 Ceftriaxone Sodium 1 gm in 50 mls @ 100 mls/hr 05/26/24 10:00 Rocephin IV Q24 AGATA Labetalol HCl 10 - 20 mg 05/25/24 20:48 Labetalol 20mg/4ml Syringe IV 05/26/24 20:48 Q10M PRN PRN maintain BP parameters with HR >/=60 Levothyroxine Sodium 75 mcg 05/26/24 06:00 05/26/24 05:54 Levothyroxine 75 Mcg Tablet PO 75 mcg DAILY@0600 AGATA Administration Lorazepam 1 mg 05/26/24 03:49 Lorazepam 1 Mg Tablet PO X1 PRN 30 min prior to MRI Ondansetron HCl 4 mg 05/25/24 20:48 Ondansetron 4 Mg/2 Ml Vial IV Q8H PRN PRN NAUSEA/VOMITING Pantoprazole Sodium 40 mg 05/26/24 10:00 Pantoprazole Sodium 40 Mg Tablet PO DAILY AGATA Senna/Docusate Sodium 2 tablet 05/25/24 20:48 Senna/Docusate Sodium 1 Tablet PO BID PRN PRN Constipation Sodium Chloride 10 - 40 ml 05/25/24 21:46 05/25/24 22:17 0.9% Saline Lock 10 Ml Syringe IV 10 ml UD PRN Administration SALINE FLUSH
[2024-05-26] MEDS: APIXABAN 2.5 MG TABLET (WCH) PO ×2 (08:42→22:11)
[2024-05-26] MEDS: Aspirin 81 MG TAB.CHEW PO (08:42)
[2024-05-26] MEDS: Pantoprazole Sodium 40 MG Tablet PO (08:42)
--- NOTE | 2024-05-26 10:19 | CASEMGMT ---
Social Work SW met w/pt, pt completed PHQ-9 w/SW. Pt scored a 1 stating having trouble concentrating the last couple of days. Pt attributes it to what is going on w/her medically. No resources needed at this time. LEDA Hagen
[2024-05-26] MEDS: Ceftriaxone 1 GM/50 ML BAG IV (10:49)
--- NOTE | 2024-05-26 11:34 | PN.HOSP_ITS ---
Subjective Subjective NIH of 0, no issues overnight. Urine culture coming back with E. coli possibly Objective Data Objective Data Vital Signs: Vital Signs Temp Pulse Resp BP Pulse Ox O2 Del Method 97.8 F 53 L 16 129/66 H 98 Room Air 05/26/24 09:45 05/26/24 10:00 05/26/24 10:00 05/26/24 10:00 05/26/24 10:00 05/26/24 10:00 Oxygen Delivery Method Room Air Weight: 172 lb 2.896 oz Body Mass Index (BMI) 29.5 Intake & Output: Intake and Output for Last 24 Hours 05/25/24 05/26/24 05/27/24 03:59 03:59 03:59 Intake Total 50 / 50 1000 / 1000 Balance 50 / 50 1000 / 1000 Lab / Micro Data 05/26/24 06:32 05/26/24 06:32 Labs: Laboratory Results - last 24 hr 05/25/24 14:00: WBC 5.8, RBC 4.01 L, Hgb 12.7, Hct 39.2, MCV 97.8, MCH 31.7, MCHC 32.4, RDW Std Deviation 45.7 H, RDW Coeff of Kristy 12.7, Plt Count 203, MPV 9.7, Immature Gran % (Auto) 0.300, Neut % (Auto) 64.3, Lymph % (Auto) 23.7, [place] % (Auto) 9.3, Eos % (Auto) 2.1, Baso % (Auto) 0.3, Absolute Neuts (auto) 3.7, Absolute Lymphs (auto) 1.38, Nucleated RBC % 0, Sodium 138, Potassium 4.5, C hloride 110 H, Carbon Dioxide 23.0, Anion Gap 5, BUN 24 H, Creatinine 1.45 H, Estim Creat Clear Calc 31.24, Est GFR (MDRD) Af Amer 45 L, Est GFR (MDRD) Non-Af 37 L, BUN/Creatinine Ratio 16.6, Glucose 93, Hemoglobin A1c 5.5, Calcium 8.7 05/25/24 15:30: Urine Color Yellow, Urine Clarity Sl. Cloudy, Urine pH 5.0, Ur Specific [place] 1.020, Urine Protein 30 H, Urine Glucose (UA) Normal, Urine Ketones Negative, Urine Occult Blood 10 H, Urine Nitrite Negative, Urine Bilirubin Negative, Urine Urobilinogen Normal, Ur Leukocyte Esterase 100 H, Urine RBC 0-5 SEEN, Urine WBC 10-25 SEEN, Ur Squamous Epith Cells 0-5 SEEN, Urine Bacteria 2+, Hyaline Casts 0-5 SEEN, Urine Mucus 0 SEEN 05/25/24 16:50: Lactic Acid 0.9 05/26/24 06:32: WBC 5.5, RBC 3.47 L, Hgb 10.8 L, Hct 34.0 L, MCV 98.0, MCH 31.1, MCHC 31.8 L, RDW Std Deviation 45.3 H, RDW Coeff of Kristy 12.6, Plt Count 176, MPV 9.8, Immature Gran % (Auto) 0.200, Neut % (Auto) 55.8, Lymph % (Auto) 28.9, [place] % (Auto) 10.5 H, Eos % (Auto) 4.2, Baso % (Auto) 0.4, Absolute Neuts (auto) 3.1, Absolute Lymphs (auto) 1.59, Nucleated RBC % 0, Sodium 140, Potassium 4.0, C hloride 113 H, Carbon Dioxide 22.0, Anion Gap 5, BUN 26 H, Creatinine 1.37 H, Estim Creat Clear Calc 32.57, Est GFR (MDRD) Af Amer 48 L, Est GFR (MDRD) Non-Af 39 L, BUN/Creatinine Ratio 19.0, Glucose 112 H, Calcium 8.0 L, Phosphorus 3.0, Magnesium 2.1, Total Bilirubin 0.20, AST 12 L, ALT 17, Alkaline Phosphatase 79, Total Protein 5.6 L, Albumin 2.5 L, Globulin 3.1, Albumin/Globulin Ratio 0.8 L, Triglycerides 100, Cholesterol 210 H, LDL Cholesterol 127, VLDL Cholesterol 20, HDL Cholesterol 63 Micro: Microbiology 05/25/24 15:30 Urine, Clean Catch Urine Culture - Preliminary Presumptive E. coli GPC Poss Enterococcus sp Radiography Diagnostic Testing: Radiology Impression Brain CT 05/25/24 16:27 IMPRESSION: New focus of hypodensity in the right frontal lobe adjacent to the right frontal horn compatible with acute to subacute ischemia. No hemorrhage is identified. Electronically Signed: Jeferson Pepe MD at 17:22 EST , Physical Exam Narrative General: Alert, Oriented x3, Cooperative, No apparent distress HEENT: Atraumatic, PERRLA, EOMI, Normocephalic Oral: Moist Mucosa Neck: Supple, No JVD Lungs: Clear to auscultation, Normal air movement, No rhonchi, No wheeze, No rales Cardiovascular: Regular rate, Regular Rhythm, Normal S1, Normal S2, No murmurs Abdomen: Soft, Non Tender, Non-Distended, No Hepato-splenomegaly Extremities: No edema, Capillary Refill Less than 3 Seconds Skin: No rashes, No breakdown Musculoskeletal: No Tenderness to Palpation of Joints or Extremities Neurological: No focal neurological deficits, Motor Exam 5/5 strength throughout, Sensory exam intact to light touch and pain Psych/Mental Status: Normal Affect, Appropriate Assessment & Plan Assessment/Plan (1) Acute ischemic stroke: (2) Abnormal urinalysis: (3) Toxic metabolic encephalopathy: PLAN: Plan 1. Right frontal lobe CVA in the setting of A-fib/essential HTN ? Unclear if it is acute to subacute or old, MRI is pending appreciate neurology's assistance ? Continue with Eliquis ? Continue with aspirin ? Will discontinue Plavix ? Continue with Lipitor ? Echo is pending ? Can restart metoprolol if necessary 2. Metabolic encephalopathy secondary to the CVA in the setting of a UTI ? Urine cultures are pending with gram-positive Enterococcus versus E. coli ? Continue with Rocephin for now, she will have a leukocytosis 3. Hypothyroidism ? Stable ? Continue with Synthroid DVT: Eliquis Charges/Coding Visit Charges Inpatient E&M: 17340 Subs Hosp L2
[2024-05-26] MEDS: LORazepam 1 MG Tablet PO (11:51)
--- NOTE | 2024-05-26 12:08 | MRI_ITS ---
STUDY: MRI BRAIN WITHOUT CONTRAST REASON FOR EXAM: Female, 83 years old. H/o R MCA stroke, increased confusion last 4 days TECHNIQUE: Standardized multiplanar fat and water weighted pulse sequences were obtained. COMPARISON: May 25, 2024 CT FINDINGS: There is mild cerebral atrophy with widening of the extra-axial spaces and ventricular dilatation. There are a limited number of small white matter hyperintensities, distributed throughout the deep white matter tracts of the cerebral hemispheres, consistent with mild chronic white matter ischemic changes. There is increased T2 signal and restricted diffusion in the right frontal and temporal periventricular white matter and extending to the cortex consistent with recent, subacute, infarct. Normal T2* images of the brain without demonstrated susceptibility artifact. There is no demonstrated hemosiderin stain. Normal bilateral basal ganglia. Normal thalami. There is no extra-axial fluid accumulation. Normal flow voids within the major intracranial circulation suggesting patency by spin echo criteria. Normal sella turcica, pituitary gland, infundibular stalk, optic chiasm and hypothalamus. Normal tectal plate and pineal gland. Normal midbrain, anibal and medulla. Normal cerebellum. Normal basal cisterns. Normal bilateral temporal bones. Normal bilateral internal auditory canals. No demonstrated orbital abnormality, within the constraints of a routine brain study. Normal visualized paranasal sinuses. Normal calvarium and skull base. Normal visualized soft tissue structures. Normal visualized upper cervical spine. MRI/Brain without Contrast IMPRESSION: Recent right frontal and temporal infarct. No hemorrhage. Electronically Signed: Cooper Maloney MD at 14:31 EST ,
--- NOTE | 2024-05-26 12:08 | MRI_ITS ---
STUDY: MRA OF THE HEAD WITHOUT CONTRAST REASON FOR EXAM: Female, 83 years old. H/o R MCA stroke, increased confusion last 4 days TECHNIQUE: 3-D [id number] (TOF) imaging was performed with MIPs. The study was performed unenhanced. COMPARISON: None. FINDINGS: Normal bilateral petrous carotid arteries. Normal right cavernous carotid artery with a normal supraclinoid bifurcation. Normal left cavernous carotid artery with a normal supraclinoid bifurcation. Normal right A1 segments of the anterior cerebral artery. Normal left A1 segments of the anterior cerebral artery. Normal intact anterior communicating artery (ACOM). Normal bilateral A2 segments of the anterior cerebral arteries. Normal right M1 segment of the middle cerebral arteries, with a normal M1 bifurcation. There is decreased flow and occlusion involving the right M2 branches. Normal left M1 and M2 segments of the middle cerebral arteries, with a normal M1 bifurcation. There is a persistent origin of the right posterior cerebral artery with absence of the P1 segment of the right posterior cerebral artery. There is non-visualization of the left posterior communicating artery (PCOM). Normal bilateral vertebral arteries. Normal basilar artery with a normal basilar bifurcation. The visualized bilateral superior cerebellar (SCA) arteries are normal. Normal bilateral P1, P2 and visualized P3 segments of the posterior cerebral arteries. There is no demonstrated aneurysm of the [place] of [place]. There is no major vessel occlusion or hemodynamically significant stenosis. There is no demonstrated abnormality of the visualized brain. MRI/MRA Head ONLY without Contrast IMPRESSION: Right middle cerebral artery branch decreased flow and occlusion. Electronically Signed: Cooper Maloney MD at 14:38 EST ,
--- NOTE | 2024-05-26 12:08 | MRI_ITS ---
STUDY: MRA NECK WITHOUT CONTRAST REASON FOR EXAM: Female, 83 years old. H/o R MCA stroke, increased confusion last 4 days TECHNIQUE: Source images were obtained, MIPs were performed. The study was performed unenhanced. COMPARISON: None. FINDINGS: RIGHT CAROTID ARTERIES: Normal right common carotid artery (CCA). There is mild atherosclerotic plaque formation with minimal narrowing of the right carotid bulb. There is mild atherosclerotic plaque formation of the origin of the right internal carotid artery with less than 50% cross sectional diameter stenosis. Normal visualized cervical portion of the right internal carotid artery. Normal origin of the right external carotid artery (ECA). LEFT CAROTID ARTERIES: Normal left common carotid artery (CCA). There is mild atherosclerotic plaque formation with minimal narrowing of the left carotid bulb. There is mild atherosclerotic plaque formation of the origin of the left internal carotid artery with less than 50% cross sectional diameter stenosis. Normal visualized cervical portion of the left internal carotid artery. Normal origin of the left external carotid artery (ECA). VERTEBRAL ARTERIES: Normal antegrade flow within the bilateral vertebral artery without a hemodynamically significant stenosis. MRI/MRA Neck without Contrast IMPRESSION: Mild narrowing of the carotid arteries. There is no hemodynamically significant internal carotid artery stenosis. Electronically Signed: Cooper Maloney MD at 14:43 EST ,
[2024-05-26] MEDS: MELATONIN 3 MG TABLET PO (22:11)
[2024-05-26] MEDS: 0.9% Saline Lock 10 ML Syringe IV (22:11)
[2024-05-26] MEDS: Atorvastatin Calcium 40 MG Tablet PO (22:11)
[2024-05-27 02:00] VITALS: BP 144/72; PULSE 67; RESP 16; TEMP 37.3; O2SAT 95
[2024-05-27 06:00] VITALS: BP 149/70; PULSE 65; RESP 16; TEMP 37.1; O2SAT 97
[2024-05-27] MEDS: Levothyroxine 75 MCG Tablet PO (06:10)
[2024-05-27 07:09] LABS: Absolute Lymphocyte Count 0.62 X10^3/uL (0.83-4.51); Absolute Neutrophil Count 4.4 X10^3/uL (2.0-7.7); Basophil# 0.01 X10^3/uL; Basophil% 0.2 % (0-1); Eosinophil# 0.14 X10^3/uL; Eosinophils% 2.5 % (0-5); Hematocrit 35.5 % (37-47); Hemoglobin 11.8 g/dL (12.0-15.0); Lymphocyte # 0.62 X10^3/ul (0.83-4.51); Mean Corp Hgb Conc 33.2 g/dL (32-36); Mean Corpuscular Hgb 31.9 pg (27.0-32.0); Mean Corpuscular Volume 95.9 fL (81-99); Mean Platelet Vol. 10.4 fl (6.2-12.0); Monocyte# 0.42 X10^3/uL; Monocyte% 7.4 % (0-10); NRBC Flagged by Analyzer 0 % (0-5); Neutrophil # 4.43 X10^3/uL (2.7-7.7); Neutrophil % 78.4 % (47-70); Platelet Count 183 K/mm3 (150-450); RBC Distribution Width CV 12.2 % (11.6-14.6); White Blood Count 5.7 K/mm3 (4.4-11.0)
[2024-05-27 07:30] LABS: Anion Gap 5 (5-15); BUN 24 mg/dL (7-18); BUN/Creat Ratio 16.9 RATIO (10-20); Calcium,Total 8.6 mg/dL (8.5-10.1); Chloride 106 mmol/L (98-107); Creatinine, Serum 1.42 mg/dL (0.55-1.02); EST Glomerular Filtration Rate 38 mL/min (>60); Est Glom Filt Rate - Afr Amer 46 mL/min (>60); Estimated Creatinine Clearance 31.42 ml/min; Glucose 97 mg/dL (74-106); Potassium 4.4 mmol/L (3.5-5.1); Sodium Level 135 mmol/L (136-145)
--- NOTE | 2024-05-27 07:50 | PN.NEURO_ITS ---
Objective Data Objective Data Vital Signs: Vital Signs Temp Pulse Resp BP Pulse Ox O2 Del Method 98.8 F 65 16 149/70 H 97 Room Air 05/27/24 06:00 05/27/24 06:00 05/27/24 06:00 05/27/24 06:00 05/27/24 06:00 05/27/24 06:00 Oxygen Delivery Method Room Air Weight: 78.1 kg Body Mass Index (BMI) 29.5 Intake & Output: Intake and Output for Last 24 Hours 05/25/24 05/26/24 05/27/24 23:59 23:59 23:59 Intake Total 50 / 50 1290 / 1290 Balance 50 / 50 1290 / 1290 Lab / Micro Data 05/27/24 06:00 05/27/24 06:00 Labs: Laboratory Results - last 24 hr 05/27/24 06:00: WBC 5.7, RBC 3.70 L, Hgb 11.8 L, Hct 35.5 L, MCV 95.9, MCH 31.9, MCHC 33.2, RDW Std Deviation 43.0, RDW Coeff of Kristy 12.2, Plt Count 183, MPV 10.4, Immature Gran % (Auto) 0.500, Neut % (Auto) 78.4 H, Lymph % (Auto) 11.0 L, [place] % (Auto) 7.4, Eos % (Auto) 2.5, Baso % (Auto) 0.2, Absolute Neuts (auto) 4.4, Absolute Lymphs (auto) 0.62 L, Nucleated RBC % 0, Sodium 135 L, Potassium 4.4, Chloride 106, Carbon Dioxide 24.0, Anion Gap 5, BUN 24 H, Creatinine 1.42 H , Estim Creat Clear Calc 31.42, Est GFR (MDRD) Af Amer 46 L, Est GFR (MDRD) Non- Af 38 L, BUN/Creatinine Ratio 16.9, Glucose 97, Calcium 8.6 Micro: Microbiology 05/25/24 15:30 Urine, Clean Catch Urine Culture - Preliminary Presumptive E. coli GPC Poss Enterococcus sp Radiography Diagnostic Testing: Radiology Impression Echocardiogram 05/25/24 19:41 Interpretation Summary Normal LV size. Left ventricular systolic function is normal. The left ventricular ejection fraction is 60 %. Stage 1 diastolic dysfunction. Ordering Physician: Audra Leal Referring Physician: MD Sebastien Reddy Performed By: Cris Ramsey RDCS Brain MRI 05/26/24 12:08 IMPRESSION: Recent right frontal and temporal infarct. No hemorrhage. Electronically Signed: Cooper Maloney MD at 14:31 EST , Head MRA 05/26/24 12:08 IMPRESSION: Right middle cerebral artery branch decreased flow and occlusion. Electronically Signed: Cooper Maloney MD at 14:38 EST , Neck MRA 05/26/24 12:08 IMPRESSION: Mild narrowing of the carotid arteries. There is no hemodynamically significant internal carotid artery stenosis. Electronically Signed: Cooper Maloney MD at 14:43 EST , Physical Exam Const Orientation / Consciousness: awake, oriented to person, oriented to place and oriented to time HEENT normocephalic Eyes EOMs intact bilaterally Neuro Neuro Narrative: Awake, alert Tells the month, accurately CN 2-12 intact Moves all extremities equally Sensation: Intact No ataxia Subject: Neurology Subjective NAOMI HARRISON is a 83 year old F, who we are seeing in consultation today for advice on the management of altered mental status. Family reports her mental status changes were initially noted about 4 days ago. She remains alert and oriented but it has been little things that she is not remembering more short-term memory type concerns. The patient does admit to have some mild weakness and has a history of stroke in the right MCA remotely. Thsi happened on New and is getting better. She is anticoagulated at baseline on Eliquis 2.5 mg daily with dose reduction for age greater than 80 and serum creatinine greater than 1.5. She has been compliant with medications. She has had no fever or chills, no chest pain or shortness of breath she admitted to having a mild headache but has no other symptoms. She denies any dysuria or urinary frequency. She is doing much better and likely back to baseline CT of the brain was performed and a new foci of hypodensity was noted in the right frontal lobe adjacent to the right frontal horn compatible with acute on subacute ischemic stroke. Assessment and Plan: Stroke Assessment/Plan NAOMI HARRISON is a 83 F with a history of with a history of Afib on eliquis, CKD, prior stroke who presents for evaluation of encephalopathy. Not a TNK or thrombectomy candidate. Neurological examination shows intact examination. Neuroimaging shows Right frontal stroke on CT. LDL: 127. hbA1c: 5.5. MRI brain: Right fronto temporal infarct. MRA: R MCA M2 occlusion, ECHO: EF 60%. Suspect stroke from A Fib despite being on AC From stroke stand point continue home Eliquis Started on ASA 81 - okay to continue for now. 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 Spent 36 min in evaluation of this patient.
[2024-05-27] MEDS: Aspirin 81 MG TAB.CHEW PO (08:11)
[2024-05-27] MEDS: APIXABAN 2.5 MG TABLET (WCH) PO ×2 (08:11→21:56)
[2024-05-27] MEDS: Ceftriaxone 1 GM/50 ML BAG IV (08:11)
[2024-05-27] MEDS: Pantoprazole Sodium 40 MG Tablet PO (08:11)
[2024-05-27 08:49] VITALS: BMI 29.5
[2024-05-27 10:00] VITALS: BP 140/68; PULSE 68; RESP 14; TEMP 37; O2SAT 98
--- NOTE | 2024-05-27 13:01 | PCM.PN.HOSP ---
Subjective Subjective Resting comfortably, no issues overnight Objective Data Objective Data Vital Signs: Vital Signs Temp Pulse Resp BP Pulse Ox O2 Del Method 98.6 F 68 14 140/68 H 98 Room Air 05/27/24 10:00 05/27/24 10:00 05/27/24 10:00 05/27/24 10:00 05/27/24 10:00 05/27/24 10:00 Oxygen Delivery Method Room Air Weight: 172 lb 2.896 oz Body Mass Index (BMI) 29.5 Intake & Output: Intake and Output for Last 24 Hours 05/26/24 05/27/24 05/28/24 03:59 03:59 03:59 Intake Total 50 / 50 1290 / 1290 525 / 525 Balance 50 / 50 1290 / 1290 525 / 525 Lab / Micro Data 05/28/24 05:36 05/28/24 05:36 Labs: Laboratory Results - last 24 hr 05/27/24 06:00: WBC 5.7, RBC 3.70 L, Hgb 11.8 L, Hct 35.5 L, MCV 95.9, MCH 31.9, MCHC 33.2, RDW Std Deviation 43.0, RDW Coeff of Kristy 12.2, Plt Count 183, MPV 10.4, Immature Gran % (Auto) 0.500, Neut % (Auto) 78.4 H, Lymph % (Auto) 11.0 L, Howard % (Auto) 7.4, Eos % (Auto) 2.5, Baso % (Auto) 0.2, Absolute Neuts (auto) 4.4, Absolute Lymphs (auto) 0.62 L, Nucleated RBC % 0, Sodium 135 L, Potassium 4.4, Chloride 106, Carbon Dioxide 24.0, Anion Gap 5, BUN 24 H, Creatinine 1.42 H, Estim Creat Clear Calc 31.42, Est GFR (MDRD) Af Amer 46 L, Est GFR (MDRD) Non-Af 38 L, BUN/Creatinine Ratio 16.9, Glucose 97, Calcium 8.6 Micro: Microbiology 05/25/24 15:30 Urine, Clean Catch Urine Culture - Preliminary Presumptive E. coli GPC Poss Enterococcus sp Radiography Diagnostic Testing: Radiology Impression Brain MRI 05/26/24 12:08 IMPRESSION: Recent right frontal and temporal infarct. No hemorrhage. Electronically Signed: Cooper Maloney MD at 14:31 EST , Head MRA 05/26/24 12:08 IMPRESSION: Right middle cerebral artery branch decreased flow and occlusion. Electronically Signed: Cooper Maloney MD at 14:38 EST Reading Location ID and State: [facility] / [place] , Service support , Neck MRA 05/26/24 12:08 IMPRESSION: Mild narrowing of the carotid arteries. There is no hemodynamically significant internal carotid artery stenosis. Electronically Signed: Cooper Maloney MD at 14:43 EST Reading Location ID and State: [address] [place] [address] , Service support , Physical Exam Narrative General: Alert, Oriented x3, Cooperative, No apparent distress HEENT: Atraumatic, PERRLA, EOMI, Normocephalic Oral: Moist Mucosa Neck: Supple, No JVD Lungs: Clear to auscultation, Normal air movement, No rhonchi, No wheeze, No rales Cardiovascular: Regular rate, Regular Rhythm, Normal S1, Normal S2, No murmurs Abdomen: Soft, Non Tender, Non-Distended, No Hepato-splenomegaly Extremities: No edema, Capillary Refill Less than 3 Seconds Skin: No rashes, No breakdown Musculoskeletal: No Tenderness to Palpation of Joints or Extremities Neurological: No focal neurological deficits, Motor Exam 5/5 strength throughout, Sensory exam intact to light touch and pain Psych/Mental Status: Normal Affect, Appropriate Assessment & Plan Assessment/Plan (1) Acute ischemic stroke: (2) Abnormal urinalysis: (3) Toxic metabolic encephalopathy: PLAN: Plan 1. Right frontal lobe CVA in the setting of A-fib/essential HTN ? MRI with a subacute right frontal and temporal CVA ? MRA of the head and neck is unremarkable for large vessel occlusion, the right M2 branch has decreased flow with mild narrowing of the carotid arteries ? Continue with Eliquis ? Continue with aspirin ? Will discontinue Plavix ? Continue with Lipitor ? Echo echo with an EF of 60% stage I diastolic dysfunction ? Can restart metoprolol if necessary ? PT/OT 2. Metabolic encephalopathy secondary to the CVA in the setting of a UTI ? Urine cultures are pending with gram-positive Enterococcus versus E. coli ? Continue with Rocephin for now, she will have a leukocytosis 3. Hypothyroidism ? Stable ? Continue with Synthroid DVT: Eliquis Charges/Coding Visit Charges Inpatient E&M: 84850 Subs Hosp L2
[2024-05-27 14:00] VITALS: BP 136/64; PULSE 74; RESP 14; TEMP 37.1; O2SAT 96
[2024-05-27 15:40] VITALS: O2SAT 94
[2024-05-27] MEDS: MELATONIN 3 MG TABLET PO (21:56)
[2024-05-27] MEDS: 0.9% Saline Lock 10 ML Syringe IV (21:56)
[2024-05-27] MEDS: Atorvastatin Calcium 40 MG Tablet PO (21:56)
[2024-05-27 22:00] VITALS: BP 121/69; PULSE 84; RESP 16; TEMP 37.2; O2SAT 94
[2024-05-27 22:03] VITALS: BMI 29.5
[2024-05-28 02:00] VITALS: BP 111/61; PULSE 77; RESP 16; TEMP 36.8; O2SAT 96
[2024-05-28 05:58] LABS: Absolute Lymphocyte Count 0.77 X10^3/uL (0.83-4.51); Absolute Neutrophil Count 3.1 X10^3/uL (2.0-7.7); Basophil# 0.01 X10^3/uL; Basophil% 0.2 % (0-1); Eosinophil# 0.23 X10^3/uL; Eosinophils% 4.7 % (0-5); Hematocrit 36.6 % (37-47); Lymphocyte # 0.77 X10^3/ul (0.83-4.51); Lymphocyte % 15.9 % (19-41); Mean Corp Hgb Conc 32.8 g/dL (32-36); Mean Corpuscular Hgb 31.5 pg (27.0-32.0); Mean Corpuscular Volume 96.1 fL (81-99); Mean Platelet Vol. 9.8 fl (6.2-12.0); Monocyte# 0.69 X10^3/uL; Monocyte% 14.2 % (0-10); NRBC Flagged by Analyzer 0 % (0-5); Neutrophil # 3.14 X10^3/uL (2.7-7.7); Neutrophil % 64.8 % (47-70); Platelet Count 181 K/mm3 (150-450); RBC Distribution Width CV 12.7 % (11.6-14.6); RBC Distribution Width SD 44.9 fl (35.1-43.9); Red Blood Count 3.81 M/mm3 (4.2-5.4); White Blood Count 4.9 K/mm3 (4.4-11.0)
[2024-05-28 06:00] VITALS: BP 108/60; PULSE 74; RESP 16; TEMP 36.9; O2SAT 94
[2024-05-28] MEDS: Levothyroxine 75 MCG Tablet PO (06:10)
[2024-05-28 06:36] LABS: Anion Gap 4 (5-15); BUN 20 mg/dL (7-18); BUN/Creat Ratio 14.7 RATIO (10-20); Calcium,Total 8.6 mg/dL (8.5-10.1); Chloride 106 mmol/L (98-107); Creatinine, Serum 1.36 mg/dL (0.55-1.02); EST Glomerular Filtration Rate 40 mL/min (>60); Est Glom Filt Rate - Afr Amer 48 mL/min (>60); Estimated Creatinine Clearance 32.81 ml/min; Glucose 130 mg/dL (74-106); Potassium 3.9 mmol/L (3.5-5.1); Sodium Level 136 mmol/L (136-145)
[2024-05-28 09:10] VITALS: O2SAT 94
--- NOTE | 2024-05-28 10:02 | PCM.DC ---
Discharge Instructions Diet Discharge Diet: Low fat / Low cholesterol DC O2, CPAP, BIPAP needs Home O2 Discharge instructions: No Dressing / Incision Discharge Activity: Return to Normal Activity Dressing / Incision Call your doctor if you observe: Fever of 101 or Higher, Shortness of breath, Dizziness, Fainting spells, Swelling in the ankles, Chest pain and Increased palpitations (irregular heartbeat) Follow Up Care Test Results: Test results from this visit will be discussed in further detail at your follow-up appointment, if applicable. Discharge Plan Admission Admit Date/Time: 05/26/24 15:16 Attending Provider: Armando Champagne Primary Care Provider: Reddy Crowe Consulting Providers: Lew Rodriguez; Billy Brooks; Sarah Beck; Alma Woods; Becca Fletcher; Faizan Gomez; Angella Walker; Fransisco Matthews; Dayne Diop; Paddy Vásquez; Addis Guillen; Tapan Corrales; Cecilia Quigley; Daysi Kirby; Megha Sevilla; Julio David; Wilson Fatima; Qasim Clayton; Azalea Leal; Margaret Khan; Audra Leal Discharge Orders/Prescriptions Prescriptions: New atorvastatin 40 mg Tablet 40 mg PO QHS 30 Days Qty: 30 0RF aspirin 81 mg Tablet,Chewable 81 mg PO BREAKFAST 21 Days Qty: 21 0RF cefdinir 300 mg capsule 300 mg PO BID 4 Days Qty: 8 0RF Continued biotin 1,000 mcg Tablet,Chewable 1,000 mcg PO DAILY oxycodone 5 mg Capsule 5 mg PO Q6H PRN (Reason: Pain 1-10) metoprolol tartrate 25 mg tablet 12.5 mg PO BID Qty: 20 0RF Rx Instructions: 1/2 tab every 12H acetaminophen 325 mg capsule 650 mg PO Q6H PRN (Reason: fever or pain) Qty: 1 0RF levothyroxine 75 mcg Tablet 75 mcg PO DAILY Qty: 30 0RF Rx Instructions: Take in the AM with water on empty stomach. No eating or drinking for 30 min. pantoprazole 40 mg Tablet,Delayed Release (Dr/Ec) 40 mg PO DAILY Qty: 30 0RF Eliquis 2.5 mg tablet 2.5 mg PO BID Qty: 60 0RF [id number]-vit [id number] [PreserVision AREDS 2 Plus MV] PO Referrals / Follow Up: Reddy Crowe MD [Primary Care Provider] - Within 1 Week Disposition Disposition (needs filled in before D/C Order can be placed): Home, Self Care
[2024-05-28 10:07] VITALS: BP 121/74; PULSE 74; RESP 16; TEMP 36.9; O2SAT 94
[2024-05-28] MEDS: Pantoprazole Sodium 40 MG Tablet PO (10:09)
[2024-05-28] MEDS: APIXABAN 2.5 MG TABLET (WCH) PO (10:09)
[2024-05-28] MEDS: Aspirin 81 MG TAB.CHEW PO (10:09)
[2024-05-28] MEDS: Ceftriaxone 1 GM/50 ML BAG IV (10:11)
--- NOTE | 2024-05-28 10:50 | CASEMGMT ---
Patient has order for discharge. RN CM in to discuss needs at discharge. Patient up independent in room. Patient denies needs or help at discharge. Patient had no further questions or concerns.
--- NOTE | 2024-05-28 12:01 | PCM.DC.SUM ---
Providers Date of Admission: 05/26/24 Primary Care Physician: Dr. Reddy Crowe MD Consultations 05/25/24 20:48 Consult: Tele-Neurology Routine Consulting Provider: [facility] Reason for Consult: Acute Ischemic Stroke/TIA EMERGENT Consult: No MD Notified: Yes Date Notified: 05/25/24 Time Notified: 21:46 Method of Notification: Answering Service Nursing Unit Staff Notify [facility] of Tele-Neurology Consult: Yes Reason For Visit: ACUTE STROKE/ALTERED MENTATION Diagnosis Discharge Diagnosis (1) Acute ischemic stroke: Status: Acute Code(s): I63.9 - Cerebral infarction, unspecified (2) Abnormal urinalysis: Status: Acute Code(s): R82.90 - Unspecified abnormal findings in urine (3) Toxic metabolic encephalopathy: Status: Acute Code(s): G92.8 - Other toxic encephalopathy Medications at Discharge Home Medications biotin 1,000 mcg chewable tablet 1,000 mcg PO DAILY supplement 11/11/21 oxycodone 5 mg capsule 5 mg PO Q6H PRN Pain 1-10 10/05/22 acetaminophen 325 mg capsule 650 mg (2 x 325 mg) PO Q6H PRN fever or pain #1 cap 10/26/22 apixaban 2.5 mg tablet (Eliquis) 2.5 mg PO BID A-Fib #60 tabs 10/26/22 levothyroxine 75 mcg tablet 75 mcg PO DAILY hypothyroid #30 tabs 10/26/22 metoprolol tartrate 25 mg tablet 12.5 mg (1/2 x 25 mg) PO BID blood pressure #20 tabs 10/26/22 pantoprazole 40 mg tablet,delayed release 40 mg PO DAILY reflux #30 tabs 10/26/22 [id number]-vit [id number] PO 05/25/24 aspirin 81 mg chewable tablet 81 mg PO BREAKFAST 21 days #21 tabs 05/28/24 atorvastatin 40 mg tablet 40 mg PO QHS 30 days #30 tabs 05/28/24 cefdinir 300 mg capsule 300 mg PO BID 4 days #8 caps 05/28/24 Hospital Course Operations None Procedures 2-D Echocardiogram Summary of Care Provided Minutes Spent on Discharge: 33 Hospital Course: Per HPI: NAOMI HARRISON, is a 83 F who presented to the emergency department at [facility] on 05/25/2024 with a chief complaint of altered mental status. Family reports her mental status changes were initially noted about 4 days ago. This seems to be waxing and waning. She remains alert and oriented but it has been little things that she is not remembering more short-term memory type concerns. The patient does admit to have some mild weakness and has a history of stroke in the right MCA remotely. She is anticoagulated at baseline on Eliquis 2.5 mg daily with dose reduction for age greater than 80 and serum creatinine greater than 1.5. She has had no fever or chills, no chest pain or shortness of breath she admitted to having a mild headache but has no other symptoms. She denies any dysuria or urinary frequency. On my exam she was alert and oriented x 3. Vital signs on presentation showed a temperature of 97.8, heart rate 74, respiratory 18, blood pressure 130/68 and oxygen saturations were 98% on room air. CBC is unremarkable. Chemistry panel shows normal electrolytes with elevated serum creatinine 1.45 consistent with her baseline CKD (baseline serum creatinine 1.4-1.6). Lactic acid was normal at 0.9. UA is somewhat suggestive of infection and some dehydration with a specific gravity of 1.02, positive leuk esterase, white cells and bacteria was present. With her confusion CT of the brain was performed and a new foci of hypodensity was noted in the right frontal lobe adjacent to the right frontal horn compatible with acute on subacute ischemic stroke. Patient has been compliant with her anticoagulation and has no other symptoms suggestive of stroke. Foci of stroke however could explain some of her confusion. Hospital Course: 1. Right frontal lobe and temporal lobe CVA in the setting of A-fib/essential HTN/metabolic encephalopathy secondary to the CVA is in the setting of UTI?83-year-old female presented to the hospital with altered mental status. She was A and O x 3 but family said that she was saying odd and inconsistent things. MRI demonstrated a subacute right frontal and temporal lobe CVA. MRA of the head and neck was unremarkable for large vessel occlusion however the right M2 branch had decreased flow and mild narrowing of the carotid arteries. She does have a history of A-fib so we will continue with her Eliquis. She will be placed on aspirin for 21 days and will discontinue Plavix. She was continued on Lipitor on discharge as well. Echo demonstrated an EF of 60% with stage I diastolic dysfunction and she will be able to resume her metoprolol on discharge. Her urine culture demonstrated Enterococcus as well as E. coli, she was on Rocephin with improvement in her symptoms. Her Enterococcus is sensitive to Macrobid however she develops hives from Macrobid so we will continue with 4 days of p.o. cefdinir on discharge. I do recommend follow-up with her PCP in 3 to 5 days to monitor her improvement and also any symptoms from a UTI given the Enterococcus that is growing. Does appear that her metabolic encephalopathy has completely resolved as well per family. I discussed with her the plan for discharge and she expressed understanding there is benefits of going home and would like to go home. 2. Hypothyroidism, GERD are chronic medical conditions which complicate her care. Her home medications were continued where appropriate Physical Exam Narrative General: Alert, Oriented x3, Cooperative, No apparent distress HEENT: Atraumatic, PERRLA, EOMI, Normocephalic Oral: Moist Mucosa Neck: Supple, No JVD Lungs: Clear to auscultation, Normal air movement, No rhonchi, No wheeze, No rales Cardiovascular: Regular rate, Regular Rhythm, Normal S1, Normal S2, No murmurs Abdomen: Soft, Non Tender, Non-Distended, No Hepato-splenomegaly Extremities: No edema, Capillary Refill Less than 3 Seconds Skin: No rashes, No breakdown Musculoskeletal: No Tenderness to Palpation of Joints or Extremities Neurological: No focal neurological deficits, Motor Exam 5/5 strength throughout, Sensory exam intact to light touch and pain Psych/Mental Status: Normal Affect, Appropriate Weight / BMI Weight Weight: 172 lb 2.896 oz Body Mass Index (BMI) 29.5 ABG / Lab / Microbiology Data 05/28/24 05:36 05/28/24 05:36 Laboratory: Laboratory Results - last 24 hr 05/28/24 05:36: WBC 4.9, RBC 3.81 L, Hgb 12.0, Hct 36.6 L, MCV 96.1, MCH 31.5, MCHC 32.8, RDW Std Deviation 44.9 H, RDW Coeff of Kristy 12.7, Plt Count 181, MPV 9.8, Immature Gran % (Auto) 0.200, Neut % (Auto) 64.8, Lymph % (Auto) 15.9 L, [place] % (Auto) 14.2 H, Eos % (Auto) 4.7, Baso % (Auto) 0.2, Absolute Neuts (auto) 3.1, Absolute Lymphs (auto) 0.77 L, Nucleated RBC % 0, Sodium 136, Potassium 3.9, Chloride 106, Carbon Dioxide 26.0, Anion Gap 4 L, BUN 20 H, Creatinine 1.36 H, Estim Creat Clear Calc 32.81, Est GFR (MDRD) Af Amer 48 L, Est GFR (MDRD) Non-Af 40 L, BUN/Creatinine Ratio 14.7, Glucose 130 H, Calcium 8.6 Microbiology: Microbiology 05/25/24 16:50 Blood Culture (Wb) - Right Forearm Blood Culture - Preliminary No growth in 48 hours. 05/25/24 16:50 Blood Culture (Wb) - Anticubital Left Blood Culture - Preliminary No growth in 48 hours. 05/25/24 15:30 Urine, Clean Catch Urine Culture - Final Presumptive E. coli Enterococcus faecalis D/C Instructions Discharge Diet: Low fat / Low cholesterol Call your doctor if you observe: Fever of 101 or Higher, Shortness of breath, Dizziness, Fainting spells, Swelling in the ankles, Chest pain and Increased palpitations (irregular heartbeat) DC O2, CPAP, BIPAP Needs Home O2 Discharge instructions: No Meaningful Use Info Meaningful Use Meaningful Use Diagnoses (Choose all that apply): None applicable Ischemic Stroke Statin Dosing Therapy Reference: STATIN DOSE THERAPY REFERENCE: * Patients > 75 years receive moderate or high dose statin therapy. * Patients 75 years or YOUNGER should receive HIGH intensity statin dose unless contraindicated. You will be required to document reason for non-treatment if statin daily dose does not meet guidelines. HIGH DOSE STATIN THERAPY DAILY Atorvastatin > than or = to 40 mg Rosuvastatin > than or = to 20 mg Amlodipine + Atorvastatin > than or = to 2.5/40 mg Ezetimibe + Simvastatin 10/80 mg Simvastatin 80mg Discharge Plan Admission Admit Date/Time: 05/26/24 15:16 Attending Provider: Armando Champagne Primary Care Provider: Reddy Crowe Consulting Providers: Lew Rodriguez; Billy Brooks; Sarah Beck; Alma Woods; Becca Fletcher; Faizan Gomez; Angella Walker; Fransisco Matthews; Dayne Diop; Paddy Vásquez; Addis Guillen; Tapan Corrales; Cecilia Quigley; Daysi Kirby; Megha Sevilla; Julio David; Wilson Fatima; Qasim Clayton; Azalea Leal; Margaret Khan; Audra Leal Discharge Orders/Prescriptions Prescriptions: New atorvastatin 40 mg Tablet 40 mg PO QHS 30 Days Qty: 30 0RF aspirin 81 mg Tablet,Chewable 81 mg PO BREAKFAST 21 Days Qty: 21 0RF cefdinir 300 mg capsule 300 mg PO BID 4 Days Qty: 8 0RF Continued biotin 1,000 mcg Tablet,Chewable 1,000 mcg PO DAILY oxycodone 5 mg Capsule 5 mg PO Q6H PRN (Reason: Pain 1-10) metoprolol tartrate 25 mg tablet 12.5 mg PO BID Qty: 20 0RF Rx Instructions: 1/2 tab every 12H acetaminophen 325 mg capsule 650 mg PO Q6H PRN (Reason: fever or pain) Qty: 1 0RF levothyroxine 75 mcg Tablet 75 mcg PO DAILY Qty: 30 0RF Rx Instructions: Take in the AM with water on empty stomach. No eating or drinking for 30 min. pantoprazole 40 mg Tablet,Delayed Release (Dr/Ec) 40 mg PO DAILY Qty: 30 0RF Eliquis 2.5 mg tablet 2.5 mg PO BID Qty: 60 0RF [id number]-vit [id number] [PreserVision AREDS 2 Plus MV] PO Referrals / Follow Up: Reddy Crowe MD [Primary Care Provider] - Within 1 Week Disposition Disposition (needs filled in before D/C Order can be placed): Home, Self Care Charges/Coding Visit Charges Inpatient E&M: 53247 Disch Hosp >30min
--- NOTE | 2024-05-28 14:53 | CHAPLAIN ---
Type of Pastoral Visit ___ Initial Visit ___ Follow-up Visit ___ On-call Visit ___ General Patient Visit ___ Spiritual Assessment ___ Family Conference ___ Bereavement ___ Rapid Response ___ Code Blue ___ Other (describe below) Pastoral Care Referral From ___ Patient ___ Family ___ Nurse ___ Physician ___ Metal Trimmer ___ Securities Analyst ___ Other (describe below) Sacrament/Intervention ___ Active listening ___ Anointing ___ Scientologist ___ Bereavement ___ Communion ___ Teresa exploration ___ ___ Life review ___ Prayer ___ Reconciliation ___ Sacrament of Sick ___ Supportive presence ___ Wedding ___ Other (describe below) Pastoral Comments patient was discharged before visit could be completed
== END 2024-05-28 12:31 | disposition home or self-care (01) | DRG 64 ==
LOC: ED 19:38 → PCU 19:59
PROVIDERS: Admitting Provider Internal Medicine; Emergency Provider Emergency Medicine; PCP Family Medicine; Visit Provider Family Medicine
DX: I63.9 Cerebral infarction, unspecified (principal); G92.8 Other toxic encephalopathy; N39.0 Urinary tract infection, site not specified; B95.2 Enterococcus as the cause of diseases classified elsewhere; E03.9 Hypothyroidism, unspecified; N18.9 Chronic kidney disease, unspecified; I12.9 Hypertensive chronic kidney disease with stage 1 through stage 4 chronic kidney disease, or unspecified chronic kidney disease; I48.91 Unspecified atrial fibrillation; M48.02 Spinal stenosis, cervical region; Z79.01 Long term (current) use of anticoagulants; Z79.82 Long term (current) use of aspirin; Z87.891 Personal history of nicotine dependence; R29.700 NIHSS score 0; Z79.891 Long term (current) use of opiate analgesic; B96.20 Unspecified Escherichia coli [E. coli] as the cause of diseases classified elsewhere
CPT/HCPCS: 36415; 70450; 70544; 70547; 70551; 80048; 80053; 80061; 81001; 83036; 83605; 83735; 84100; 85025; 87040; 87077; 87086; 87088; 87186; 92610; 93306; 94668; 97116; 97162; 97165; 97530; 97802; 99284; Q9957; A4216

== ENCOUNTER → 2024-09-13 | Outpatient (CLI) | payer MEDICARE, SELFPAY | END | disposition home or self-care (01) | LOC: SL 19:59 | PROVIDERS: PCP Family Medicine; Referring Provider Psychiatry & Neurology Sleep Medicine; Visit Provider Psychiatry & Neurology Sleep Medicine | DX: Z86.73 Personal history of transient ischemic attack (TIA), and cerebral infarction without residual deficits (principal); Z86.79 Personal history of other diseases of the circulatory system; G47.8 Other sleep disorders; R53.81 Other malaise; R53.83 Other fatigue; R40.0 Somnolence; G47.39 Other sleep apnea; G47.10 Hypersomnia, unspecified | CPT/HCPCS: 95810 ==

== ENCOUNTER → 2024-12-03 | Outpatient (CLI) | payer MEDICARE, SELFPAY ==
[2024-12-03 15:16] LABS: Hematocrit 34.0 % (37-47); Hemoglobin 10.7 g/dL (12.0-15.0); Immature Granulocytes Count 0.010 X10^3/uL (0.0-0.0); Mean Corp Hgb Conc 31.5 g/dL (32-36); Mean Corpuscular Volume 91.2 fL (81-99); Mean Platelet Vol. 9.7 fl (6.2-12.0); NRBC Flagged by Analyzer 0 % (0-5); Platelet Count 268 K/mm3 (150-450); RBC Distribution Width CV 14.2 % (11.6-14.6); RBC Distribution Width SD 47.8 fl (35.1-43.9); Red Blood Count 3.73 M/mm3 (4.2-5.4); White Blood Count 5.9 K/mm3 (4.4-11.0)
[2024-12-03 16:16] LABS: AST(SGOT) 56 U/L (<=31); Alanine Aminotransfer ALT/SGPT 55 U/L (<=34); Albumin, Serum 3.6 g/dL (3.4-4.8); Alkaline Phosphatase 206 U/L (35-104); Anion Gap 11 (5-15); BUN 24 mg/dL (4-19); BUN/Creat Ratio 17.0 RATIO (10-20); Calcium,Total 8.8 mg/dL (7.6-11.0); Carbon Dioxide 22.7 mmol/L (21.0-32.0); Chloride 108 mmol/L (98-108); Globulin 3.3 g/dL (2.2-4.2); Glucose 105 mg/dL (70-99); Potassium 4.4 mmol/L (3.3-5.1)
== END | disposition home or self-care (01) ==
LOC: LAB 14:05
PROVIDERS: PCP Family Medicine; Referring Provider Student in an Organized Health Care Education/Training Program; Visit Provider Student in an Organized Health Care Education/Training Program
DX: R19.5 Other fecal abnormalities (principal)
CPT/HCPCS: 36415; 80053; 85025

== ENCOUNTER → 2024-12-05 | Outpatient (CLI) | payer MEDICARE, SELFPAY ==
[2024-12-09 04:07] LABS: Calprotectin, Stool 639 ug/g (0-120)
[2024-12-11 02:07] LABS: Pancreatic Elastase, Fecal > 800 (>200)
== END | disposition home or self-care (01) ==
LOC: LABSPEC 14:22
PROVIDERS: PCP Family Medicine; Referring Provider Student in an Organized Health Care Education/Training Program; Visit Provider Student in an Organized Health Care Education/Training Program
DX: R19.5 Other fecal abnormalities (principal); K58.9 Irritable bowel syndrome, unspecified
CPT/HCPCS: 82274; 82653; 83630; 83993; 87177; 87209; 87329; 87493

== ENCOUNTER 2025-01-16 11:38 | Day surgery (SDC) | payer MEDICARE, SELFPAY ==
--- NOTE | 2025-01-14 11:28 | PAT.ANESEVAL ---
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 When Was Last Pacemaker Check QUESTION #4 FULL TEXT: You/Your Family Experience fever (hyperthermia) with Anesthesia Last Oral Intake Last Oral intake: Last Oral Intake NPO since Meds taken in AM with sips of water? Meds patient instructed to take am of surgery PONV PONV - cylinder inspector: PONV - cylinder inspector Female Yes 01/14/25 09:53 HX of Motion Sickness No 01/14/25 09:53 HX of N/V After Surgery No 01/14/25 09:53 Non-Smoker Yes 01/14/25 09:53 Duration of Surgery greater No 01/14/25 09:53 than 60 minutes Number of Risk Factors 2 01/14/25 09:53 PONV Score Moderate Risk 01/14/25 09:53 Height & Weight Height & Weight: Anesthesia: Height & Weight Height 5 ft 4 in 11/30/24 10:07 Respiratory Assessment Respiratory Assessment - cylinder inspector: Respiratory Tract Infection Hx - cylinder inspector Hx Respiratory Tract Infection No 01/14/25 09:53 STOP Sleep Apnea STOP Sleep Apnea - cylinder inspector: STOP Sleep Apnea - cylinder inspector Hx Hypertension No 01/14/25 09:53 Hx Sleep Apnea No 01/14/25 09:53 CPAP BIPAP Do you snore loudly (louder No 01/14/25 09:53 than talking or can be heard Do you often feel tired/ No 01/14/25 09:53 fatigued/ sleepy during daytime? Has anyone observed you stop No 01/14/25 09:53 breathing during sleep? STOP Results Negative 01/14/25 09:53 QUESTION #5 FULL TEXT : Do you snore loudly (louder than talking or can be heard through closed doors)? 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 Specify any problems Hx of Preganancy in last 3 No 01/14/25 09:53 Months Nurse Filling Out Transfusion JZOLLINGE 01/14/25 09:53 & Questions: Date: 01/14/25 01/14/25 09:53 Time: 09:55 01/14/25 09:53 Patient unable to answer at this time (ie. confused, unrespo /Reproduction History /Reproductive History - cylinder inspector: /Reproductive Hx- cylinder inspector Hx Now No 01/14/25 09:53 Gestational Age (in weeks): EDC: Hx Hx Para Hx Section SAB No 01/14/25 09:53 [facility] Medical History (Updated 01/14/25 @ 09:53 by Meghan Gallo) Wears glasses Alcohol use Thyroid disease Low iron Non-smoker Asthma History of echocardiogram Osteopenia History of right MCA stroke Chronic renal failure (CRF), stage 3b Allergic rhinitis Hypothyroidism Atrial fibrillation Hypothyroidism Atrial fibrillation Home Medications ?Medication ?Instructions ?Recorded ?Last Taken ?Type biotin 1,000 mcg chewable tablet 1,000 mcg PO DAILY supplement 11/11/21 05/25/24 History acetaminophen 325 mg capsule 650 mg (2 x 325 mg) PO Q6H PRN 10/26/22 Unknown Rx fever or pain #1 cap apixaban 2.5 mg tablet (Eliquis) 2.5 mg PO BID A-Fib #60 tabs 10/26/22 05/25/24 Rx levothyroxine 75 mcg tablet 75 mcg PO DAILY hypothyroid #30 10/26/22 05/25/24 Rx tabs ut-xcz-IO-vit X-rgbpks-fcohrfg 1 cap PO .QD 05/25/24 05/25/24 History aspirin 81 mg chewable tablet 81 mg PO BREAKFAST 21 days #21 tabs 05/28/24 Unknown Rx atorvastatin 40 mg tablet 40 mg PO QHS 30 days #30 tabs 05/28/24 Unknown Rx peg 3350-electrolytes 236 240 ml PO Q10M #4,000 mL 01/03/25 Unknown Rx gram-22.74 gram-6.74 gram-5.86 gram solution (Golytely) ferrous sulfate 324 mg (65 mg 324 mg PO .QOD 01/14/25 Unknown History iron) tablet,delayed release metoprolol tartrate 25 mg tablet 12.5 mg PO .QD blood pressure 01/14/25 Unknown History Allergy/AdvReac Type Severity Reaction Status Date / Time nitrofurantoin (From Allergy Hives Verified 01/14/25 09:44 Macrodantin) benzonatate (From Tessalon AdvReac Other Verified 01/14/25 09:44 Perles) Family History Father CAD (coronary artery disease) Diabetes Brother Multiple sclerosis Brother ALS (amyotrophic lateral sclerosis) Grandfather CAD (coronary artery disease) Surgical History (Updated 01/14/25 @ 09:53 by Mgehan Gallo) Hx of colonoscopy Status post open reduction with internal fixation (ORIF) of fracture of ankle S/P skin biopsy History of blepharoplasty History of hernia surgery History of eye surgery History of mandibular surgery Social History household members: none Smoking Status: Former smoker alcohol intake: current alcohol intake frequency: 0-2 drinks per day Alcohol type: wine details: 2 glasses of wine every 2 weeks. substance use type: does not use Audit: Pertinent Findings Pertinent Findings EKG Perinent findings: EKG performed 09/23/2022: Sinus bradycardia, otherwise normal EKG. Echo (EF%) pertinent findings: Echocardiogram performed 05/25/2024 Interpretation Summary Normal LV size. Left ventricular systolic function is normal. The left ventricular ejection fraction is 60 %. Stage 1 diastolic dysfunction. Recommendation Anesthesia Recommendation Anesthesia recommendation: OPTIMIZED for anesthesia
[2025-01-16] VITALS (8 sets, daily range): BP systolic 90–116; BP diastolic 61–68; PULSE 63–84; RESP 16–18; TEMP 36.2–36.6; O2SAT 67–100; BMI 29.8
[2025-01-16] MEDS: Lactated Ringers 1,000 ML 15 ML IV (12:16)
--- NOTE | 2025-01-16 12:41 | PCM.PRE.AN2 ---
ASA Classification* ASA Classification ASA Classification: 3 Assessment & Plan Anesthesia* Anesthesia Assessment Anesthesia Assessment: Discussed sedation and/or anesthesia options, risks, benefits, and alternatives with patient/parents/legal guardian/POA. Questions invited. The patient/parents/legal guardian/POA seems to understand and agrees to proceed with anesthesia plan. Reviewed the physical assessment, medical history, allergy history and patient home medications list prior to surgery/procedure/anesthetic and documented any changes. Performed airway and anesthesia risk assessments. Anesthesia Type Anesthesia Type: MAC History Source History Obtained from:: Patient and Chart Anesthesia Focused Assessment* Temperature: 97.2 F Pulse Rate: 84 Blood Pressure: 116/62 Respiratory Rate: 16 Pulse Ox: 98 Oxygen Delivery Method: Room Air Airway Assessment Mouth opens: >3 cm Mallampati Score: II Teeth Condition: Intact Neck Range of motion (ROM): Full ROM Labs Anesthesia Preop lab: CBC WBC 5.9 K/mm3 (4.4-11.0) 12/03/24 14:08 12/03/24 RBC 3.73 M/mm3 (4.2-5.4) L 12/03/24 14:08 12/03/24 Hgb 10.7 g/dL (12.0-15.0) L 12/03/24 14:08 12/03/24 Hct 34.0 % (37-47) L 12/03/24 14:08 12/03/24 Plt Count 268 K/mm3 (150-450) 12/03/24 14:08 12/03/24 CHEMISTRY Potassium 4.4 mmol/L (3.3-5.1) 12/03/24 14:08 12/03/24 Sodium 141 mmol/L (133-145) 12/03/24 14:08 12/03/24 Magnesium 2.1 mg/dL (1.6-2.6) 05/26/24 06:32 05/26/24 Phosphorus 3.0 mg/dL (2.5-4.9) 05/26/24 06:32 05/26/24 BUN 24 mg/dL (4-19) H 12/03/24 14:08 12/03/24 Creatinine 1.39 mg/dL (0.70-1.20) H 12/03/24 14:08 12/03/24 Glucose 105 mg/dL (70-99) H 12/03/24 14:08 12/03/24 POC Glucose 103 mg/dL (74-106) 09/23/22 10:19 09/23/22 TSH 1.16 uIU/mL (0.358-3.74) 09/23/22 10:22 09/23/22 COAG PT 14.2 SECONDS (11.7-14.9) 09/23/22 10:22 09/23/22 Pre-Assessment Diagnosis/Proposed Procedure Planned Operative Procedure(s): Colonoscopy Anesthesia History 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 When Was Last Pacemaker Check QUESTION #4 FULL TEXT: You/Your Family Experience fever (hyperthermia) with Anesthesia Last Oral Intake Last Oral intake: Last Oral Intake NPO since 21:30 01/16/25 12:03 Meds taken in AM with sips of No 01/16/25 12:03 water? Meds patient instructed to take am of surgery PONV PONV - director of hospitality: PONV - director of hospitality Female Yes 01/14/25 09:53 HX of Motion Sickness No 01/14/25 09:53 HX of N/V After Surgery No 01/14/25 09:53 Non-Smoker Yes 01/14/25 09:53 Duration of Surgery greater No 01/14/25 09:53 than 60 minutes Number of Risk Factors 2 01/14/25 09:53 PONV Score Moderate Risk 01/14/25 09:53 Height & Weight Height & Weight: Anesthesia: Height & Weight Height 5 ft 3.25 in 01/16/25 12:03 Weight: 77 kg 01/16/25 12:03 Body Mass Index (BMI) 29.8 01/16/25 12:03 Respiratory Assessment Respiratory Assessment - director of hospitality: Respiratory Tract Infection Hx - director of hospitality Hx Respiratory Tract Infection No 01/14/25 09:53 STOP Sleep Apnea STOP Sleep Apnea - director of hospitality: STOP Sleep Apnea - director of hospitality Hx Hypertension No 01/14/25 09:53 Hx Sleep Apnea No 01/14/25 09:53 CPAP BIPAP Do you snore loudly (louder No 01/14/25 09:53 than talking or can be heard Do you often feel tired/ No 01/14/25 09:53 fatigued/ sleepy during daytime? Has anyone observed you stop No 01/14/25 09:53 breathing during sleep? STOP Results Negative 01/14/25 09:53 QUESTION #5 FULL TEXT : Do you snore loudly (louder than talking or can be heard through closed doors)? 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 Specify any problems Hx of Preganancy in last 3 No 01/14/25 09:53 Months Nurse Filling Out Transfusion SebastiánZOLLRACHAEL 01/14/25 09:53 & Questions: Date: 01/14/25 01/14/25 09:53 Time: 09:55 01/14/25 09:53 Patient unable to answer at this time (ie. confused, unrespo /Reproduction History /Reproductive History - director of hospitality: /Reproductive Hx- director of hospitality Hx Now No 01/14/25 09:53 Gestational Age (in weeks): EDC: Hx Hx Para Hx Section SAB No 01/14/25 09:53 Active Medications Active Medications: Current Medications Generic Name Dose Route Start Last Admin Trade Name Freq PRN Reason Stop Dose Admin Lactated Ringer's 1,000 mls @ 15 mls/hr 01/16/25 12:00 01/16/25 12:16 IV 15 mls/hr .Q48H AGATA Administration PFSH Medical History (Updated 01/14/25 @ 09:53 by Meghan Gallo) Wears glasses Alcohol use Thyroid disease Low iron Non-smoker Asthma History of echocardiogram Osteopenia History of right MCA stroke Chronic renal failure (CRF), stage 3b Allergic rhinitis Hypothyroidism Atrial fibrillation Hypothyroidism Atrial fibrillation Home Medications ?Medication ?Instructions ?Recorded ?Last Taken ?Type biotin 1,000 mcg chewable tablet 1,000 mcg PO DAILY supplement 11/11/21 05/25/24 History acetaminophen 325 mg capsule 650 mg (2 x 325 mg) PO Q6H PRN 10/26/22 Unknown Rx fever or pain #1 cap apixaban 2.5 mg tablet (Eliquis) 2.5 mg PO BID A-Fib #60 tabs 10/26/22 05/25/24 Rx levothyroxine 75 mcg tablet 75 mcg PO DAILY hypothyroid #30 10/26/22 05/25/24 Rx tabs cl-usn-TW-vit A-lesfbv-qrhtpde 1 cap PO .QD 05/25/24 05/25/24 History aspirin 81 mg chewable tablet 81 mg PO BREAKFAST 21 days #21 tabs 05/28/24 Unknown Rx atorvastatin 40 mg tablet 40 mg PO QHS 30 days #30 tabs 05/28/24 Unknown Rx peg 3350-electrolytes 236 240 ml PO Q10M #4,000 mL 01/03/25 Unknown Rx gram-22.74 gram-6.74 gram-5.86 gram solution (Golytely) ferrous sulfate 324 mg (65 mg 324 mg PO .QOD 01/14/25 Unknown History iron) tablet,delayed release metoprolol tartrate 25 mg tablet 12.5 mg PO .QD blood pressure 01/14/25 Unknown History Allergy/AdvReac Type Severity Reaction Status Date / Time nitrofurantoin (From Allergy Hives Verified 01/14/25 09:44 Macrodantin) benzonatate (From Tessalon AdvReac Other Verified 01/14/25 09:44 Perles) Family History Father CAD (coronary artery disease) Diabetes Brother Multiple sclerosis Brother ALS (amyotrophic lateral sclerosis) Grandfather CAD (coronary artery disease) Surgical History (Updated 01/14/25 @ 09:53 by Meghan Gallo) Hx of colonoscopy Status post open reduction with internal fixation (ORIF) of fracture of ankle S/P skin biopsy History of blepharoplasty History of hernia surgery History of eye surgery History of mandibular surgery Social History household members: none Smoking Status: Former smoker alcohol intake: current alcohol intake frequency: 0-2 drinks per day Alcohol type: wine details: 2 glasses of wine every 2 weeks. substance use type: does not use Review of Systems (Anesthesia) ROS Narrative System reviewed and no additional complaints, except as documented.
--- NOTE | 2025-01-16 12:45 | COLBX_PTH ---
PATIENT: NAOMI HARRISON LOC: EN U#:[id number] AGE/SX: 84/F ROOM: RE01/16/[address]: Dr. Paulino Ro DO : 1940 BED: DIS: 01/16/2025 SPEC #: [id number] RECD: 01/16/25 15:15 STATUS: SHAYNA REMaddy #: [id number] KARLOS: 01/16/25 12:[address]: Paulino Ro DEPT: SURGICAL PATHOLOGY RECD BY: Audi Kent ENTERED: 01/17/25 10:27 SP TYPE: COLON BX ZAIDA DR: Dr. Reddy Crowe MD Tissues: A - Sigmoid colon biopsy Procedures: Surgery Specimen Level IV HEADER OPERATION: Colonoscopy, biopsy PRE-OP DIAGNOSIS: Elevated LFT's, abdominal cramping, loose stools TISSUE SUBMITTED: A- Sigmoid biopsy MICROSCOPIC DIAGNOSIS A. Sigmoid colon, biopsy: - no specific pathologic change. MICROSCOPIC DESCRIPTION Slides are reviewed. GROSS DESCRIPTION A. Received in fixative is one container labeled with the patient's name and designated Sigmoid biopsy. The specimen consists of four irregular fragments of light strange soft tissue that measure 0.3 to 0.5 cm. The specimen is totally submitted in one cassette. DE 01/17/2025 CPT:76091
--- NOTE | 2025-01-16 13:17 | HP.PCM_ITS ---
[facility] - General General Date of Admission: 01/16/25 Date of Service: 01/16/25 Chief Complaint: abdominal pain and diarrhea HPI Narrative NAOMI HARRISON, is a 84 F who presents with Chief Complaint: abd pain Over the past year and a half pt has started having intermittent episodes of lower abdominal cramping and loose stools. These episodes happen at least once per week. It starts with cramping and then she will get diarrhea. It will petey nue for a few hours. SHe takes Imodium during this however this will make her constipated during the following days. In between episodes, she has a daily bm and denies constipation. It is not triggered by eating but is sometimes triggered after drinking coffee or alcohol. Last colonoscopy was about 5-10 years ago. Biochemical work up: hgb low, LFTs H Stool 7.24.25; calprotectin 639 H, elastase wnl, O&P negative, Giardia negative OV 8.14.25 patient continues to have abdominal cramping and loose stool 1 time per week. In between she has formed normal stools. She is scheduled for colonoscopy in a few weeks. She has concerns about sedation and stopping her Eliquis. She has had elevated liver enzymes for few months now. Her Lipitor was stopped however her LFTs continue to be elevated. She denies frequent use of acetaminophen. She denies daily alcohol consumption. She does still have her gallbladder. [facility] Medical History Wears glasses Alcohol use Thyroid disease Low iron Non-smoker Asthma History of echocardiogram Osteopenia History of right MCA stroke Chronic renal failure (CRF), stage 3b Allergic rhinitis Hypothyroidism Atrial fibrillation Hypothyroidism Atrial fibrillation Home Medications ?Medication ?Instructions ?Recorded ?Last Taken ?Type biotin 1,000 mcg chewable tablet 1,000 mcg PO DAILY da silva pplement 11/11/21 05/25/24 History acetaminophen 325 mg capsule 650 mg (2 x 325 mg) PO Q6 H PRN 10/26/22 Unknown Rx fever or pain #1 cap apixaban 2.5 mg tablet (Eliquis) 2.5 mg PO BID A-Fib # 60 tabs 10/26/22 05/25/24 Rx levothyroxine 75 mcg tablet 75 mcg PO DAILY hypothyroi d #30 10/26/22 05/25/24 Rx tabs ui-rou-AR-vit C-eyqkzj-amjqxtk 1 cap PO .QD 05/25/24 0 05/25/24 History aspirin 81 mg chewable tablet 81 mg PO BREAKFAST 21 da ys #21 tabs 05/28/24 Unknown Rx atorvastatin 40 mg tablet 40 mg PO QHS 30 days #30 tab s 05/28/24 Unknown Rx peg 3350-electrolytes 236 240 ml PO Q10M #4,000 mL Unknown Rx gram-22.74 gram-6.74 gram-5.86 gram solution (Golytely) ferrous sulfate 324 mg (65 mg 324 mg PO .QOD 01/14/25 Unknown History iron) tablet,delayed release metoprolol tartrate 25 mg tablet 12.5 mg PO .QD blood pressure 01/14/25 Unknown History Allergy/AdvReac Type Severity Reaction Status Date / Time nitrofurantoin (From Allergy Hives Verified 01/14/25 09:44 Macrodantin) benzonatate (From Tessalon AdvReac Other Verified 01/14/25 09:44 Perles) Family History Father CAD (coronary artery disease) Diabetes Brother Multiple sclerosis Brother ALS (amyotrophic lateral sclerosis) Grandfather CAD (coronary artery disease) Surgical History Hx of colonoscopy Status post open reduction with internal fixation (ORIF) of fracture of ankle S/P skin biopsy History of blepharoplasty History of hernia surgery History of eye surgery History of mandibular surgery Social History household members: none Smoking Status: Former smoker alcohol intake: current alcohol intake frequency: 0-2 drinks per day Alcohol type: wine details: 2 glasses of wine every 2 weeks. substance use type: does not use ROS Constitutional Constitutional: Denies fatigue, fever(s), poor appetite, weight gain or weight loss Gastrointestinal Gastrointestinal: Denies belching, bloating, change in bowel habits, change in stool character, chewing difficulty, coffee ground emesis, constipation, cramping, diarrhea, dyspepsia, dysphagia, early satiety, excessive flatus, fecal incontinence, heartburn, hematemesis, hematochezia, hemorrhoids, loose stools, melena, nausea, odynophagia, rectal bleeding, tenesmus, vomiting or weight changes Vital Signs Vital Signs Vital Signs: 01/16/25 12:03 01/16/25 12:03 01/16/25 12:41 Temperature 97.2 F L 97.2 F L Temperature Source Temporal Pulse Rate 84 84 Respiratory Rate 16 16 Respiratory Pattern Normal Blood Pressure 116/62 116/62 Blood Pressure Mean 80 Blood Pressure Source Monitor Blood Pressure Position Semi-Fowlers Blood Pressure Location Right Arm Pulse Ox 98 98 Oxygen Delivery Method Room Air Weight Weight: 169 lb 12.095 oz Body Mass Index (BMI) 29.8 Physical Exam Const alert, oriented x3, no apparent distress and healthy appearing General Appearance: cooperative GI normal to inspection, nondistended, normoactive bowel sounds, soft to palpation, non-tender and non-distended Percussion: normal to percussion Rectal Exam: deferred Assessment & Plan Assessment/Plan (1) Elevated LFTs: (2) Abdominal cramping: (3) Loose stools: PLAN: Assessment and Plan Assessment and Plan (1) Elevated LFTs: Status: Acute Plan: Noami is an 84-year-old female patient who established with our clinic in November 2024 for episodes of abdominal cramping and loose stool. Patient underwent stool testing and biochemical workup. Stool was negative for infection but she did have an elevated calprotectin in the 600s. She was scheduled for colonoscopy. Blood work with a low hemoglobin and elevated LFTs. Today patient continues to have weekly episodes of abdominal cramping and loose stool. She is scheduled for colonoscopy at the end of December. She endorses that her LFTs have been elevated over the past few months. Her [facility] care provider stopped her Lipitor but LFTs continue to be elevated. She has not yet restarted her Lipitor. I have ordered a gallbladder ultrasound. She will also have blood work for viral hepatitis. She denies alcohol or acetaminophen use. - Colonoscopy - Gallbladder ultrasound - Viral hepatitis panel - Follow-up after colonoscopy (2) Abdominal cramping: Status: Acute (3) Loose stools: Status: Acute Orders:
--- NOTE | 2025-01-16 14:07 | PCM.POST.ANE ---
Anesthesia: Postop Eval I Current Vital Signs Temperature: 97.6 F Pulse Rate: 67 Blood Pressure: 93/61 Respiratory Rate: 16 Pulse Ox: 67 Oxygen Delivery Method: Room Air Assessment Airway patent: Yes Spontaneous unlabored respirations: Yes Mental status: Awake and Calm nausea: No Vomiting: No Anesthesia Complication: No Fluid Hydration Crystalloid volume administer (ml): 900 Total IV fluid infused: 900 Progress Note Anesthesia document: Postop Eval 1 completed: Yes
--- NOTE | 2025-01-16 14:12 | OP.COLON_ITS ---
Patient Name: Radha Joshua Procedure Date: 01/16/2025 1:23 PM Date of : 1940 Age: 84 Procedure: Colonoscopy Indications: Abdominal pain in the left lower quadrant Providers: Paulino Ro DO Referring MD: Reddy Crowe Medicines: Monitored Anesthesia Care Patient Profile: This is an 84 year old female. Refer to note in patient chart for documentation of history and physical. Last Colonoscopy: more than 10 years ago. Complications: No immediate complications. Procedure: Pre-Anesthesia Assessment: - Prior to the procedure, a History and Physical was performed, and patient medications and allergies were reviewed. The patient is competent. The risks and benefits of the procedure and the sedation options and risks were discussed with the patient. All questions were answered and informed consent was obtained. Patient identification and proposed procedure were verified by the physician in the pre-procedure area. Mental Status Examination: alert and oriented. Airway Examination: normal oropharyngeal airway and neck mobility. Respiratory Examination: clear to auscultation. CV Examination: normal. Prophylactic Antibiotics: The patient does not require prophylactic antibiotics. Prior Anticoagulants: The patient has taken no anticoagulant or antiplatelet agents. ASA Grade Assessment: II - A patient with mild systemic disease. After reviewing the risks and benefits, the patient was deemed in satisfactory condition to undergo the procedure. The anesthesia plan was to use monitored anesthesia care (MAC). Immediately prior to administration of medications, the patient was re-assessed for adequacy to receive sedatives. The heart rate, respiratory rate, oxygen saturations, blood pressure, adequacy of pulmonary ventilation, and response to care were monitored throughout the procedure. The physical status of the patient was re-assessed after the procedure. After I obtained informed consent, the scope was passed under direct vision. Throughout the procedure, the patient's blood pressure, pulse, and oxygen saturations were monitored continuously. The pediatric colonoscope was introduced through the anus and advanced to the cecum, identified by appendiceal orifice and ileocecal valve. The colonoscopy was performed without difficulty. The patient tolerated the procedure well. The quality of the bowel preparation was adequate. The ileocecal valve, appendiceal orifice, and rectum were photographed. Scope In: 1:37:05 PM Scope Withdrawal Time 0 hours 12 minutes 28 seconds Scope Out: 1:53:58 PM Total Procedure Duration Time 0 hours 16 minutes 53 seconds Findings: The perianal and digital rectal examinations were normal. Segmental moderate mucosal changes characterized by altered vascularity, congestion (edema), erythema, friability, granularity and loss of vascularity were found in the recto-sigmoid colon, in the sigmoid colon and in the descending colon. Biopsies were taken with a cold forceps for histology. Verification of patient identification for the specimen was done. Estimated blood loss was minimal. Multiple small and large-mouthed diverticula were found in the recto-sigmoid colon, sigmoid colon and descending colon. Impression: - Segmental moderate mucosal changes were found in the recto-sigmoid colon, in the sigmoid colon and in the descending colon secondary to ischemic colitis. Biopsied. Recommendation: - Discharge patient to home. - Resume previous diet. - Continue present medications. - Await pathology results. - No repeat colonoscopy due to age. Procedure Code(s): --- Professional --- 42775, Colonoscopy, flexible; with biopsy, single or multiple CPT copyright 2021 [employer]. All rights reserved. The codes documented in this report are preliminary and upon orthopedic physical therapist review may be revised to meet current compliance requirements. Paulino Ro DO 01/16/2025 2:11:38 PM This report has been signed electronically. Number of Addenda: 0 Note Initiated On: 01/16/2025 1:23 PM
--- NOTE | 2025-01-16 14:12 | OP.PROVAT_ITS ---
01/16/2025 Reddy Crowe [address] [place] [address] Re : Colonoscopy procedure for Radha Joshua Dear Dr. Crowe This procedure was performed on Thursday, January 16, 2025. My impressions and recommendations are as follows: Impressions : - Segmental moderate mucosal changes were found in the recto-sigmoid colon, in the sigmoid colon and in the descending colon secondary to ischemic colitis. Biopsied. Recommendations : - Discharge patient to home. - Resume previous diet. - Continue present medications. - Await pathology results. - No repeat colonoscopy due to age. My findings are described in the full procedure note, which is enclosed. If I can be of further assistance, please feel free to contact me at . Sincerely, Paulino Ro, 01/16/2025 2:11:38 PM This report has been signed electronically.
--- NOTE | 2025-01-16 14:40 | PCM.POSTANE2 ---
Anesthesia Postop Eval I Sum Postop Eval Completion status Anesthesia document: Postop Eval 1 completed: Yes Anesthesia Postop Eval I Summary Anesthesia Postop Eval I Summary: Anesthesia Postop Eval I: Assessment Summary Airway patent Yes 01/16/25 14:08 [email or web address] Spontaneous unlabored Yes 01/16/25 14:08 [email or web address] respirations Mental status Awake,Calm 01/16/25 14:08 [email or web address] nausea No 01/16/25 14:08 [email or web address] Vomiting No 01/16/25 14:08 [email or web address] Anesthesia Postop Eval I: Fluid Summary Crystalloid volume administer 900 01/16/25 14:08 [email or web address] (ml) Colloids volume administered ( ml) Blood Product volume administered (ml) Total IV fluid infused 900 01/16/25 14:08 [email or web address] Anesthesia Postop Eval I: Summary Notes Anesthesia Complication No 01/16/25 14:08 [email or web address] Anesthesia Complication Comment: Post-operative progress note Anesthesia: Postop Eval II Evaluation Mental status: Awake Pain Level: 0 nausea: No Vomiting: No Complications Anesthesia Complication: No
== END 2025-01-16 14:36 | disposition home or self-care (01) ==
LOC: EN 11:38 → AC 11:40
PROVIDERS: PCP Family Medicine; Referring Provider Family Medicine; Visit Provider Internal Medicine Gastroenterology
PROC: 0DJD8ZZ Inspection of Lower Intestinal Tract, Via Natural or Artificial Opening Endoscopic (ICD-10-PCS; CPT 45378; principal; 2025-01-16 12:40)
DX: K55.051 Focal (segmental) acute (reversible) ischemia of intestine, part unspecified (principal); I48.91 Unspecified atrial fibrillation; N18.32 Chronic kidney disease, stage 3b; K57.30 Diverticulosis of large intestine without perforation or abscess without bleeding; R94.5 Abnormal results of liver function studies; Z79.01 Long term (current) use of anticoagulants; Z79.899 Other long term (current) drug therapy; Z87.891 Personal history of nicotine dependence
CPT/HCPCS: 45380; 88305; J2405

== ENCOUNTER 2025-01-30 10:58 | Emergency (ER) | payer MEDICARE, SELFPAY ==
[2025-01-30] VITALS (24 sets, daily range): BP systolic 104–148; BP diastolic 58–103; PULSE 52–80; RESP 9–21; TEMP 36.5–36.6; O2SAT 92–100; BMI 31.1
--- NOTE | 2025-01-30 11:41 | EX.ED.DYSGE1 ---
HPI <Dr. Jasson Garcia DO - Last Filed: 01/30/25 17:38> History of Present Illness Chief Complaint: Syncope Informant: patient and family Onset/Context/Timing Onset: Today Context: Sudden Onset Timing: Intermittent and Lasts (Approximately 15 seconds) Quality: Lightheaded Location: Generalized Worsened by: Nothing Relieved by: Nothing Narrative Narrative: Patient presents with a syncopal episode that occurred today. Patient states it began rather suddenly. Patient was visiting her daughter here in the hospital when she had a syncopal episode. Patient states she felt lightheaded prior to the syncopal episode. Family states that she became stiff during the syncopal episode. Family states only lasted for few seconds. Family states the patient has not been eating much lately. Patient admits to some subjective fevers and chills at home. Patient denies any chest pain or shortness of breath. Patient denies any cough or palpitations. [facility] <Dr. Jasson Garcia DO - Last Filed: 01/30/25 17:38> [facility] Medical History Wears glasses Alcohol use Thyroid disease Low iron Non-smoker Asthma History of echocardiogram Osteopenia History of right MCA stroke Chronic renal failure (CRF), stage 3b Allergic rhinitis Hypothyroidism Atrial fibrillation Hypothyroidism Atrial fibrillation Home Medications ?Medication ?Instructions ?Recorded ?Last Taken ?Type biotin 1,000 mcg chewable tablet 1,000 mcg PO DAILY supplement 11/11/21 05/25/24 History acetaminophen 325 mg capsule 650 mg (2 x 325 mg) PO Q6H PRN 10/26/22 Unknown Rx fever or pain #1 cap apixaban 2.5 mg tablet (Eliquis) 2.5 mg PO BID A-Fib #60 tabs 10/26/22 05/25/24 Rx levothyroxine 75 mcg tablet 75 mcg PO DAILY hypothyroid #30 10/26/22 05/25/24 Rx tabs [id number]-vit J-[id number]-[id number] 1 cap PO .QD 05/25/24 05/25/24 History aspirin 81 mg chewable tablet 81 mg PO BREAKFAST 21 days #21 tabs 05/28/24 Unknown Rx peg 3350-electrolytes 236 240 ml PO Q10M #4,000 mL 01/03/25 Unknown Rx gram-22.74 gram-6.74 gram-5.86 gram solution (Golytely) ferrous sulfate 324 mg (65 mg 324 mg PO .QOD 01/14/25 Unknown History iron) tablet,delayed release metoprolol tartrate 25 mg tablet 12.5 mg PO .QD blood pressure 01/14/25 Unknown History Allergy/AdvReac Type Severity Reaction Status Date / Time nitrofurantoin (From Allergy Hives Verified 01/30/25 11:02 Macrodantin) benzonatate (From Tessalon AdvReac Other Verified 01/30/25 11:02 Perles) Family History Father CAD (coronary artery disease) Diabetes Brother Multiple sclerosis Brother ALS (amyotrophic lateral sclerosis) Grandfather CAD (coronary artery disease) Surgical History Hx of colonoscopy Status post open reduction with internal fixation (ORIF) of fracture of ankle S/P skin biopsy History of blepharoplasty History of hernia surgery History of eye surgery History of mandibular surgery Social History household members: none Smoking Status: Former smoker alcohol intake: current alcohol intake frequency: 0-2 drinks per day Alcohol type: wine details: 2 glasses of wine every 2 weeks. substance use type: does not use ROS <Dr. Jasson Garcia DO - Last Filed: 01/30/25 17:38> ROS ED Constitutional Constitutional ED: Reports chills, fever(s) and subjective Eyes Eyes: Denies blurry vision or change in vision ENT ENT ED: Denies rhinorrhea or sore throat Cardiovascular Cardiovascular: Denies chest pain or palpitations Respiratory/Chest Respiratory/Chest: Denies cough or dyspnea Gastrointestinal Gastrointestinal: Denies nausea or vomiting Genitourinary Genitourinary ED: Denies dysuria or hematuria Musculoskeletal Musculoskeletal: Denies back pain or neck pain Integumentary Denies abscess or rash Neurologic Neurologic: Denies headache(s) or weakness Allergic/Immunologic Allergic/Immunologic ED: Denies mouth swelling or urticaria EXAM <Dr. Jasson Garcia DO - Last Filed: 01/30/25 17:38> Physical Exam Const Vital Signs: 01/30/25 10:58 01/30/25 10:58 01/30/25 11:58 Temperature 98 F Temperature Source Temporal Pulse Rate 61 56 L Pulse Rate [Lying] Pulse Rate [Sitting (for 1 minute prior to obtaining)] Pulse Rate [Standing (for 1 minute prior to obtaining)] Respiratory Rate 16 16 Respiratory Effort Normal Non-Labored Respiratory Pattern Normal Blood Pressure 104/60 119/58 L Blood Pressure [Lying] Blood Pressure [Sitting (for 1 minute prior to obtaining)] Blood Pressure [Standing (for 1 minute prior to obtaining)] Blood Pressure Mean 74 78 Blood Pressure Mean [Lying] Blood Pressure Mean [Sitting (for 1 minute prior to obtaining)] Blood Pressure Mean [Standing (for 1 minute prior to obtaining)] Pulse Ox 98 Oxygen Delivery Method Room Air Room Air 01/30/25 12:00 01/30/25 12:00 01/30/25 12:15 Temperature Temperature Source Pulse Rate 54 L 56 L 54 L Pulse Rate [Lying] Pulse Rate [Sitting (for 1 minute prior to obtaining)] Pulse Rate [Standing (for 1 minute prior to obtaining)] Respiratory Rate 18 14 16 Respiratory Effort Respiratory Pattern Blood Pressure 125/65 H 119/58 L Blood Pressure [Lying] Blood Pressure [Sitting (for 1 minute prior to obtaining)] Blood Pressure [Standing (for 1 minute prior to obtaining)] Blood Pressure Mean 85 76 Blood Pressure Mean [Lying] Blood Pressure Mean [Sitting (for 1 minute prior to obtaining)] Blood Pressure Mean [Standing (for 1 minute prior to obtaining)] Pulse Ox 98 97 96 Oxygen Delivery Method Room Air 01/30/25 12:30 01/30/25 12:45 01/30/25 13:00 Temperature Temperature Source Pulse Rate 52 L 55 L 80 Pulse Rate [Lying] Pulse Rate [Sitting (for 1 minute prior to obtaining)] Pulse Rate [Standing (for 1 minute prior to obtaining)] Respiratory Rate 16 16 18 Respiratory Effort Respiratory Pattern Blood Pressure 130/63 H 132/86 H Blood Pressure [Lying] Blood Pressure [Sitting (for 1 minute prior to obtaining)] Blood Pressure [Standing (for 1 minute prior to obtaining)] Blood Pressure Mean 84 101 Blood Pressure Mean [Lying] Blood Pressure Mean [Sitting (for 1 minute prior to obtaining)] Blood Pressure Mean [Standing (for 1 minute prior to obtaining)] Pulse Ox 96 97 98 Oxygen Delivery Method 01/30/25 13:00 01/30/25 13:15 01/30/25 13:30 Temperature Temperature Source Pulse Rate 58 L 52 L 52 L Pulse Rate [Lying] Pulse Rate [Sitting (for 1 minute prior to obtaining)] Pulse Rate [Standing (for 1 minute prior to obtaining)] Respiratory Rate 15 12 9 L Respiratory Effort Respiratory Pattern Blood Pressure 132/67 H 142/60 H Blood Pressure [Lying] Blood Pressure [Sitting (for 1 minute prior to obtaining)] Blood Pressure [Standing (for 1 minute prior to obtaining)] Blood Pressure Mean 87 84 Blood Pressure Mean [Lying] Blood Pressure Mean [Sitting (for 1 minute prior to obtaining)] Blood Pressure Mean [Standing (for 1 minute prior to obtaining)] Pulse Ox 100 98 Oxygen Delivery Method 01/30/25 13:45 01/30/25 14:00 01/30/25 14:15 Temperature Temperature Source Pulse Rate 53 L 53 L 55 L Pulse Rate [Lying] Pulse Rate [Sitting (for 1 minute prior to obtaining)] Pulse Rate [Standing (for 1 minute prior to obtaining)] Respiratory Rate 11 L 11 L 13 Respiratory Effort Respiratory Pattern Blood Pressure 148/63 H Blood Pressure [Lying] Blood Pressure [Sitting (for 1 minute prior to obtaining)] Blood Pressure [Standing (for 1 minute prior to obtaining)] Blood Pressure Mean 88 Blood Pressure Mean [Lying] Blood Pressure Mean [Sitting (for 1 minute prior to obtaining)] Blood Pressure Mean [Standing (for 1 minute prior to obtaining)] Pulse Ox 100 100 95 Oxygen Delivery Method 01/30/25 14:27 01/30/25 14:28 01/30/25 14:30 Temperature Temperature Source Pulse Rate 56 L 55 L Pulse Rate [Lying] Pulse Rate [Sitting (for 1 minute prior to obtaining)] Pulse Rate [Standing (for 1 minute prior to obtaining)] Respiratory Rate 21 H 13 Respiratory Effort Respiratory Pattern Blood Pressure 125/103 H 138/67 H 120/69 Blood Pressure [Lying] Blood Pressure [Sitting (for 1 minute prior to obtaining)] Blood Pressure [Standing (for 1 minute prior to obtaining)] Blood Pressure Mean 111 87 84 Blood Pressure Mean [Lying] Blood Pressure Mean [Sitting (for 1 minute prior to obtaining)] Blood Pressure Mean [Standing (for 1 minute prior to obtaining)] Pulse Ox 98 100 Oxygen Delivery Method 01/30/25 14:32 01/30/25 14:37 01/30/25 14:45 Temperature Temperature Source Pulse Rate 66 55 L Pulse Rate [Lying] 55 L Pulse Rate [Sitting (for 1 minute prior to obtaining)] 60 Pulse Rate [Standing (for 1 minute prior to obtaining)] 67 Respiratory Rate 21 H 10 L Respiratory Effort Respiratory Pattern Blood Pressure 111/62 Blood Pressure [Lying] 138/67 H Blood Pressure [Sitting (for 1 minute prior to obtaining)] 120/69 Blood Pressure [Standing (for 1 minute prior to obtaining)] 111/62 Blood Pressure Mean 76 Blood Pressure Mean [Lying] 90 Blood Pressure Mean [Sitting (for 1 minute prior to obtaining)] 86 Blood Pressure Mean [Standing (for 1 minute prior to obtaining)] 78 Pulse Ox 92 Oxygen Delivery Method 01/30/25 15:00 01/30/25 15:00 01/30/25 15:15 Temperature Temperature Source Pulse Rate 53 L 52 L Pulse Rate [Lying] Pulse Rate [Sitting (for 1 minute prior to obtaining)] Pulse Rate [Standing (for 1 minute prior to obtaining)] Respiratory Rate 13 9 L Respiratory Effort Respiratory Pattern Blood Pressure 147/66 H 147/66 H Blood Pressure [Lying] Blood Pressure [Sitting (for 1 minute prior to obtaining)] Blood Pressure [Standing (for 1 minute prior to obtaining)] Blood Pressure Mean 89 89 Blood Pressure Mean [Lying] Blood Pressure Mean [Sitting (for 1 minute prior to obtaining)] Blood Pressure Mean [Standing (for 1 minute prior to obtaining)] Pulse Ox 100 100 Oxygen Delivery Method 01/30/25 16:31 01/30/25 17:00 01/30/25 18:00 Temperature Temperature Source Pulse Rate 61 75 64 Pulse Rate [Lying] Pulse Rate [Sitting (for 1 minute prior to obtaining)] Pulse Rate [Standing (for 1 minute prior to obtaining)] Respiratory Rate 18 19 H 18 Respiratory Effort Respiratory Pattern Blood Pressure 127/71 H 133/60 H 140/71 H Blood Pressure [Lying] Blood Pressure [Sitting (for 1 minute prior to obtaining)] Blood Pressure [Standing (for 1 minute prior to obtaining)] Blood Pressure Mean 89 79 94 Blood Pressure Mean [Lying] Blood Pressure Mean [Sitting (for 1 minute prior to obtaining)] Blood Pressure Mean [Standing (for 1 minute prior to obtaining)] Pulse Ox 97 100 96 Oxygen Delivery Method Room Air Positive well nourished and well developed General Appearance ED: well developed and NAD HEENT Reports moist mucous membranes Neck supple and no JVD Resp normal respiratory effort and clear to auscultation bilaterally Cardio regular rate and regular rhythm GI non-tender and non-distended Palpation: soft Neuro oriented x3, CN's II-XII intact bilaterally and no sensory deficits noted Sensorium / Orientation: alert Motor Exam: strength 5/5 throughout Psych mental status grossly normal <Dr. Hernán Ricks, DO - Last Filed: 01/30/25 18:51> Physical Exam Const Vital Signs: 01/30/25 10:58 01/30/25 10:58 01/30/25 11:58 Temperature 98 F Temperature Source Temporal Pulse Rate 61 56 L Pulse Rate [Lying] Pulse Rate [Sitting (for 1 minute prior to obtaining)] Pulse Rate [Standing (for 1 minute prior to obtaining)] Respiratory Rate 16 16 Respiratory Effort Normal Non-Labored Respiratory Pattern Normal Blood Pressure 104/60 119/58 L Blood Pressure [Lying] Blood Pressure [Sitting (for 1 minute prior to obtaining)] Blood Pressure [Standing (for 1 minute prior to obtaining)] Blood Pressure Mean 74 78 Blood Pressure Mean [Lying] Blood Pressure Mean [Sitting (for 1 minute prior to obtaining)] Blood Pressure Mean [Standing (for 1 minute prior to obtaining)] Pulse Ox 98 Oxygen Delivery Method Room Air Room Air 01/30/25 12:00 01/30/25 12:00 01/30/25 12:15 Temperature Temperature Source Pulse Rate 54 L 56 L 54 L Pulse Rate [Lying] Pulse Rate [Sitting (for 1 minute prior to obtaining)] Pulse Rate [Standing (for 1 minute prior to obtaining)] Respiratory Rate 18 14 16 Respiratory Effort Respiratory Pattern Blood Pressure 125/65 H 119/58 L Blood Pressure [Lying] Blood Pressure [Sitting (for 1 minute prior to obtaining)] Blood Pressure [Standing (for 1 minute prior to obtaining)] Blood Pressure Mean 85 76 Blood Pressure Mean [Lying] Blood Pressure Mean [Sitting (for 1 minute prior to obtaining)] Blood Pressure Mean [Standing (for 1 minute prior to obtaining)] Pulse Ox 98 97 96 Oxygen Delivery Method Room Air 01/30/25 12:30 01/30/25 12:45 01/30/25 13:00 Temperature Temperature Source Pulse Rate 52 L 55 L 80 Pulse Rate [Lying] Pulse Rate [Sitting (for 1 minute prior to obtaining)] Pulse Rate [Standing (for 1 minute prior to obtaining)] Respiratory Rate 16 16 18 Respiratory Effort Respiratory Pattern Blood Pressure 130/63 H 132/86 H Blood Pressure [Lying] Blood Pressure [Sitting (for 1 minute prior to obtaining)] Blood Pressure [Standing (for 1 minute prior to obtaining)] Blood Pressure Mean 84 101 Blood Pressure Mean [Lying] Blood Pressure Mean [Sitting (for 1 minute prior to obtaining)] Blood Pressure Mean [Standing (for 1 minute prior to obtaining)] Pulse Ox 96 97 98 Oxygen Delivery Method 01/30/25 13:00 01/30/25 13:15 01/30/25 13:30 Temperature Temperature Source Pulse Rate 58 L 52 L 52 L Pulse Rate [Lying] Pulse Rate [Sitting (for 1 minute prior to obtaining)] Pulse Rate [Standing (for 1 minute prior to obtaining)] Respiratory Rate 15 12 9 L Respiratory Effort Respiratory Pattern Blood Pressure 132/67 H 142/60 H Blood Pressure [Lying] Blood Pressure [Sitting (for 1 minute prior to obtaining)] Blood Pressure [Standing (for 1 minute prior to obtaining)] Blood Pressure Mean 87 84 Blood Pressure Mean [Lying] Blood Pressure Mean [Sitting (for 1 minute prior to obtaining)] Blood Pressure Mean [Standing (for 1 minute prior to obtaining)] Pulse Ox 100 98 Oxygen Delivery Method 01/30/25 13:45 01/30/25 14:00 01/30/25 14:15 Temperature Temperature Source Pulse Rate 53 L 53 L 55 L Pulse Rate [Lying] Pulse Rate [Sitting (for 1 minute prior to obtaining)] Pulse Rate [Standing (for 1 minute prior to obtaining)] Respiratory Rate 11 L 11 L 13 Respiratory Effort Respiratory Pattern Blood Pressure 148/63 H Blood Pressure [Lying] Blood Pressure [Sitting (for 1 minute prior to obtaining)] Blood Pressure [Standing (for 1 minute prior to obtaining)] Blood Pressure Mean 88 Blood Pressure Mean [Lying] Blood Pressure Mean [Sitting (for 1 minute prior to obtaining)] Blood Pressure Mean [Standing (for 1 minute prior to obtaining)] Pulse Ox 100 100 95 Oxygen Delivery Method 01/30/25 14:27 01/30/25 14:28 01/30/25 14:30 Temperature Temperature Source Pulse Rate 56 L 55 L Pulse Rate [Lying] Pulse Rate [Sitting (for 1 minute prior to obtaining)] Pulse Rate [Standing (for 1 minute prior to obtaining)] Respiratory Rate 21 H 13 Respiratory Effort Respiratory Pattern Blood Pressure 125/103 H 138/67 H 120/69 Blood Pressure [Lying] Blood Pressure [Sitting (for 1 minute prior to obtaining)] Blood Pressure [Standing (for 1 minute prior to obtaining)] Blood Pressure Mean 111 87 84 Blood Pressure Mean [Lying] Blood Pressure Mean [Sitting (for 1 minute prior to obtaining)] Blood Pressure Mean [Standing (for 1 minute prior to obtaining)] Pulse Ox 98 100 Oxygen Delivery Method 01/30/25 14:32 01/30/25 14:37 01/30/25 14:45 Temperature Temperature Source Pulse Rate 66 55 L Pulse Rate [Lying] 55 L Pulse Rate [Sitting (for 1 minute prior to obtaining)] 60 Pulse Rate [Standing (for 1 minute prior to obtaining)] 67 Respiratory Rate 21 H 10 L Respiratory Effort Respiratory Pattern Blood Pressure 111/62 Blood Pressure [Lying] 138/67 H Blood Pressure [Sitting (for 1 minute prior to obtaining)] 120/69 Blood Pressure [Standing (for 1 minute prior to obtaining)] 111/62 Blood Pressure Mean 76 Blood Pressure Mean [Lying] 90 Blood Pressure Mean [Sitting (for 1 minute prior to obtaining)] 86 Blood Pressure Mean [Standing (for 1 minute prior to obtaining)] 78 Pulse Ox 92 Oxygen Delivery Method 01/30/25 15:00 01/30/25 15:00 01/30/25 15:15 Temperature Temperature Source Pulse Rate 53 L 52 L Pulse Rate [Lying] Pulse Rate [Sitting (for 1 minute prior to obtaining)] Pulse Rate [Standing (for 1 minute prior to obtaining)] Respiratory Rate 13 9 L Respiratory Effort Respiratory Pattern Blood Pressure 147/66 H 147/66 H Blood Pressure [Lying] Blood Pressure [Sitting (for 1 minute prior to obtaining)] Blood Pressure [Standing (for 1 minute prior to obtaining)] Blood Pressure Mean 89 89 Blood Pressure Mean [Lying] Blood Pressure Mean [Sitting (for 1 minute prior to obtaining)] Blood Pressure Mean [Standing (for 1 minute prior to obtaining)] Pulse Ox 100 100 Oxygen Delivery Method 01/30/25 16:31 01/30/25 17:00 01/30/25 18:00 Temperature Temperature Source Pulse Rate 61 75 64 Pulse Rate [Lying] Pulse Rate [Sitting (for 1 minute prior to obtaining)] Pulse Rate [Standing (for 1 minute prior to obtaining)] Respiratory Rate 18 19 H 18 Respiratory Effort Respiratory Pattern Blood Pressure 127/71 H 133/60 H 140/71 H Blood Pressure [Lying] Blood Pressure [Sitting (for 1 minute prior to obtaining)] Blood Pressure [Standing (for 1 minute prior to obtaining)] Blood Pressure Mean 89 79 94 Blood Pressure Mean [Lying] Blood Pressure Mean [Sitting (for 1 minute prior to obtaining)] Blood Pressure Mean [Standing (for 1 minute prior to obtaining)] Pulse Ox 97 100 96 Oxygen Delivery Method Room Air [facility] <Dr. Jasson Garcia, DO - Last Filed: 01/30/25 17:38> [facility] MDM Narrative Medical decision making narrative: Differential diagnosis includes cardiac dysrhythmia, cardiac ischemia, pneumonia, anxiety, pulmonary embolism, and anxiety. CBC will be obtained to assess for leukocytosis and anemia. Basic metabolic profile will be obtained to assess for electrolyte abnormality and renal function. High-sensitivity troponin will be obtained to assess for cardiac ischemia. 2-hour repeat high-sensitivity troponin will be obtained to assess for ongoing cardiac ischemia. Chest x-ray will be obtained to assess for pneumonia or bronchitis. EKG will be obtained to assess for cardiac dysrhythmia and cardiac ischemia. CTA of the chest will be obtained to assess for pulmonary embolism. History & Record Review Additional record(s) reviewed:: Prior inpatient record, Prior outpatient record, Prior ED visit and Prior labs Lab Data Attestation: I reviewed the patient's lab results. Lab results narrative: CBC was reviewed. There is a mild anemia with a hemoglobin of 11.6 and hematocrit 36.4. Basic metabolic profile was reviewed. BUN was 30 and creatinine was 1.67. These are consistent with previous results. Glucose was mildly elevated at 123. Initial high-sensitivity troponin was reviewed and was normal at 12. 2-hour repeat high-sensitivity troponin was reviewed and was normal at 9. Labs: Laboratory Results - last 24 hr 01/30/25 01/30/25 01/30/25 11:07 13:58 15:39 WBC 6.6 RBC 4.04 L Hgb 11.6 L Hct 36.4 L MCV 90.1 MCH 28.7 MCHC 31.9 L RDW Std Deviation 46.4 H RDW Coeff of Kristy 14.2 Plt Count 293 MPV 10.3 Immature Gran % (Auto) 0.300 Neut % (Auto) 53.3 Lymph % (Auto) 33.0 Hyde % (Auto) 9.4 Eos % (Auto) 3.5 Baso % (Auto) 0.5 Absolute Neuts (auto) 3.5 Absolute Lymphs (auto) 2.17 Nucleated RBC % 0 Sodium 140 Potassium 4.1 Chloride 107 Carbon Dioxide 19.8 L Anion Gap 14 BUN 30 H Creatinine 1.67 H Estim Creat Clear Calc 26.06 L Est GFR (MDRD) Non-Af 30 L BUN/Creatinine Ratio 17.8 Glucose 123 H Calcium 9.2 Troponin T High Sens 12 Troponin T Hi Sens 2 Hr 9 Troponin T Hi Sens 4Hr 14 Radiography Chest X-Ray - ED: 2 View, Read by ED Physician, Read by Radiologist and - (Left lateral upper lobe nodule) Diagnostic Testing: Clinical Impression(s) from Imaging Studies Chest X-Ray 01/30/25 12:43 IMPRESSION: New 1.4 cm x 1.9 cm nodular density in the anterior lateral left upper lobe as described. CT scan correlation recommended. Reading Location: [id number] Chest CTA 01/30/25 15:25 IMPRESSION: No acute pulmonary emboli. Trace left base effusion. Spiculated lesion within the right upper lobe measuring 1.7 x 1.5 cm concerning for neoplastic process. Density within the right lower lobe which appears to track along an airway measuring approximally 2.2 x 1.0 cm which may reflect mucoid impaction although neoplastic process is not excluded. Question inflammation about the pancreas; consider CT AP if there is concern for acute pancreatitis. Reading Location: [facility]/[id number] PA and lateral chest x-ray was obtained. There are 2 views. On my independent interpretation, lung leyva shows a 1.4 cm x 1.9 cm nodular density in the anterolateral aspect of the left upper lobe. There is no acute infiltrate noted. There is normal cardiac silhouette. Bony thorax is normal. There is no acute process noted. Radiologist also interpreted the x-ray and recommended correlation with CT scan. Because of the finding on chest x-ray, CTA of the chest was obtained. EKG Initial EKG: Attestation: I personally reviewed and interpreted this EKG as follows: Interpretation: No Acute Injury Pattern and Sinus Bradycardia (58) Comments: EKG was obtained. On my independent interpretation, it showed a sinus bradycardia with a rate of 58. IA interval, QRS interval, and QTc intervals were all normal. [place] was normal. There are no acute ST or T wave changes. Prior EKG tracings: available for review Prior: Unchanged (09/23/2022) Treatment and Re-Evaluation :: Patient was given IV fluids. Orthostatic vital signs were obtained and were within normal limits. Patient was advised of her findings. Patient was feeling better on reevaluation. Patient is low risk for adverse event from syncope based on [place] syncope rule and [place] syncope rule. I feel patient can be discharged home. If there is something on the CTA of the chest which is more concerning, the patient will be admitted. Care of the patient was turned over to the oncoming physician pending CT results. <Dr. Hernán Ricks, DO - Last Filed: 01/30/25 18:51> [facility] Lab Data Labs: Laboratory Results - last 24 hr 01/30/25 01/30/25 01/30/25 11:07 13:58 15:39 WBC 6.6 RBC 4.04 L Hgb 11.6 L Hct 36.4 L MCV 90.1 MCH 28.7 MCHC 31.9 L RDW Std Deviation 46.4 H RDW Coeff of Kristy 14.2 Plt Count 293 MPV 10.3 Immature Gran % (Auto) 0.300 Neut % (Auto) 53.3 Lymph % (Auto) 33.0 [place] % (Auto) 9.4 Eos % (Auto) 3.5 Baso % (Auto) 0.5 Absolute Neuts (auto) 3.5 Absolute Lymphs (auto) 2.17 Nucleated RBC % 0 Sodium 140 Potassium 4.1 Chloride 107 Carbon Dioxide 19.8 L Anion Gap 14 BUN 30 H Creatinine 1.67 H Estim Creat Clear Calc 26.06 L Est GFR (MDRD) Non-Af 30 L BUN/Creatinine Ratio 17.8 Glucose 123 H Calcium 9.2 Troponin T High Sens 12 Troponin T Hi Sens 2 Hr 9 Troponin T Hi Sens 4Hr 14 Radiography Diagnostic Testing: Clinical Impression(s) from Imaging Studies Chest X-Ray 01/30/25 12:43 IMPRESSION: New 1.4 cm x 1.9 cm nodular density in the anterior lateral left upper lobe as described. CT scan correlation recommended. Reading Location: [id number] Chest CTA 01/30/25 15:25 IMPRESSION: No acute pulmonary emboli. Trace left base effusion. Spiculated lesion within the right upper lobe measuring 1.7 x 1.5 cm concerning for neoplastic process. Density within the right lower lobe which appears to track along an airway measuring approximally 2.2 x 1.0 cm which may reflect mucoid impaction although neoplastic process is not excluded. Question inflammation about the pancreas; consider CT AP if there is concern for acute pancreatitis. Reading Location: [id number] Treatment and Re-Evaluation :: Patient was given IV fluids. Orthostatic vital signs were obtained and were within normal limits. Patient was advised of her findings. Patient was feeling better on reevaluation. Patient is low risk for adverse event from syncope based on [place] syncope rule and [place] syncope rule. I feel patient can be discharged home. If there is something on the CTA of the chest which is more concerning, the patient will be admitted. Care of the patient was turned over to the oncoming physician pending CT results. Dr. Ricks: Patient was signed out to me by ED provider. At the time of signout, CTA chest was pending given x-ray showed a nodular density. CTA chest negative for PE. Patient has trace left based effusion. She has a spiculated lesion within the right upper lobe measuring 1.7 x 1.5 cm concerning for neoplastic process. Density within the right lower lobe which appears to track along an airway measuring approximately 2.2 x 1 cm which may reflect mucoid impaction although neoplastic process is not excluded. Question inflammation about the pancreas. Considered CT if concern for acute pancreatitis. On my evaluation, patient not endorsing any abdominal pain. No need for CT abdomen. She has remained asymptomatic here in the emergency department. Vitals are stable other than mild hypertension. She is ambulated in the emergency department without difficulty. Patient was updated of her CTA chest findings, concern for neoplastic process. At this point in time, patient does not require any emergent inpatient workup for the neoplastic process instead we will refer her outpatient to PCP, pulmonology, and oncology. Return precautions explained. She confirmed understand the plan. Patient stable to discharge home. Discharge Plan Triage Chief Complaint: Syncope ED Provider: Jasson Garcia Dx/Rx/DC Orders Clinical Impression: Syncope and collapse, Chronic kidney disease Instructions: ED Fainting, Uncertain Cause Prescriptions: No Action peg 3350-electrolytes [Golytely] 236-22.74-6.74 -5.86 gram recon soln 240 ml PO Q10M Qty: 4000 0RF Rx Instructions: until fecal effluent is clear biotin 1,000 mcg Tablet,Chewable 1,000 mcg PO DAILY acetaminophen 325 mg capsule 650 mg PO Q6H PRN (Reason: fever or pain) Qty: 1 0RF levothyroxine 75 mcg Tablet 75 mcg PO DAILY Qty: 30 0RF Rx Instructions: Take in the AM with water on empty stomach. No eating or drinking for 30 min. Eliquis 2.5 mg tablet 2.5 mg PO BID Qty: 60 0RF zd-puu-CA-vit B-yxtonb-haoxyyl [PreserVision AREDS 2 Plus MV] 1 cap PO .QD aspirin 81 mg Tablet,Chewable 81 mg PO BREAKFAST 21 Days Qty: 21 0RF ferrous sulfate 324 mg (65 mg iron) tablet,delayed release (DR/EC) 324 mg PO .QOD metoprolol tartrate 25 mg tablet 12.5 mg PO .QD Rx Instructions: 1/2 tab every 12H Primary Care Provider: Reddy Crowe Referrals: Reddy Crowe MD [Primary Care Provider] - 5-7 Days Print Language: Burmese
--- NOTE | 2025-01-30 12:43 | RAD_ITS ---
PROCEDURE: CHEST PA AND LATERAL 01/30/2025 REASON FOR EXAM: SYNCOPE TECHNIQUE: Procedure Code: RADCXR Modality: DX Procedure: CHEST PA AND LATERAL COMPARISON: Prior study dated September 23, 2022. FINDINGS: Hardware: EKG electrodes are seen. Heart: The heart size is normal. A loop recording device is seen overlying the left cardiac border. Mediastinum: The mediastinal contour is unremarkable. Lungs: There is a new 1.4 cm 1.9 cm nodular density in the anterior lateral aspect of the left upper lobe. Correlation with CT scan recommended. Bones: Mild degenerative changes. Moderate-sized hiatal hernia. RAD/Chest PA and Lateral IMPRESSION: New 1.4 cm x 1.9 cm nodular density in the anterior lateral left upper lobe as described. CT scan correlation recommended. Reading Location: [id number]
[2025-01-30 12:53] LABS: Hematocrit 36.4 % (37-47); Hemoglobin 11.6 g/dL (12.0-15.0); Immature Granulocytes Count 0.020 X10^3/uL (0.0-0.0); Mean Corp Hgb Conc 31.9 g/dL (32-36); Mean Corpuscular Volume 90.1 fL (81-99); Mean Platelet Vol. 10.3 fl (6.2-12.0); NRBC Flagged by Analyzer 0 % (0-5); Platelet Count 293 K/mm3 (150-450); RBC Distribution Width CV 14.2 % (11.6-14.6); RBC Distribution Width SD 46.4 fl (35.1-43.9); Red Blood Count 4.04 M/mm3 (4.2-5.4); White Blood Count 6.6 K/mm3 (4.4-11.0)
[2025-01-30 13:31] LABS: Anion Gap 14 (5-15); BUN 30 mg/dL (4-19); BUN/Creat Ratio 17.8 RATIO (10-20); Calcium,Total 9.2 mg/dL (7.6-11.0); Carbon Dioxide 19.8 mmol/L (21.0-32.0); Chloride 107 mmol/L (98-108); Estimated Creatinine Clearance 26.06 ml/min (50-250); Glucose 123 mg/dL (70-99); Potassium 4.1 mmol/L (3.3-5.1); Troponin T High Sensitivity 12 ng/L (<=14)
[2025-01-30 14:30] LABS: Troponin T High Sens 2 HR 9 ng/L (<=14)
[2025-01-30] MEDS: 0.9% Normal Saline (1000mL) 1,000 ML 999 ML IV (14:37)
--- NOTE | 2025-01-30 15:10 | CM.ED ---
Social Work SW met with patient and patients LAZARO, patient told SW that she had not eaten this morning because she did not have any of her favorite quiche in her refridgerator. Patient denies any concerns getting to the grocery store or not having enough money to get food. SW met with LAZARO in private who stated that patient is able and does go to the grocery store for groceries, that he and his have her over for dinner one to two days a week and they go out to eat once a week. LAZARO was just concerned that patient is not eating enough healthy foods and eats processed foods for meals. SW met with patient privately again, patient stated she was just uninspired when she goes to the grocery store and meals do not look good. Patient again denies any concerns with ability to get food or funds, denies need for additional resources. No further needs identified at this time. Nancy Tovar, HEALTH CARE COACH, SAVINGS TE[employer]ER
--- NOTE | 2025-01-30 15:25 | CT_ITS ---
PROCEDURE: CTA CHEST W/WO CONTRAST 01/30/2025 REASON FOR EXAM: PULMONARY NODULE TECHNIQUE: Procedure Code: CTCTACHWW Modality: CT Procedure: CTA CHEST W/WO CONTRAST Multiplanar Sagittal and Coronal images were obtained. One or more dose reduction techniques were used (e.g., Automated exposure control, adjustment of the mA and/or kV according to patient size, use of iterative reconstruction technique). CONTRAST: 100 mL of Isovue 370 RADIATION DOSE SUMMARY: DLP: 167 mGycm COMPARISON: none FINDINGS: PULMONARY ARTERIES: No evidence of pulmonary embolism. LUNGS AND PLEURA: Spiculated lesion within the right upper lobe measuring 1.7 x 1.5 cm best seen on series 2, image 137 concerning for neoplastic process. Density within the right lower lobe which appears to track along an airway measuring approximally 2.2 x 1.0 cm best seen on series 2, image 119 which may reflect mucoid impaction although neoplastic process is not excluded. No definite pulmonary edema. Trace left base effusion. No pneumothorax. MEDIASTINUM: Scattered mediastinal lymphadenopathy measuring up to 1.2 cm within the paratracheal region. The heart shows no acute findings. Mild coronary atherosclerosis. The aorta shows no acute findings. The pulmonary trunk, and branches of the vessels in the mediastinum are within normal limits. SUPRACLAVICULAR AND AXILLARY: No abnormalities seen in these regions. No mass or significant lymphadenopathy. UPPER ABDOMEN: Large hiatal hernia. Question inflammation about the pancreas; consider CT AP if there is concern for acute pancreatitis. BONES AND SOFT TISSUES: The ribs are unremarkable. The visualized spine shows no significant acute findings. No focal bony mass lesions noted. The subcutaneous soft tissues are unremarkable. CT/CTA Chest W/WO Contrast IMPRESSION: No acute pulmonary emboli. Trace left base effusion. Spiculated lesion within the right upper lobe measuring 1.7 x 1.5 cm concerning for neoplastic process. Density within the right lower lobe which appears to track along an airway geno uring approximally 2.2 x 1.0 cm which may reflect mucoid impaction although neoplastic process is not excluded. Question inflammation about the pancreas; consider CT AP if there is concern fo r acute pancreatitis. Reading Location: [id number]
[2025-01-30 16:09] LABS: Troponin T High Sens 4 HR 14 ng/L (<=14)
== END 2025-01-30 19:05 | disposition home or self-care (01) ==
PROVIDERS: Emergency Provider Emergency Medicine; PCP Family Medicine; Visit Provider Emergency Medicine
DX: R55 Syncope and collapse (principal); I48.91 Unspecified atrial fibrillation; N18.9 Chronic kidney disease, unspecified; Z86.73 Personal history of transient ischemic attack (TIA), and cerebral infarction without residual deficits; Z79.01 Long term (current) use of anticoagulants; E03.9 Hypothyroidism, unspecified; Z79.890 Hormone replacement therapy; Z87.891 Personal history of nicotine dependence
CPT/HCPCS: 71046; 71275; 80048; 84484; 85025; 93005; 96360; 96361; 99284; Q9967; A4216

== ENCOUNTER → 2025-02-05 | Outpatient (CLI) | payer MEDICARE, SELFPAY ==
[2025-02-05 11:44] LABS: Hematocrit 37.3 % (37-47); Hemoglobin 11.7 g/dL (12.0-15.0); Immature Granulocytes Count 0.020 X10^3/uL (0.0-0.0); Mean Corp Hgb Conc 31.4 g/dL (32-36); Mean Corpuscular Volume 90.1 fL (81-99); Mean Platelet Vol. 9.7 fl (6.2-12.0); NRBC Flagged by Analyzer 0 % (0-5); Platelet Count 251 K/mm3 (150-450); RBC Distribution Width CV 14.9 % (11.6-14.6); RBC Distribution Width SD 48.4 fl (35.1-43.9); Red Blood Count 4.14 M/mm3 (4.2-5.4); White Blood Count 5.7 K/mm3 (4.4-11.0)
[2025-02-05 12:40] LABS: AST(SGOT) 45 U/L (<=31); Alanine Aminotransfer ALT/SGPT 57 U/L (<=34); Albumin, Serum 3.8 g/dL (3.4-4.8); Alkaline Phosphatase 179 U/L (35-104); Anion Gap 12 (5-15); BUN 25 mg/dL (4-19); BUN/Creat Ratio 16.1 RATIO (10-20); Calcium,Total 9.2 mg/dL (7.6-11.0); Carbon Dioxide 21.5 mmol/L (21.0-32.0); Chloride 106 mmol/L (98-108); Globulin 3.4 g/dL (2.2-4.2); Glucose 83 mg/dL (70-99); Potassium 3.8 mmol/L (3.3-5.1)
[2025-02-06 05:07] LABS: HEPATITIS B SURFACE AG Negative (Negative); Hep C Antibodies Non Reactive (Non Reactive)
== END | disposition home or self-care (01) ==
LOC: LAB 10:55
PROVIDERS: PCP Family Medicine; Referring Provider Student in an Organized Health Care Education/Training Program; Visit Provider Student in an Organized Health Care Education/Training Program
DX: R10.9 Unspecified abdominal pain (principal); R19.5 Other fecal abnormalities
CPT/HCPCS: 36415; 80053; 80074; 85025

== ENCOUNTER → 2025-02-14 | Outpatient (CLI) | payer MEDICARE, SELFPAY ==
[2025-02-17 02:07] LABS: Calprotectin, Stool 2530 ug/g (0-120)
== END | disposition home or self-care (01) ==
LOC: LABSPEC 11:59
PROVIDERS: PCP Family Medicine; Referring Provider Student in an Organized Health Care Education/Training Program; Visit Provider Student in an Organized Health Care Education/Training Program
DX: R19.5 Other fecal abnormalities (principal)
CPT/HCPCS: 83993

== ENCOUNTER → 2025-02-27 | Outpatient (CLI) | payer MEDICARE, SELFPAY ==
--- NOTE | 2025-02-27 09:27 | CT_ITS ---
PROCEDURE: ABDOMEN/PELVIS WITH CONTRAST 02/27/2025 REASON FOR EXAM: ABD PAIN Left lower quadrant pain. Diverticulitis. TECHNIQUE: Procedure Code: [id number] Modality: CT Procedure: ABDOMEN/PELVIS WITH CONTRAST Coronal and Sagittal reconstruction series were provided. CONTRAST: Isovue-300 VOLUME: 100 mL One or more dose reduction techniques were used (e.g., Automated exposure control, adjustment of the mA and/or kV according to patient size, use of iterative reconstruction technique. RADIATION DOSE SUMMARY: CTDlvol: 16.5 mGy DLP: 1023.04 mGycm COMPARISON: None FINDINGS: Lung bases: There are 3 subcentimeter nodules in the left lower lobe. Large hiatal hernia. Liver: Normal size. No mass. Gallbladder: Unremarkable. Spleen: Normal size. Pancreas: Heterogeneous enlargement at the level of the head of the pancreas with small cystic changes. There is evidence of circumferential wall thickening of the 2nd and 3rd portions of the duodenum. Endoscopic correlation recommended. Adrenals: Unremarkable Kidneys: Normal renal sizes. No hydronephrosis. Bladder: I suspect a 1.6 cm right-sided bladder diverticulum. Reproductive Organs: Unremarkable Bowel: Sigmoid colon diverticula with wall thickening and adjacent inflammatory changes. No evidence of perforation or abscess. Appendix: Unremarkable Lymph nodes: Unremarkable. Vasculature: Mild diffuse atherosclerotic calcifications are noted. Peritoneum / Retroperitoneum: Small volume free fluid in the pelvis nonspecific and usually physiologic in a female patient of this age. Bones: Degenerative changes of the spine. CT/Abdomen/Pelvis WITH Contrast IMPRESSION: Heterogeneous enlargement of the head of the prostate as described with diffuse circumferential wall thickening of the 2nd and 3rd portions of the duodenum. Endoscopic correlation recommended. Large hiatal hernia. Non complicated acute sigmoid diverticulitis. Reading Location: [id number]
== END | disposition home or self-care (01) ==
PROVIDERS: PCP Family Medicine; Referring Provider Student in an Organized Health Care Education/Training Program; Visit Provider Student in an Organized Health Care Education/Training Program
DX: R10.9 Unspecified abdominal pain (principal); R19.5 Other fecal abnormalities
CPT/HCPCS: 74177; Q9967

== ENCOUNTER → 2025-03-05 | Outpatient (CLI) | payer MEDICARE, SELFPAY ==
--- NOTE | 2025-03-05 10:30 | PET_ITS ---
PROCEDURE: PET/CT TUMOR BASE -THIGH INIT 03/05/2025 REASON FOR EXAM: 84 y/o F with ABNORMAL FINDING ON CT; LUNG NODULE TECHNIQUE: Procedure Code: PETPTCTINIT Modality: PT Procedure: PET/CT TUMOR BASE -THIGH INIT After intravenous injection of 17.9 millicuries of FDG and a standard uptake period, a noncontrast CT scan, followed by a PET scan were acquired along the length of the body from the base of the skull to the mid thighs. The noncontrast helical CT imaging was performed without breath hold, for attenuation correction of PET images and anatomic correlation, but not for primary interpretation, as it is not of the standard diagnostic quality. Images were reviewed in the axial, coronal and sagittal planes. RADIATION DOSE SUMMARY: Effective Dose: Approximately 7 mSv for a standard whole-body PET scan Organ Doses: Varies by organ, with higher doses typically to the bladder, liver, and brain CTDI: 9.1 mGy. DLP: 839.05 mGy cm. COMPARISON: COMPARISON FROM CT, PET OR OTHER PERTINENT EXAMS: CTA chest, 01/30/2025; CT abdomen and pelvis with contrast, 02/27/2025. FINDINGS: Physiologic uptake: There may be expected metabolic uptake within the brain, tongue and floor of the mouth and larynx/vocal cords, heart, vitaliy (many normal individuals have hilar uptake in less than 3 nodes with mildly avid hilar nodes less than 2.7 SUV), liver and spleen, system, and GI tract and symmetric muscle uptake. FDG AVID AND NON-AVID LESIONS. Reported avid SUV values (g/mL) are maximum SUV. Head and neck: There is a normal distribution of FDG activity in the visualized brain parenchyma. There is normal uptake within the soft tissues of the neck and glandular structures. There is no hypermetabolic lymphadenopathy. Chest: There is a pleural-based soft tissue density nodule with a spiculated margin in the upper lobe of the left lung, measuring 14 x 9 mm, max SUV 7.4. There is a 10 x 6 mm soft tissue density nodule in the lower lobe of the right lung, max SUV 6.2. There is a left hilar lymph node measuring 9 x 8 mm, max SUV 10.4. There is a small left pleural effusion, max SUV 1.8. The heart size is normal. There is no pericardial effusion. There is calcific vascular disease of the coronary arteries and thoracic aorta. There is a loop recorder in the left chest wall. There is a large hiatal hernia containing almost the entire stomach and a portion of the transverse colon. Abdomen and pelvis: There is minimal calcific vascular disease of the abdominal aorta. There is no abnormal activity in the pancreas or duodenum. There is severe sigmoid diverticulosis. There might be mild acute diverticulitis (max SUV 3.9), but most of the activity is in the lumen of the sigmoid colon. There are injection granulomas in both buttocks. There is a normal distribution of FDG activity within the genitourinary tract. There is no hypermetabolic lymphadenopathy identified. Musculoskeletal: There are no suspicious hypermetabolic osteolytic or osteosclerotic lesions. Uptake time: 60 minutes. Mediastinal blood pool: Max SUV, 3.1 Blood glucose: 116 BMI: 28.3 PET/PET/CT Tumor Base -Thigh Init IMPRESSION: 1. Pleural-based hypermetabolic nodule in the upper lobe of the left lung cons istent with a primary bronchogenic carcinoma. 2. 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 3. Hypermetabolic left hilar lymph node consistent with metastatic disease. 4. Other findings as noted. Reading Location: [place] [id number]
== END | disposition home or self-care (01) ==
PROVIDERS: PCP Family Medicine
DX: R91.1 Solitary pulmonary nodule (principal)
CPT/HCPCS: 78815; A9552

== ENCOUNTER 2025-03-10 22:18 | Emergency (ER) | payer MEDICARE, SELFPAY ==
[2025-03-10 22:19] VITALS: BP 99/63; PULSE 111; RESP 16; TEMP 36.9; O2SAT 100; BMI 30.3
[2025-03-10] MEDS: 0.9% Normal Saline (1000mL) 1,000 ML 1000 ML IV (23:21)
[2025-03-10 23:22] LABS: Hematocrit 38.2 % (37-47); Hemoglobin 12.8 g/dL (12.0-15.0); Immature Granulocytes Count 0.080 X10^3/uL (0.0-0.0); Mean Corp Hgb Conc 33.5 g/dL (32-36); Mean Corpuscular Volume 89.3 fL (81-99); Mean Platelet Vol. 9.6 fl (6.2-12.0); NRBC Flagged by Analyzer 0 % (0-5); Platelet Count 216 K/mm3 (150-450); RBC Distribution Width CV 16.2 % (11.6-14.6); RBC Distribution Width SD 53.3 fl (35.1-43.9); Red Blood Count 4.28 M/mm3 (4.2-5.4); White Blood Count 18.1 K/mm3 (4.4-11.0)
[2025-03-10 23:49] LABS: AST(SGOT) 63 U/L (<=31); Alanine Aminotransfer ALT/SGPT 84 U/L (<=34); Albumin, Serum 3.7 g/dL (3.4-4.8); Alkaline Phosphatase 208 U/L (35-104); Anion Gap 12 (5-15); BUN 28 mg/dL (4-19); BUN/Creat Ratio 18.9 RATIO (10-20); Calcium,Total 9.2 mg/dL (7.6-11.0); Carbon Dioxide 21.3 mmol/L (21.0-32.0); Chloride 101 mmol/L (98-108); Estimated Creatinine Clearance 29.62 ml/min (50-250); Globulin 3.2 g/dL (2.2-4.2); Glucose 128 mg/dL (70-99); Lipase 27 U/L (13-75); Potassium 5.0 mmol/L (3.3-5.1)
[2025-03-11] MEDS: Piperacil/Tazobactam 3.375 GM in 0.9% Normal Saline (50mL MB+) 50 ML IV (00:15)
[2025-03-11 00:40] VITALS: PULSE 65; RESP 18; O2SAT 98
[2025-03-11 00:55] VITALS: BP 92/48; PULSE 68; RESP 18; TEMP 36.9; O2SAT 98
== END 2025-03-11 00:56 | disposition home or self-care (01) ==
PROVIDERS: Emergency Provider Student in an Organized Health Care Education/Training Program; PCP Family Medicine; Visit Provider Student in an Organized Health Care Education/Training Program
DX: K57.92 Diverticulitis of intestine, part unspecified, without perforation or abscess without bleeding (principal); I48.91 Unspecified atrial fibrillation; N18.32 Chronic kidney disease, stage 3b; Z87.891 Personal history of nicotine dependence; R10.30 Lower abdominal pain, unspecified; Z86.73 Personal history of transient ischemic attack (TIA), and cerebral infarction without residual deficits; E03.9 Hypothyroidism, unspecified; Z79.01 Long term (current) use of anticoagulants; Z79.890 Hormone replacement therapy; Z79.82 Long term (current) use of aspirin; Z79.899 Other long term (current) drug therapy
CPT/HCPCS: 74177; 80053; 83690; 85025; 96361; 96365; 99283; Q9967; A4216